=== PATIENT | male | born 1970 | race Caucasian/White ===

== ENCOUNTER 2016-06-27 06:43 | Inpatient (IN) ==
[~2016-06-27 06:43] MED LIST: AMIODARONE 450 MG/9 ML VIAL IV ONE; NOREPINEPHRINE 4 MG/4 ML VIAL IV ONE
[2016-06-27] MEDS ORDERED: AMIODARONE INJ 450 MG in DEXTROSE 5% 241 ML IV SCH (06:45)
--- NOTE | 2016-06-27 07:10 | Emergency Department Note ---
Tommy Crews Gwan, am scribing for, and in the presence of, Sheldon Gaspar MD 06:59. Chasity Crews Phillip K, MD, personally performed the services described in this documentation, ascribed by Terrell Sanders in my presence, and it is both accurate and complete . 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 Nurses noted that pt was present at gym this morning when he became unresponsive. Patient was found by a bystander at the gym to which EMS was alerted. Patient apparently had an unwitnessed arrest and was found unresponsive. Patient was taken and resuscitated. Patient had a return of circulation at 430 a.m. Air care transferred the patient here and is currently on amiodarone infusion,a levaphed infusion and insulin infusion. Patient is also on a Diprivan infusion and a bicarbonate infusion. Patient has received a total of 3 L of fluids. Patient's initial glucose at [facility] was over 900. Patient known diabetic and hypertension. Patient's initial pH was 6.97. On arrival to the ED the patient is breathing on his own. He is intubated. Patient's initial rhythm was V-fib. And he was countershocked several times and given amiodarone with return of pulse. Accu-Chek on arrival to the ED was 297. We will stop the insulin infusion. We also stopped the levaphed infusion. Onset (ago): hour(s) Consistency: constant Severity: severe Allergies/Adverse Reactions: Allergies Allergy/AdvReac Type Severity Reaction Status Date / Time No Known Allergies Allergy Verified 06/27/16 06:44 Home Medications: Home Medications Medication Instructions Recorded Confirmed Type Unable To Obtain [Unable to Obtain] 06/27/16 06/27/16 History Review of System - Review of System ROS unobtainable: due to endotracheal tube, due to mental status Medical,Surgical,& Family Hx - Medical History Cardio: History of: Hypertension Endocrine: History of: Diabetes Mellitus (IDDM) Exam Vital Signs: Vital Signs Temperature 97.7 F 06/27/16 06:43 Pulse Rate 118 H 06/27/16 06:43 Respiratory Rate 18 06/27/16 06:50 Blood Pressure 197/100 06/27/16 06:43 O2 Sat by Pulse Oximetry 91 L 06/27/16 06:43 - General Exam limited due to: level of distress (severe) General appearance: other (patient is intubated) - Head Head exam: Present: atraumatic - Eye Eye exam: Absent: PERRL (pupils are mid position and nonreactive to light.) - ENT ENT exam: Present: normal exam - Chest Chest inspection: Present: normal inspection - Respiratory Respiratory exam: Present: rales - Cardiovascular Cardiovascular exam: Present: normal rhythm, tachycardia. Absent: murmur, rubs - Abdominal Exam Abdominal exam: Present: soft, tenderness, normal bowel sounds. Absent: distention - Rectal Exam Rectal exam: Present: deferred - Extremities Exam Extremities exam: Present: normal inspection - Back Exam Back exam: Present: normal inspection - Neurological Exam Neurological exam: Present: other (patient intubated) - Skin Skin exam: Present: warm, dry Course Course Narrative: Patient discussed with the hospitalist. Results - Labs CBC & BMP: 06/27/16 07:02 06/27/16 Unknown Lab Results: I have reviewed the patients labs Labs: Laboratory Tests 06/27/16 06/27/16 06/27/16 07:00 07:26 Unknown ABG pH 7.333 L ABG pCO2 43.6 ABG pO2 243.0 H ABG HCO3 22.0 ABG Total CO2 20.2 L ABG O2 Saturation 99.2 ABG Base Excess -2.9 L POC Glucose 297 H Lactic Acid 7.2 H Laboratory Tests 06/27/16 07:02 WBC 23.7 H RBC 4.28 Hgb 13.1 L Hct 39.4 L Plt Count 249 Neut % (Auto) 86.9 H Lymph % (Auto) 6.3 L Neut # (Auto) 20.6 H Har[place] # (Auto) 0.9 H Lymphocytes 9 L - EKG EKG results: interpreted by ZOILA (sinus tachycardia with an old septal PR.) - Diagnostic Findings Procedure: Chest x-ray: report reviewed by me (1. Tubes and lines as above. 2. The interstitial markings are slightly prominent bilaterally. This could represents minimal pulmonary edema. ) Disposition Clinical Impression: status post cardiopulmonary arrest Disposition: Still a Patient
[2016-06-27 07:19] LABS: Basophils # 0.1 10*3/uL (0.0-0.2); Basophils % 0.3 % (0.0-0.8); Eosinophils # 0.1 10*3/uL (0.0-0.87); Eosinophils % 0.5 % (0.00-10.9); Hematocrit 39.4 VOL% (42.0-52.0); Hemoglobin 13.1 GM/DL (14.0-18.0); Immature Granulocytes % 2.3 %; Immature Granulocytes Absolute 0.54 #; Lymphocytes # 1.5 10*3/uL (1.4-4.0); Lymphocytes % 6.3 % (21.2-54.2); Mean Corpuscular HGB Conc 33.2 GM/DL (32-36); Mean Corpuscular Hemoglobin 31 PG (27-34); Mean Corpuscular Volume 92.1 FL (87-102); Mean Platelet Volume 10.6 FL (9.6-12.0); Monocytes # 0.9 10*3/uL (0.11-0.8); Monocytes % 3.7 % (1.7-12.7); Neutrophils # 20.6 10*3/uL (1.4-7.4); Neutrophils % 86.9 % (38.7-73.9); Platelet Count 249 T/CUMM (130-400); Red Blood Count 4.28 MC/CUMM (3.8-5.5); Red Cell Distribution Width 13.1 % (9.3-17.3); White Blood Count 23.7 T/CUMM (4-12)
--- NOTE | 2016-06-27 07:25 | XRay Report ---
Referring Physician: Sheldon Gaspar Exam: XR chest 1V portable Date: June 27, 2016 at 7:08 AM Reason: Post intubation Comparison: None Findings: An endotracheal tube is in place with its distal tip projecting above the aortic arch, approximately 4.5 cm above the idalia. A feeding tube is seen extending into the stomach and beyond the [id number]. The cardiac silhouette is normal in size. The interstitial markings are slightly prominent bilaterally, which may reflect minimal pulmonary edema. No pneumothorax or pleural effusion is identified. No acute osseous process is seen. Impression: 1. Tubes and lines as above. 2. The interstitial markings are slightly prominent bilaterally. This could represent minimal pulmonary edema. PROCEDURE INTERPRETED AT [facility] OF RADIOLOG[facility] Final Report Signed by: Dr. Zlueyma Beard
[2016-06-27] MEDS ORDERED: METOPROLOL TARTRATE 5 MG/5 ML VIAL IV ONE ×2 (07:31→07:35)
[2016-06-27 07:32] LABS: ABG Base Excess -2.9 MMOL/L (-2.5-2.5); ABG Oxygen Saturation 99.2 % (95-100); ABG PCO2 43.6 MM HG (35-48); ABG PH 7.333 (7.35-7.45); ABG TCO2 20.2 MMOL/L (23-27)
[2016-06-27 07:38] LABS: Band Neutrophils 2 % (0-10); Hypochromasia 1+; Lymphocytes 9 % (20-55); Platelet Estimate Adequate; Segmented Neutrophils 85 % (50-85); Total Cells Counted 100
[2016-06-27 07:43] LABS: Albumin 3.6 G/DL (3.4-5.0); Bilirubin,Total 0.4 MG/DL (0.2-1.0); Calcium 7.9 MG/DL (8.5-10.1); Potassium 3.6 MMOL/L (3.5-5.1); Total Protein 6.8 G/DL (6.4-8.3)
[2016-06-27] MEDS ORDERED: ALBUTEROL 2.5 MG/3 ML NEB RESP TX PRN (08:01)
--- NOTE | 2016-06-27 08:07 | CT Report ---
Referring physician: Chente Lopez Exam: CT brain without contrast Date: June 27, 2016 Comparison: None Reason: Status post code, found unresponsive, altered level of consciousness The patient is an inpatient who was admitted on June 27, 2016. Technique: Axial images of the head were obtained without the use of contrast. Total DLP was 1033.0 mGy*cm. Findings: The sulci are effaced, and there is poor moreira-white matter differentiation. This is concerning for diffuse cerebral edema. No hydrocephalus or midline shift is present. There is no evidence of recent intracranial hemorrhage or a focal acute infarction. No acute osseous process is seen. There is mild scattered mucosal thickening within the bilateral ethmoid air cells and sphenoid sinuses. The mastoid air cells are clear. Impression: The sulci are effaced, and there is poor moreira-white matter differentiation bilaterally. This is concerning for diffuse cerebral edema. Please correlate with clinical findings. Findings were discussed with Dr. Lopez on June 27, 2016 at 8:00 AM. This is a critical test. The CT exam was performed using one or more of the following dose reduction techniques: Automated exposure control and adjustment of the mA and/or kV according to patient size. PROCEDURE INTERPRETED AT [facility] DEPARTMENT OF RADIOLOGY Final Report Signed by: Dr. Zuleyma Beard
[2016-06-27 08:11] LABS: Troponin I Only 15.2 NG/ML (0.00-0.045)
[2016-06-27] MEDS ORDERED: ACETAMINOPHEN 325 MG TABLET PO PRN (08:13)
[2016-06-27] MEDS ORDERED: ONDANSETRON 4 MG/2 ML VIAL IV PRN (08:13)
[2016-06-27] MEDS ORDERED: PROPOFOL 1,000 MG/100 ML BOTTLE IV SCH (08:30)
[2016-06-27] MEDS ORDERED: fentaNYL 100 MCG/2 ML VIAL IV ONE (08:52)
[2016-06-27] MEDS ORDERED: CISATRACURIUM 10 MG/5 ML VIAL IV ONE (08:53)
[2016-06-27] MEDS: ENOXAPARIN 40 MG/0.4 ML SYRINGE SUBCUT SCH (08:57)
[2016-06-27] MEDS: FAMOTIDINE 20 MG/2 ML VIAL IV SCH ×2 (08:57→21:33)
[2016-06-27] MEDS: cefTRIAXone 1,000 MG in SODIUM CHLORIDE 0.9% 100 ML IV SCH (08:57)
[2016-06-27] MEDS: SODIUM CHLORIDE 0.9% 1,000 ML IV SCH ×2 (08:58→18:03)
[2016-06-27] MEDS ORDERED: GLUCAGON 1 MG VIAL IM PRN (09:00)
[2016-06-27] MEDS ORDERED: DEXAMETHASONE 4 MG/1 ML VIAL IV ONE (09:00)
[2016-06-27] MEDS ORDERED: DEXTROSE 50% 25 GM/50 ML VIAL IV PRN (09:00)
[2016-06-27] MEDS ORDERED: MIDAZOLAM 2 MG/2 ML VIAL IV ONE (09:00)
--- NOTE | 2016-06-27 09:00 | Hospitalist History & Physical ---
Assessment and Plan - Time spent with patient Time spent with patient: Greater than 30 minutes (1) s/p cardiac arrest Status: Acute Assessment and plan: 46 year old white male s/p an unwitnessed cardiac arrest. Unresponsive at the scene. Resuscitated at [facility]. Intubated and transferred to [facility]. Admitted to ICU on diprovan and amiodarone. Arrived on levophed and was severely hypertensive. 5mg of Lopressor normalized BP 121/90. Patient in critical condition with guarded prognosis. Will continue mechanical ventilation , trending labs, consult cardiology, neurology and pulmonology. Current Visit: Yes (2) Cerebral edema due to anoxia Status: Acute Assessment and plan: Head CT showed effaced sulci, and poor moreira-white matter differentiation bilaterally. Pulmonology has been consulted to assist in hyperventilating the patient. Hypothermia protocol has been initiated. Will repeat CT. Current Visit: Yes (3) Leukocytosis Status: Acute Assessment and plan: WBC 23.7. Empirically started Rocephin for broad spectrum coverage. Current Visit: Yes History of Present Illness Chief complaint: s/p cardiac arrest History of present illness: Mr. Nuñez is a 46 year old male with a history significant for hypertension and NIDDM who presented to the [facility] ED via airlift EMS from [facility] for further evaluation s/p unwitnessed cardiac arrest at around 4am this morning. Per [facility] report, the patient was found unresponsive this morning at [employer] gym in [place]. Timestamped video from the gym showed the patient passed out after a set of arm curls at "1752". There was someone else working out alongside him who immediately began BLS chest compressions after finding the patient unresponsive. EMS arrived on the scene at "1610", and the patient was taken to the [facility] ED where he was resusitated and intubated. Pulse was noted to return at 0430. On exam in the [facility] ED, the patient is intubated, breathing on his own, unresponsive to painful stimuli in upper and lower extremities with fixed, nonreactive pupils. While in the ED, the patient became severely hypertensive but responded quickly to 5mg of Lopressor. History was taken from the family who notes he has hypertension and is diabetic. The patient recently started a workout routine and would go to the gym at 3:30 every morning. They noted he had begun tapering off of his HTN meds d/t his exercising. Family denies a history of tobacco use, alcohol, CAD, HLD, lung disorders. Lab: WBC 23.7, H&H 13.1 and 39.4, pH 7.33, pcO2 43.6, pO2 243.0, HCO3 22, total CO2 20.2, BUN 34, cr 2.00, Glu 266, Lactic Acid 7.2, Trop 15.2 The patient's condition is critical with guarded prognosis. He will be admitted to the ICU for further evaluation and management. He is listed as a full code. This case has been discussed with Dr. Gaspar and Dr. Lopez. Home Medications Medication Instructions Recorded Confirmed Type Unable To Obtain [Unable to Obtain] 06/27/16 06/27/16 History Allergies Allergy/AdvReac Type Severity Reaction Status Date / Time No Known Allergies Allergy Verified 06/27/16 06:44 Medical,Surgical,& Family Hx - Medical History Cardio: History of: Hypertension Endocrine: History of: Diabetes Mellitus (NIDDM) - Social History Smoking Status: Unknown if ever smoked Frequency of Alcohol Use: Unknown Type of Drug Use: Unknown Marital Status: Lives With:: Spouse Functional capacity: independent ambulation ROS unobtainable: due to endotracheal tube (patient intubated and unresponsive to painful stimuli) Exam - Constitutional General appearance: over weight, other (intubated, unresponsive) - Head Head exam: Present: normal inspection, normocephalic - Eye Eye exam: Absent: conjunctival injection, nystagmus, scleral icterus, laceration to eyelids Pupils: Present: fixed (nonreactive to light) - ENT ENT exam: Present: normal exam, normal external ear exam - Neck Neck exam: Present: normal inspection. Absent: lymphadenopathy - Respiratory Respiratory exam: Present: accessory muscle use, other (mechanical ventilation) . Absent: rales, rhonchi, wheezes - Cardiovascular Cardiovascular exam: Present: tachycardia. Absent: bradycardia, carotid bruit, JVD - GI/Abdominal GI/Abdominal exam: Present: normal bowel sounds, soft. Absent: ascites, distended, mass, tenderness - Extremities Exam Extremities exam: Present: normal inspection, normal capillary refill. Absent: edema - Neurological Exam Neurological exam: Present: other (intubated and sedated). Absent: reflexes normal (unresponsive to painful stimuli) - Skin Skin exam: Present: normal color, warm, dry, intact. Absent: abrasion, erythema Results - Labs CBC & BMP: 06/27/16 07:02 06/27/16 Unknown Lab Results: I have reviewed the past 24 hour labs - EKG EKG results: interpreted by ERMD - Diagnostic Findings Procedure: Chest x-ray: image reviewed by me, report reviewed by me ( unremarkable), CT: image reviewed by me, report reviewed by me (suggestive of cerebral edema)
[2016-06-27] MEDS ORDERED: POTASSIUM CHLORIDE RIDER 20 MEQ in PREMIX 1 EACH IV PRN (09:14)
[2016-06-27] MEDS ORDERED: POTASSIUM CHLORIDE RIDER 10 MEQ in PREMIX 1 EACH IV PRN ×2 (09:14→11:22)
[2016-06-27] MEDS ORDERED: MAGNESIUM SULF RIDER 4 GM in PREMIX 1 EACH IV PRN (09:15)
[2016-06-27] MEDS ORDERED: MAGNESIUM SULF RIDER 2 GM in PREMIX 1 EACH IV PRN ×2 (09:15→11:22)
[2016-06-27 09:28] LABS: Phosphorous 4.9 MG/DL (2.5-4.9)
[2016-06-27 09:29] LABS: INR 1.1; PT Patient Result 12.2 SECS; Partial Thromboplastin Time 23.1 SECS (0-40)
[2016-06-27] MEDS ORDERED: MANNITOL 100 GM in PREMIX 1 EACH IV ONE (09:30)
--- NOTE | 2016-06-27 09:51 | EKG Report ---
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
[2016-06-27 10:19] LABS: ABG Base Excess -4.3 MMOL/L (-2.5-2.5); ABG HCO3 20.9 MMOL/L (20-26); ABG Oxygen Saturation 98.8 % (95-100); ABG PCO2 32.2 MM HG (35-48); ABG PH 7.393 (7.35-7.45); ABG TCO2 17.2 MMOL/L (23-27)
[2016-06-27] MEDS: fentaNYL INJ 1,250 MCG in SODIUM CHLORIDE 0.9% 225 ML IV SCH ×2 (10:30→21:49)
[2016-06-27] MEDS: MIDAZOLAM 100 MG in SODIUM CHLORIDE 0.9% 80 ML IV SCH (10:33)
--- NOTE | 2016-06-27 10:34 | Cardiology Consult Note ---
Assessment and Plan - Time spent with patient Time spent with patient: Greater than 30 minutes (1) s/p cardiac arrest Status: Chronic Assessment and plan: Will plan for heart cath this morning in order to definitively rule out underlying CAD. Will keep patient NPO and plan for heart cath this morning with Dr. Molina. Risk and benefit of procedure was discussed with patient's per Dr. Boss. She agrees to proceed with this procedure at this time. We will keep patient n.p.o. and plan for heart catheterization per Dr. Molina today. Current Visit: Yes (2) Hypertension Status: Chronic Assessment and plan: Blood pressure is currently well controlled. Currently per arterial line 126/ 73. We will continue with current plan of care. Current Visit: Yes (3) Diabetes Status: Chronic Assessment and plan: Management per hospital medicine. Current Visit: Yes (4) Cerebral edema due to anoxia Status: Acute Assessment and plan: Management per hospital medicine. Current Visit: Yes History of Present Illness - Data of Consult Patient: new to practice Consult date: 06/27/16 Requesting Physician: Kapil Whitley - Consult Narrative Reason for consult: Status post cardiac arrest History of present illness: Mr. Nuñez is a 46 year old male without known history of coronary artery disease, not routinely followed by cardiology. Patient is status post cardiopulmonary arrest early this morning. He is currently divided and sedated in the CCU. No family is available at this time. Majority of information in this consult note was obtained from medical personnel and patient's medical record. Patient has a past medical history of hypertension and diabetes. Apparently, family denies a history of tobacco and alcohol use. He reports that he recently started a workout routine and has begun attending the gym at around 330 every morning. His family also reports that his been tapering off his blood pressure medicines lately since he has started his new workout routine. He has cardiac risk factors significant for obesity, diabetes, and hypertension. Patient has family history of heart disease. Of note, does report that he has been complaining of mild chest pain for the past couple of days. Patient presented to the emergency department via air care from [facility] after having a cardiopulmonary arrest approximately 2 hours prior to arrival. Patient was at the gym working out at 3:30 AM when he became unresponsive. Per [facility] report, the patient was found unresponsive this morning at [employer] gym in [place]. Timestamped video from the gym showed the patient passed out after a set of arm curls. There was someone else working out who immediately began chest compressions after finding the patient unresponsive. Patient was then taken to [facility] and resuscitated and intubated. Upon arrival to [facility], he was noted to be in the V-fib. He received several shocks and was given amiodarone. He had a return of circulation around 4:30 AM. Blood glucose was noted to be over 900 at [facility]. Subsequently, insulin infusion was started. Once in stable condition , patient was in transfer via air care to [facility]. Upon arrival to [place] [facility], her Accu-Chek was noted to be 297. Insulin infusion was then stopped at that time. He was also noted to be severely hypertensive. He responded well after receiving 5 mg of Lopressor. Patient was seen and examined in the CCU. He is currently sedated and intubated at this time. Hypothermia protocol was initiated upon arrival to [facility]. He remains extremely hypertensive and tachycardic. Troponin is noted to be 15.2. EKG does reveal poor R-wave progression. No prior EKGs available for comparison. A blood cell count is elevated at 23.7 with a left shift. Creatinine is noted to be 2.0. Lactic acid 7.2. Nitrites are stable with potassium of 3.6 and magnesium 2.5. AST and ALT are also elevated, along with Amylase and Lipase. Patient appears to be in multi-system organ failure. Head CT reveals diffuse cerebral edema. After discussing case with Dr. Boss, it was decided that patient needs a heart cath in order to definitively rule out underlying CAD. Will keep patient NPO and plan for heart cath this morning with Dr. Molina. CC: Chente Lopez MD - Home Medications and Allergies Home Medications: Home Medications Medication Instructions Recorded Confirmed Type Unable To Obtain [Unable to Obtain] 06/27/16 06/27/16 History Allergies/Adverse Reactions: Allergies Allergy/AdvReac Type Severity Reaction Status Date / Time No Known Allergies Allergy Verified 06/27/16 06:44 ROS unobtainable: due to endotracheal tube Medical,Surgical,& Family Hx - Medical History Cardio: History of: Hypertension Endocrine: History of: Diabetes Mellitus (NIDDM) - Surgical History Surgical History: noncontributory - Family History Family History: noncontributory - Social History Smoking Status: Unknown if ever smoked Frequency of Alcohol Use: Unknown Type of Drug Use: Unknown Physical Examination Vital Signs Temp Pulse Resp BP Pulse Ox 97.1 F L 118 H 30 H 197/100 91 L 06/27/16 06:43 06/27/16 06:43 06/27/16 06:43 06/27/16 06:43 06/27/16 06:43 General: Present: Other (Patient is sedated and ventilated in the CCU.) Neck: Present: Supple Neck Cardiac: Present: Reg Rate and Rhythm, Regular Rate, Regular Rhythm Lungs: Present: Clear Ascult./Percussion, Other (Ventilator breath sounds.) Abdomen: Present: Active Bowel Sounds, Other (Soft). Absent: Firm, Distended Extremities: Present: Normal Gait, No Clubbing, No Cyanosis, No Edema Result/EKG - Labs CBC & BMP: 06/27/16 07:02 06/27/16 Unknown Lab Results: I have reviewed the past 24 hour labs Labs: Laboratory Results - last 24 hr 06/27/16 06/27/16 06/27/16 07:25 07:26 07:39 ABG pH 7.333 L ABG pCO2 43.6 ABG pO2 243.0 H ABG HCO3 22.0 ABG Total CO2 20.2 L ABG O2 Saturation 99.2 ABG Base Excess -2.9 L Sodium Potassium Chloride Carbon Dioxide Anion Gap BUN Creatinine GFR Calculation BUN/Creatinine Ratio Glucose Calculated Osmolality Lactic Acid Calcium Magnesium 2.5 H Total Bilirubin AST ALT Alkaline Phosphatase Total Creatine Kinase CK-MB (CK-2) CK and CKMB Interp Troponin I B-Natriuretic Peptide < 2 L Total Protein Albumin Globulin Albumin/Globulin Ratio 06/27/16 06/27/16 06/27/16 09:36 10:00 Unknown ABG pH 7.393 ABG pCO2 32.2 L ABG pO2 139.0 H ABG HCO3 20.9 ABG Total CO2 17.2 L ABG O2 Saturation 98.8 ABG Base Excess -4.3 L Sodium Potassium Chloride Carbon Dioxide Anion Gap BUN Creatinine GFR Calculation BUN/Creatinine Ratio Glucose Calculated Osmolality Lactic Acid 4.7 H 7.2 H Calcium Magnesium Total Bilirubin AST ALT Alkaline Phosphatase Total Creatine Kinase CK-MB (CK-2) CK and CKMB Interp Troponin I B-Natriuretic Peptide Total Protein Albumin Globulin Albumin/Globulin Ratio 06/27/16 06/27/16 Unknown Unknown ABG pH ABG pCO2 ABG pO2 ABG HCO3 ABG Total CO2 ABG O2 Saturation ABG Base Excess Sodium 143 Potassium 3.6 Chloride 106 Carbon Dioxide 24 Anion Gap 16.6 H BUN 34 H Creatinine 2.00 H GFR Calculation 51 BUN/Creatinine Ratio 17.00 Glucose 266 H Calculated Osmolality 301.0 Lactic Acid Calcium 7.9 L Magnesium Total Bilirubin 0.40 AST 774 H ALT 886 H Alkaline Phosphatase 63 Total Creatine Kinase 2316 H CK-MB (CK-2) 114.9 H CK and CKMB Interp 5.0 Troponin I 15.200 H B-Natriuretic Peptide Total Protein 6.8 Albumin 3.6 Globulin 3.2 Albumin/Globulin Ratio 1.1
[2016-06-27] MEDS: CISATRACURIUM 200 MG in SODIUM CHLORIDE 0.9% 100 ML IV SCH (10:37)
[2016-06-27 10:58] LABS: Barbiturates Screen,Urine Negative (Negative); Benzodiazepines Screen,Urine Negative (Negative); Cannabinoid Screen,Urine Negative (Negative); Opiate Screen,Urine Negative (Negative); Phencyclidine Screen,Urine Negative (Negative)
--- NOTE | 2016-06-27 11:07 | Pulmonology Consult Note ---
History of Present Illness Chief complaint: Acute cardiac arrest. Mechanical ventilation. Arctic sun. History of present illness: Mr. Nuñez is a 46 year old white male from [place]. He was found at 4 PM unresponsive in the gym that he worked out and in the mornings. He was taken to [place] emergency room and resuscitative measures were begun. At the present time he has evidence of acute myocardial infarction. He is on mechanical ventilation. He will be treated with Arctic sun. I have discussed this with his . He has a history of diabetes and high blood pressure. 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 He has a very strong family history of early myocardial infarctions. I told her at some point the patient will need fiberoptic bronchoscopy as she likely aspirated. I have told her tomorrow the next day depending upon his stability. She is agreeable. Elton Spann nurse practitioner was present. Ventilator changes have been made. Patient will be on weaning protocols and physical therapy protocols as soon as she is off of Arctic sun. CT of the brain shows cerebral edema. Patient will be treated with Decadron for cerebral edema and hopefully this will help prevent the onset of adult respiratory distress syndrome. I will alveolar hyperventilating and keep his PCO2 is about 30 to help with cerebral edema. Home Medications Medication Instructions Recorded Confirmed Type Unable To Obtain [Unable to Obtain] 06/27/16 06/27/16 History Allergies Allergy/AdvReac Type Severity Reaction Status Date / Time No Known Allergies Allergy Verified 06/27/16 06:44 Exam (Pulmonay) H&P - Constitutional Vitals: Period Temp Pulse Resp BP Sys/Elias Pulse Ox Last 24 Hr 22 95 Medical,Surgical,& Family Hx - Medical History Cardio: History of: Hypertension HEENT: History of: Dental Problems (missing front tooth) Endocrine: History of: Diabetes Mellitus (IDDM), Diabetes Mellitus (NIDDM) - Family History Family History: Reports;: Family Diabetes (father/brother), Family Heart Disease (father/brother), Family Hypertension (mother) - Social History Smoking Status: Unknown if ever smoked Frequency of Alcohol Use: Unknown Type of Drug Use: Unknown Results - Labs CBC & BMP: 06/27/16 07:02 06/27/16 Unknown
--- NOTE | 2016-06-27 12:01 | Event Note ---
I personally interviewed and examined the patient, reviewed the chart and discussed medical decision-making with practitioner Guanako. I have read her note and agree with the findings documented therein. I'm unable to axis is noted inside via computer currently. The patient is status post cardiac arrest with ventricular fibrillation. We will proceed with left heart catheterization. I have discussed the role, risks and benefits with the patient 's . I have also discussed this case with Dr. Molina will be performing the procedure.
[2016-06-27] MEDS ORDERED: LIDOCAINE 1% 20 ML VIAL ONE (12:03)
[2016-06-27] MEDS ORDERED: HEPARIN 5,000 UNIT/1 ML VIAL ONE (12:42)
[2016-06-27] MEDS ORDERED: TIROFIBAN 5,000 MCG/100 ML PREMIX IV ONE (12:43)
[2016-06-27] MEDS ORDERED: TICAGRELOR 90 MG TABLET ONE (12:46)
[2016-06-27] MEDS ORDERED: ASPIRIN CHEW 81 MG TABLET PO ONE ×2 (12:46→12:48)
[2016-06-27] MEDS ORDERED: TIROFIBAN 5,000 MCG/100 ML PREMIX IV SCH (12:50)
[2016-06-27] MEDS ORDERED: ASPIRIN 300 MG SUPP RECTAL ONE (13:37)
--- NOTE | 2016-06-27 13:42 | Operative Note ---
Date of procedure: 06/27/16 Procedure Preformed: Left heart cath Coronary angiography no Left ventriculography--because creatinine is 2.0 and LVEDP is high and the patient is getting an echo/Doppler Aggrastat bolus and infusion-for ACS/PCI Status post successful stenting of the proximal LAD-2.25 x 18 mm Zions Alpine, after pre-dilating with a 2.0 x 12 mm NC trek Angiogram of the left femoral artery Aspirin 325 mg was given per the NG tube-it could not be determined whether he had had aspirin since his admit or not Loading with Brilinta, 180 mg p.o.--per NG tube Angio-Seal of the right femoral artery-successful Surgeon / Physician: Misael Molina Filler Operator: Magaly Jeong Post-op diagnosis: same (46-year-old man who presents with a cardiopulmonary arrest after exercising at a fitness center. He did not have ST elevation in his EKG. His troponin is elevated. The concern is that CAD may be has caused the cardiopulmonary arrest. 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 He will have the usual medications post [place] since his beta-roscoe, etc., if he can tolerate them. The patient is in the midst of his therapeutic hypothermia. Hopefully, after this is done he will wake up and is my will be clear. If the patient survives, the patient will be on antiplatelet medications to include aspirin indefinitely and Plavix or Brilinta for at least a year. Follow-up will be scheduled. My post-cath check to Addenda: I saw the patient post-cath. the groin puncture site and distal pulse are stable. vital signs are stable and the patient will be observed closely overnight. Specimens: none sent Estimated blood loss: minimal Condition: critical Anesthesia: local Disposition: ICU
--- NOTE | 2016-06-27 13:53 | Cardiology Operative Report ---
Date of Procedure:: 06/27/16 Post-op diagnosis: same (46-year-old man who presents with a cardiopulmonary arrest after exercising at a fitness center. He did not have ST elevation in his EKG. His troponin is elevated. The concern is that CAD may be has caused the cardiopulmonary arrest. He is referred for diagnostic catheterization and possible intervention.) Procedure: Date of procedure: 06/27/16 Procedure Preformed: Left heart cath Coronary angiography no Left ventriculography--because creatinine is 2.0 and LVEDP is high and the patient is getting an echo/Doppler Aggrastat bolus and infusion-for ACS/PCI Status post successful stenting of the proximal LAD-2.25 x 18 mm Zions Alpine, after pre-dilating with a 2.0 x 12 mm NC trek Angiogram of the left femoral artery Aspirin 325 mg was given per the NG tube-it could not be determined whether he had had aspirin since his admit or not Loading with Brilinta, 180 mg p.o.--per NG tube Angio-Seal of the right femoral artery-successful Surgeon / Physician: Misael Molina Sewer Tapper: Magaly Jeong Post-op diagnosis: same (46-year-old man who presents with a cardiopulmonary arrest after exercising at a fitness center. He did not have ST elevation in his EKG. His troponin is elevated. The concern is that CAD may be has caused the cardiopulmonary arrest. He is referred for diagnostic catheterization and possible intervention.) procedure: The patient was prepped and draped in usual manner. Entered the right femoral artery via the Seldinger technique. I used a sheath and then used a JL4 and engaged left coronary. Multiple views were taken. I then exchanged for a JR4. Multiple views of the right coronary were taken. I then used a JR4 to measure and LVEDP. No left ventriculography was done. Coronary intervention was done-see below. The catheters were then removed from the patient. Please see the data sheets for the details of catheters used. Intervention: Cardiovascular surgery was available for any complications. The coronary intervention was done using a JL4 guiding catheter, 0.014 run through wire. After predilatation with a 2.0 x 12 mm NC trek, then placed a 2.25 x 18 mm Zions Alpine coronary stent across the lesion. It was deployed. Afterwards, there was a good result.. Angiogram of the right femoral artery was done, either at that time or as a follow-through from the aortogram/left ventriculogram. Angio-Seal was done. Patient was transferred to her room on telemetry in satisfactory condition. Please see the cath report for details of the pressures and times. Complications: none Hemodynamic data: LVEDP was 36 mmHg. Angiographic data: The left main coronary was large and had minimal luminal irregularities. The left anterior descending artery was small to moderate in size. There is one major diagonal. There was a proximal 99% narrowing in addition BRCYE grade II flow to the distal vessel. Otherwise, there are minimal luminal irregularities. The left circumflex system was moderate to large. It was 1 major obtuse marginal and 1 posterior lateral branches. The small posterolateral branch, 1 mm diameter, had 80% or more narrowing, but it was too small to intervene upon. Otherwise there are minimal luminal irregularities in the circumflex The right coronary artery was large in size, dominant vessel with the PDA. There was a moderate sized post lateral branch. there were minimal luminal irregularities of the right coronary. No left ventriculography was done to minimize contrast exposure After intervention of the proximal LAD there was a 0% residual. There is a slight stepup and stepdown. There is BRYCE grade III flow distally. . Angiogram of the left femoral artery revealed the puncture site to be in a large vessel, above the bifurcation. It was suitable for Angio-Seal. 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 He will have the usual medications post [place] since his beta-roscoe, etc., if he can tolerate them. The patient is in the midst of his therapeutic hypothermia. Hopefully, after this is done he will wake up and is my will be clear. If the patient survives, the patient will be on antiplatelet medications to include aspirin indefinitely and Plavix or Brilinta for at least a year. Follow-up will be scheduled. My post-cath check to Addenda: I saw the patient post-cath. the groin puncture site and distal pulse are stable. vital signs are stable and the patient will be observed closely overnight. Specimens: none sent Estimated blood loss: minimal Condition: critical Anesthesia: local Disposition: ICU Additional CC's: Shakir Boss Surgeon / Physician: Misael Molina Estimated blood loss: minimal Specimens: none sent Condition: critical
[2016-06-27 14:21] LABS: Basophils % 0.1 % (0.0-0.8); Hematocrit 37.4 VOL% (42.0-52.0); Hemoglobin 12.3 GM/DL (14.0-18.0); Immature Granulocytes % 0.6 %; Immature Granulocytes Absolute 0.15 #; Lymphocytes # 0.4 10*3/uL (1.4-4.0); Lymphocytes % 1.9 % (21.2-54.2); Mean Corpuscular HGB Conc 32.9 GM/DL (32-36); Mean Corpuscular Hemoglobin 30 PG (27-34); Mean Corpuscular Volume 92.1 FL (87-102); Mean Platelet Volume 10.5 FL (9.6-12.0); Monocytes # 0.8 10*3/uL (0.11-0.8); Monocytes % 3.2 % (1.7-12.7); Neutrophils % 94.2 % (38.7-73.9); Platelet Count 294 T/CUMM (130-400); Red Blood Count 4.06 MC/CUMM (3.8-5.5); Red Cell Distribution Width 13.2 % (9.3-17.3); White Blood Count 23.4 T/CUMM (4-12)
[2016-06-27 14:34] LABS: INR 1.3; PT Patient Result 13.8 SECS
[2016-06-27 14:43] LABS: Partial Thromboplastin Time 60.9 SECS (0-40)
[2016-06-27] MEDS ORDERED: AMIODARONE 450 MG/9 ML VIAL IV ONE ×2 (14:44→14:58)
[2016-06-27] MEDS: AMIODARONE INJ 450 MG in DEXTROSE 5% 241 ML IV SCH (14:55)
[2016-06-27] MEDS: MANNITOL 25 GM in PREMIX 1 EACH IV SCH ×2 (15:13→21:34)
[2016-06-27] MEDS: MINERAL OIL/PETROLATUM OPH OINT 3.5 GM TUBE BOTH EYES SCH ×2 (15:14→21:35)
[2016-06-27] MEDS: DEXAMETHASONE 4 MG/1 ML VIAL IV SCH ×2 (15:14→21:34)
[2016-06-27 15:21] LABS: Calcium 6.8 MG/DL (8.5-10.1); Magnesium 1.9 MG/DL (1.8-2.4); Osmolality,Calculated 299.7 MOS/KG (273-304)
[2016-06-27 15:32] LABS: Band Neutrophils 1 % (0-10); Lymphocytes 2 % (20-55); Platelet Estimate Adequate; Segmented Neutrophils 94 % (50-85); Total Cells Counted 100
[2016-06-27 15:33] LABS: Potassium 6.4 MMOL/L (3.5-5.1)
[2016-06-27] MEDS: INSULIN REGULAR 100 UNIT/ML IV SCH ×2 (15:43→18:05)
[2016-06-27 17:23] LABS: Calcium 6.5 MG/DL (8.5-10.1); Osmolality,Calculated 305.5 MOS/KG (273-304); Potassium 5.4 MMOL/L (3.5-5.1)
[2016-06-27] MEDS ORDERED: INSULIN REGULAR 100 UNIT/ML IV ONE (17:46)
[2016-06-27] MEDS: INSULIN REGULAR DRIP 100 ML IV SCH (18:08)
[2016-06-27] MEDS ORDERED: CALCIUM GLUCONATE 2,000 MG in SODIUM CHLORIDE 0.9% 100 ML IV ONE (19:09)
[2016-06-27 19:19] LABS: ABG Base Excess -8.2 MMOL/L (-2.5-2.5); ABG HCO3 17.9 MMOL/L (20-26); ABG Oxygen Saturation 99.6 % (95-100); ABG PCO2 22.8 MM HG (35-48); ABG PH 7.415 (7.35-7.45); ABG TCO2 12.8 MMOL/L (23-27)
[2016-06-27] MEDS: SODIUM BICARB INJ 150 MEQ in DEXTROSE 5% 850 ML IV SCH (19:41)
[2016-06-27 19:49] LABS: Calcium 6.6 MG/DL (8.5-10.1); Osmolality,Calculated 313.1 MOS/KG (273-304); Potassium 5.1 MMOL/L (3.5-5.1)
[2016-06-27 20:29] LABS: Basophils % 0.1 % (0.0-0.8); Eosinophils % 0.1 % (0.00-10.9); Hematocrit 36.5 VOL% (42.0-52.0); Immature Granulocytes % 0.6 %; Immature Granulocytes Absolute 0.11 #; Lymphocytes # 0.7 10*3/uL (1.4-4.0); Lymphocytes % 3.6 % (21.2-54.2); Mean Corpuscular HGB Conc 32.9 GM/DL (32-36); Mean Corpuscular Hemoglobin 30 PG (27-34); Mean Corpuscular Volume 92.2 FL (87-102); Mean Platelet Volume 10.7 FL (9.6-12.0); Monocytes # 0.5 10*3/uL (0.11-0.8); Monocytes % 2.7 % (1.7-12.7); Neutrophils # 16.9 10*3/uL (1.4-7.4); Neutrophils % 92.9 % (38.7-73.9); Platelet Count 242 T/CUMM (130-400); Red Blood Count 3.96 MC/CUMM (3.8-5.5); Red Cell Distribution Width 13.4 % (9.3-17.3); White Blood Count 18.2 T/CUMM (4-12)
[2016-06-27 20:41] LABS: INR 1.2; PT Patient Result 12.4 SECS; Partial Thromboplastin Time 31.8 SECS (0-40)
--- NOTE | 2016-06-27 20:52 | Event Note ---
We discussed the case marisol with Dr. Boss with cardiology. She has offered to take the patient as a transfer onto her service.
[2016-06-27 20:58] LABS: Band Neutrophils 1 % (0-10); Lymphocytes 5 % (20-55); Segmented Neutrophils 93 % (50-85); Total Cells Counted 100
[2016-06-27 20:59] LABS: Platelet Estimate Adequate
[2016-06-27] MEDS: NOREPINEPHRINE 8 MG in SODIUM CHLORIDE 0.9% 242 ML IV SCH (21:23)
[2016-06-27 21:30] LABS: Apearance,Urine Slightly Hazy (Clear); Bilirubin,Urine Negative (Negative); Blood, Urine Large mg/dL (Negative); Glucose,Urine (UA) >=500 mg/dL (Negative); Ketones,Urine Negative (Negative); Mucus,Urine Occasional /LPF (Occasional); Nitrite,Urine Negative (Negative); Protein,Urine Negative; RBC,Urine 13 /HPF (0-4); Squamous Epithelial Cell,Urine Occasional /HPF (0-10); Urine Color Yellow (Yellow); Urine Specific Gravity 1.028 (1.001-1.035); Urine Urobilinogen < 2.0 EU/DL (0.2-1.0); WBC,Urine 5 /HPF (0-6)
[2016-06-27] MEDS: TICAGRELOR 90 MG TABLET PO SCH (21:55)
[2016-06-28] MEDS: CISATRACURIUM 200 MG in SODIUM CHLORIDE 0.9% 100 ML IV SCH ×2 (00:08→17:58)
[2016-06-28] MEDS: SODIUM CHLORIDE 0.9% 1,000 ML IV SCH ×5 (00:44→20:56)
[2016-06-28 02:33] LABS: Basophils % 0.1 % (0.0-0.8); Hematocrit 34.6 VOL% (42.0-52.0); Hemoglobin 11.8 GM/DL (14.0-18.0); Immature Granulocytes % 0.6 %; Immature Granulocytes Absolute 0.12 #; Lymphocytes # 0.7 10*3/uL (1.4-4.0); Lymphocytes % 3.5 % (21.2-54.2); Mean Corpuscular HGB Conc 34.1 GM/DL (32-36); Mean Corpuscular Hemoglobin 30 PG (27-34); Mean Corpuscular Volume 88.9 FL (87-102); Mean Platelet Volume 10.7 FL (9.6-12.0); Monocytes # 0.9 10*3/uL (0.11-0.8); Monocytes % 4.3 % (1.7-12.7); Neutrophils # 18.7 10*3/uL (1.4-7.4); Neutrophils % 91.5 % (38.7-73.9); Platelet Count 221 T/CUMM (130-400); Red Blood Count 3.89 MC/CUMM (3.8-5.5); Red Cell Distribution Width 13.5 % (9.3-17.3); White Blood Count 20.4 T/CUMM (4-12)
[2016-06-28 03:00] LABS: INR 1.1; Partial Thromboplastin Time 30.1 SECS (0-40)
[2016-06-28 03:04] LABS: Calcium 7.2 MG/DL (8.5-10.1); Potassium 4.2 MMOL/L (3.5-5.1)
[2016-06-28 03:15] LABS: Lymphocytes 4 % (20-55); Segmented Neutrophils 92 % (50-85); Total Cells Counted 100
[2016-06-28 03:16] LABS: Burr Cells 3+; Platelet Estimate Normal
[2016-06-28] MEDS: DEXAMETHASONE 4 MG/1 ML VIAL IV SCH ×4 (03:54→21:34)
[2016-06-28] MEDS: MANNITOL 25 GM in PREMIX 1 EACH IV SCH ×4 (03:54→22:34)
[2016-06-28 04:09] LABS: ABG HCO3 15.1 MMOL/L (20-26); ABG Oxygen Saturation 98.9 % (95-100); ABG PH 7.497 (7.35-7.45); ABG PO2 356.5 MM HG (80-95); ABG TCO2 15.7 MMOL/L (23-27)
[2016-06-28 04:46] LABS: ABG PCO2 19.9 MM HG (35-48)
[2016-06-28 05:05] LABS: Albumin 2.9 G/DL (3.4-5.0); Bilirubin,Total 0.4 MG/DL (0.2-1.0); Calcium 7.1 MG/DL (8.5-10.1); Magnesium 2.1 MG/DL (1.8-2.4); Osmolality,Calculated 306.8 MOS/KG (273-304); Potassium 4.1 MMOL/L (3.5-5.1); Total Protein 5.3 G/DL (6.4-8.3)
--- NOTE | 2016-06-28 05:32 | EKG Report ---
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
[2016-06-28] MEDS: SODIUM BICARB INJ 150 MEQ in DEXTROSE 5% 850 ML IV SCH (05:34)
--- NOTE | 2016-06-28 06:01 | EKG Report ---
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
[2016-06-28 06:38] LABS: Calcium 7.3 MG/DL (8.5-10.1); Osmolality,Calculated 304.8 MOS/KG (273-304)
[2016-06-28] MEDS: AMIODARONE INJ 450 MG in DEXTROSE 5% 241 ML IV SCH (06:52)
[2016-06-28 07:05] LABS: Basophils % 0.1 % (0.0-0.8); Hemoglobin 11.7 GM/DL (14.0-18.0); Immature Granulocytes % 0.5 %; Immature Granulocytes Absolute 0.12 #; Lymphocytes # 0.8 10*3/uL (1.4-4.0); Lymphocytes % 3.3 % (21.2-54.2); Mean Corpuscular HGB Conc 34.4 GM/DL (32-36); Mean Corpuscular Hemoglobin 31 PG (27-34); Mean Corpuscular Volume 88.8 FL (87-102); Mean Platelet Volume 10.9 FL (9.6-12.0); Monocytes # 0.7 10*3/uL (0.11-0.8); Monocytes % 2.9 % (1.7-12.7); Neutrophils # 21.2 10*3/uL (1.4-7.4); Neutrophils % 93.2 % (38.7-73.9); Platelet Count 232 T/CUMM (130-400); Red Blood Count 3.83 MC/CUMM (3.8-5.5); Red Cell Distribution Width 13.6 % (9.3-17.3); White Blood Count 22.8 T/CUMM (4-12)
[2016-06-28 07:14] LABS: INR 1.2; PT Patient Result 12.3 SECS
[2016-06-28 07:27] LABS: Band Neutrophils 1 % (0-10); Hypochromasia Slight; Lymphocytes 4 % (20-55); Microcytosis 1+; Segmented Neutrophils 93 % (50-85); Total Cells Counted 100
[2016-06-28 07:28] LABS: Platelet Estimate Normal
[2016-06-28 07:28] LABS: INR 1.2; PT Patient Result 12.3 SECS; Partial Thromboplastin Time 30.6 SECS (0-40)
--- NOTE | 2016-06-28 08:12 | ECHO Report ---
Steven Nuñez Exam Date: 06/27/2016 11:29 Referring Physician: Technologist: Florina Tipton Age: 46 Ht (in): 70 Wt (lb): 250 Gender: M Exam Location: [facility] Echo Indications: Cardiac arrest, diabetic, HTN BP: 188 / 93 HR: 118 Rhythm: Sinus Technical Quality: Fair IMPRESSIONS Severely reduced LV systolic function with regional wall motion as described below. Normal diastolic function. Mild to moderate concentric left ventricular hypertrophy. Mild left atrial enlargement. Mild mitral regurgitation. Moderate tricuspid regurgitation. MEASUREMENTS (Male / Female) Normal Values 2D ECHO LV Diastolic Diameter PLAX 4.8 cm 4.2 - 5.9 / 3.9 - 5.3 cm LV Systolic Diameter PLAX 3.7 cm LV Fractional Shortening PLAX 23.8 % IVS Diastolic Thickness 1.8 cm 0.6 - 1.0 / 0.6 - 0.9 cm LVPW Diastolic Thickness 1.3 cm 0.6 - 1.0 / 0.6 - 0.9 cm RV Internal Dim ED PLAX 2.6 cm Aortic Root Diameter 2.9 cm LA Systolic Diameter LX 4.2 cm 3.0 - 4.0 / 2.7 - 3.8 cm DOPPLER TR Peak Velocity 280.0 cm/s TR Peak Gradient 31.4 mmHg FINDINGS Left Ventricle Mild to moderate left ventricular hypertrophy. Severely decreased left ventricular systolic function, left ventricular ejection fraction is estimated at 20-25%. The anterior wall, apex, and anterior septum are severely hypokinetic if not akinetic. Right Ventricle Normal right ventricular size. Right Atrium Normal right atrial size. Left Atrium Mildly increased left atrial diameter. Mitral Valve Mild mitral valve sclerosis. Mild mitral valve regurgitation. Aortic Valve Mild aortic valve sclerosis. Tricuspid Valve Morphologically normal tricuspid valve. Moderate tricuspid valve regurgitation. Tricuspid regurgitation velocities suggest a PAP of 31.4 mmHg + RAP. Pulmonic Valve Morphologically normal pulmonic valve. Pericardium No pericardial effusion. Aorta Normal size aortic root and proximal ascending aorta. Silvia Boss MD (Electronically Signed) Final Date: 28 June 2016 08:11
--- NOTE | 2016-06-28 08:40 | Physician Query Form ---
CLICK EDIT DOCUMENT TO SELECT QUERY ANSWER --> OK --> SIGN Missy Caraballo RN, CCDS Certified Clinical Assembly Cleaner W) [phone] (f) [phone] [email or web address] PROVIDERS: Make your selection(s) from the choices in EACH section by typing an "x" and enter comments in the comment section. Please use your independent medical judgment in providing your response. This request does not imply that any particular answer is desired or expected. CLINICAL INDICATORS: (Providers should not edit this section) "AST and ALT are also elevated, along with Amylase and Lipase. Patient appears to be in multi-system organ failure" AST of 774# and ALT of 886# Based on the above, could you clarify the appropriate diagnosis, if significant , that supports the above abnormalities and additional evaluation, monitoring, and/or treatment rendered: ( x) Patient was treated or monitored for acute liver failure ( ) Patient was not treated or monitored for acute liver failure ( ) Other, please specify: ( ) Clinically unable to determine COMMENTS: Use of terms such as suspected, likely, or probable (associated with a specific diagnosis that is being evaluated, monitored, or treated as if it exists) are acceptable and can be restated in the discharge summary if not ruled out. MTDD
[2016-06-28] MEDS: cefTRIAXone 1,000 MG in SODIUM CHLORIDE 0.9% 100 ML IV SCH (08:51)
[2016-06-28] MEDS: FAMOTIDINE 20 MG/2 ML VIAL IV SCH (08:51)
[2016-06-28] MEDS: TICAGRELOR 90 MG TABLET PO SCH ×2 (08:52→20:57)
[2016-06-28] MEDS: ASPIRIN CHEW 81 MG TABLET PO SCH (08:52)
[2016-06-28] MEDS: MINERAL OIL/PETROLATUM OPH OINT 3.5 GM TUBE BOTH EYES SCH ×3 (08:53→21:36)
[2016-06-28] MEDS: ENOXAPARIN 40 MG/0.4 ML SYRINGE SUBCUT SCH (08:53)
--- NOTE | 2016-06-28 09:23 | XRay Report ---
XR chest 1V portable Indication: "Arctic sun 194" Comparison: Chest x-ray 06/27/2016 Technique: Portable AP chest was performed. Findings: Haziness right lung base may reflect a component of atelectasis or dependent fluid. Chest is otherwise stable. Impression: 1. Findings as detailed 06/28/2016 9:19 AM PROCEDURE INTERPRETED AT [facility] Final Report Signed by: Dr. Juan M Caraballo
[2016-06-28] MEDS: INSULIN REGULAR DRIP 100 ML IV SCH ×2 (09:42→17:41)
[2016-06-28] MEDS ORDERED: hydrALAZINE 20 MG/1 ML VIAL IV PRN (10:02)
--- NOTE | 2016-06-28 11:31 | Pulmonology Progress Note ---
<Elton Spann - Last Filed: 06/28/16 11:31> Pulmonary - PN: Subj Interval history: Elton Spann, ANP-BC, GNP-BC, acting as scribe for Dr. Steven Lopez Mr. Nuñez is a 46-year-old white male who we saw in initial pulmonary consultation on 06/27/2016. At that time, our impressions were: Exam (Progress Note) - Constitutional Vitals: Period Temp Pulse Resp BP Sys/Elias Pulse Ox Last 24 Hr 90.9 F-91.9 F 58-89 14- 112-194/62-96 100-100 Results - Labs CBC & BMP: 06/28/16 06:45 06/28/16 07:48 <Steven Lopez - Last Filed: 06/29/16 10:20> Pulmonary - PN: Subj Interval history: 1. Acute cardiac arrest requiring resuscitation, intubation and mechanical ventilation, pressor agents. 2. Acute myocardial infarction 3. Respiratory arrest secondary to cardiac arrest. 4. History of high blood pressure 5. History of diabetes mellitus 6. Strong family history of heart disease 7. Possible aspiration. 8. Cerebral edema secondary to #1 Physical exam. Vital signs. See below Chest. Slightly coarse large airway congestion little more prominent on the left as compared to the right Heart. Regular. Abdomen. Nondistended. I do not hear any bowel sounds Extremities. Nothing to suggest deep venous thrombophlebitis Neck. Symmetrical with no meningismus. Lymphatics. No submandibular cervical supraclavicular or epitrochlear adenopathy Neurologic. Obtunded. Additional exam is impossible The remainder of the physical exam is noncontributory. Plan. 1. Continue present medicines. 2. Fiberoptic bronchoscopy in the morning if the patient remains to Exam (Progress Note) - Constitutional Vitals: Period Temp Pulse Resp BP Sys/Elias Pulse Ox Last 24 Hr 91.6 F-98.8 F 64-112 - 118-196/56-95 100-100 Results - Labs CBC & BMP: 06/29/16 00:15 06/29/16 00:15
[2016-06-28] MEDS: fentaNYL INJ 1,250 MCG in SODIUM CHLORIDE 0.9% 225 ML IV SCH ×2 (11:36→23:52)
[2016-06-28] MEDS: ISOSORBIDE MONONITRATE 30 MG TABLET PO SCH (12:01)
--- NOTE | 2016-06-28 14:29 | Cardiology Progress Note ---
<Clotilde Mujica - Last Filed: 06/28/16 14:06> Assessment and Plan (1) Coronary artery disease Status: Acute Assessment and plan: Patient underwent left heart catheterization yesterday per Dr. Molina with successful PCI placement to proximal LAD. Patient is doing well postoperatively. He is currently on the hypothermia protocol. -Continue aspirin -Continue Brilinta -Coreg 6.25 mg twice daily added -We will hold off on adding statin at this time until patient's liver enzymes stabilized. Further plan and addendum to follow per Dr. Boss. Current Visit: Yes (2) s/p cardiac arrest Status: Chronic Assessment and plan: Patient is now status post left heart catheterization with successful PCI to proximal LAD. He is currently on hypothermia protocol and sedated and intubated in the CCU. Patient has had no further arrhythmias since being admitted to [facility]. After revascularization, I feel that it is reasonable to discontinue patient's amiodarone at this time. We will continue to monitor closely in the CCU. Current Visit: Yes (3) Hypertension Status: Chronic Assessment and plan: Patient's blood pressure is suboptimally controlled. I have added a beta- rosoce and increased his hydralazine. We will further adjust his medications as needed this hospitalization. Current Visit: Yes (4) Diabetes Status: Chronic Assessment and plan: Management per hospital medicine. Current Visit: Yes (5) Cerebral edema due to anoxia Status: Acute Assessment and plan: Management per hospital medicine. Current Visit: Yes (6) Acute kidney injury Status: Acute Assessment and plan: Management per hospital medicine. Current Visit: Yes (7) Elevated liver enzymes Status: Acute Assessment and plan: Management per hospital medicine. Current Visit: Yes Cardiology - PN: Subj Interval history: Splunk Architect: None Mr. Nuñez, 46-year-old male patient was emergently transferred to [facility] after having cardiopulmonary arrest while working out at the gym. Upon arrival to [facility] patient was placed on hypothermia protocol. He underwent left heart catheterization yesterday per Dr. 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 He will have the usual medications post OR since his beta-roscoe, etc., if he can tolerate them. The patient is in the midst of his therapeutic hypothermia. Hopefully, after this is done he will wake up and is my will be clear. If the patient survives, the patient will be on antiplatelet medications to include aspirin indefinitely and Plavix or Brilinta for at least a year. Post cardiac catheterization patient was transported back to the CCU in stable condition. Patient continues to be sedated on the ventilator. Rewarming phase was started today. Per nurse's report, he will be completely rewarmed in approximately 12 hours. Right groin is soft without bleeding, hematoma and bruit. Distal pulses present. Patient has been hypertensive. We will adjust his medications. Liver enzymes and creatinine remain elevated. Creatinine 2.5. Lactic acid is 2.7. Patient has had no further arrhythmias. Patient remains on amiodarone drip at 0.5 mg/h. Further plan an addendum to follow per Dr. Boss. Exam (Progress Note) - Constitutional Vitals: Period Temp Pulse Resp BP Sys/Elias Pulse Ox Last 24 Hr 90.9 F-92.1 F 58-89 14-22 112-194/62-96 100-100 General appearance: other (Patient is sedated and intubated in the CCU.) - Head Head exam: Present: normal inspection, normocephalic, atraumatic - ENT ENT exam: Present: other (ET tube noted.) - Neck Neck exam: Present: normal inspection - Respiratory Respiratory exam: Present: other (Coarse ventilator breath sounds throughout). Absent: rales, rhonchi, stridor, wheezes - Cardiovascular Cardiovascular exam: Present: regular rate and rhythm. Absent: gallop, rubs, systolic murmur - GI/Abdominal GI/Abdominal exam: Present: hypoactive bowel sounds, soft. Absent: distended, firm, mass - Extremities Exam Extremities exam: Present: normal inspection. Absent: edema - Neurological Exam Neurological exam: Present: other (Patient is sedated on the ventilator in the CCU) - Psychiatric Psychiatric exam: Present: normal affect, normal mood - Skin Skin exam: Present: normal color, warm, dry Result/EKG - Labs CBC & BMP: 06/28/16 06:45 06/28/16 07:48 Lab Results: I have reviewed the past 24 hour labs Labs: Laboratory Results - last 24 hr 06/27/16 06/27/16 06/27/16 14:10 14:10 14:10 WBC 23.4 H RBC 4.06 Hgb 12.3 L Hct 37.4 L MCV 92.1 MCH 30 MCHC 32.9 RDW 13.2 Plt Count 294 MPV 10.5 Neut % (Auto) 94.2 H Lymph % (Auto) 1.9 L Cro[place] % (Auto) 3.2 Eos % (Auto) 0.0 Baso % (Auto) 0.1 Neut # (Auto) 22.0 H Lymph # (Auto) 0.4 L [place] # (Auto) 0.8 Eos # (Auto) 0.0 Baso # (Auto) 0.0 Total Counted 100 Immature Gran % 0.6 Nucleated RBC % 0.0 Immature Gran # 0.15 Segmented Neutrophils 94 H Band Neutrophils 1 Lymphocytes 2 L Monocytes 3 Basophils Nucleated RBCs # 0.00 Platelet Estimate Adequate Hypochromasia Microcytosis Víctor Cells Morphology Comment INR 1.3 PT Patient/Control Mix 13.8 Circ Anticoag PTT 60.9 H D ABG pH ABG pCO2 ABG pO2 ABG HCO3 ABG Total CO2 ABG O2 Saturation ABG Base Excess Sodium 131 L Potassium 6.4 H* D Chloride 97 L Carbon Dioxide 18 L Anion Gap 22.4 H BUN 42 H Creatinine 2.30 H GFR Calculation 42 BUN/Creatinine Ratio 18.00 Glucose 588 H* POC Glucose Hemoglobin A1c Calculated Osmolality 299.7 Lactic Acid Calcium 6.8 L Magnesium 1.9 Total Bilirubin AST ALT Alkaline Phosphatase Ammonia Total Protein Albumin Globulin Albumin/Globulin Ratio Urine Color Urine Appearance Urine pH Ur Specific [place] Urine Protein Urine Glucose (UA) Urine Ketones Urine Blood Urine Nitrate Urine Bilirubin Urine Urobilinogen Urine Leukocytes Urine RBC Urine WBC Ur Squamous Epith Cells Urine Mucus Ur Culture Indicated? 06/27/16 06/27/16 06/27/16 15:35 16:24 18:52 WBC RBC Hgb Hct MCV MCH MCHC RDW Plt Count MPV Neut % (Auto) Lymph % (Auto) [place] % (Auto) Eos % (Auto) Baso % (Auto) Neut # (Auto) Lymph # (Auto) [place] # (Auto) Eos # (Auto) Baso # (Auto) Total Counted Immature Gran % Nucleated RBC % Immature Gran # Segmented Neutrophils Band Neutrophils Lymphocytes Monocytes Basophils Nucleated RBCs # Platelet Estimate Hypochromasia Microcytosis [place] Cells Morphology Comment INR PT Patient/Control Mix Circ Anticoag PTT ABG pH ABG pCO2 ABG pO2 ABG HCO3 ABG Total CO2 ABG O2 Saturation ABG Base Excess Sodium 132 L 135 L Potassium 5.4 H 5.1 Chloride 98 100 Carbon Dioxide 17 L 19 L Anion Gap 22.4 H 21.1 H BUN 43 H 45 H Creatinine 2.60 H 2.70 H GFR Calculation 37 35 BUN/Creatinine Ratio 16.00 16.00 Glucose 661 H* 668 H* POC Glucose Hemoglobin A1c Calculated Osmolality 305.5 H 313.1 H Lactic Acid 6.2 H Calcium 6.5 L 6.6 L Magnesium 2.0 Total Bilirubin AST ALT Alkaline Phosphatase Ammonia Total Protein Albumin Globulin Albumin/Globulin Ratio Urine Color Urine Appearance Urine pH Ur Specific [place] Urine Protein Urine Glucose (UA) Urine Ketones Urine Blood Urine Nitrate Urine Bilirubin Urine Urobilinogen Urine Leukocytes Urine RBC Urine WBC Ur Squamous Epith Cells Urine Mucus Ur Culture Indicated? 06/27/16 06/27/16 06/27/16 19:08 20:05 20:17 WBC 18.2 H RBC 3.96 Hgb 12.0 L Hct 36.5 L MCV 92.2 MCH 30 MCHC 32.9 RDW 13.4 Plt Count 242 MPV 10.7 Neut % (Auto) 92.9 H Lymph % (Auto) 3.6 L [place] % (Auto) 2.7 Eos % (Auto) 0.1 Baso % (Auto) 0.1 Neut # (Auto) 16.9 H Lymph # (Auto) 0.7 L [place] # (Auto) 0.5 Eos # (Auto) 0.0 Baso # (Auto) 0.0 Total Counted 100 Immature Gran % 0.6 Nucleated RBC % 0.0 Immature Gran # 0.11 Segmented Neutrophils 93 H Band Neutrophils 1 Lymphocytes 5 L Monocytes 1 L Basophils Nucleated RBCs # 0.00 Platelet Estimate Adequate Hypochromasia Microcytosis Víctor Cells Morphology Comment INR PT Patient/Control Mix Circ Anticoag PTT ABG pH 7.415 ABG pCO2 22.8 L ABG pO2 322.0 H ABG HCO3 17.9 L ABG Total CO2 12.8 L ABG O2 Saturation 99.6 ABG Base Excess -8.2 L Sodium Potassium Chloride Carbon Dioxide Anion Gap BUN Creatinine GFR Calculation BUN/Creatinine Ratio Glucose 629 H* POC Glucose Hemoglobin A1c Calculated Osmolality Lactic Acid Calcium Magnesium Total Bilirubin AST ALT Alkaline Phosphatase Ammonia Total Protein Albumin Globulin Albumin/Globulin Ratio Urine Color Urine Appearance Urine pH Ur Specific [place] Urine Protein Urine Glucose (UA) Urine Ketones Urine Blood Urine Nitrate Urine Bilirubin Urine Urobilinogen Urine Leukocytes Urine RBC Urine WBC Ur Squamous Epith Cells Urine Mucus Ur Culture Indicated? 06/27/16 06/27/16 06/27/16 20:17 20:17 21:07 WBC RBC Hgb Hct MCV MCH MCHC RDW Plt Count MPV Neut % (Auto) Lymph % (Auto) [place] % (Auto) Eos % (Auto) Baso % (Auto) Neut # (Auto) Lymph # (Auto) [place] # (Auto) Eos # (Auto) Baso # (Auto) Total Counted Immature Gran % Nucleated RBC % Immature Gran # Segmented Neutrophils Band Neutrophils Lymphocytes Monocytes Basophils Nucleated RBCs # Platelet Estimate Hypochromasia Microcytosis [place] Cells Morphology Comment INR 1.2 PT Patient/Control Mix 12.4 Circ Anticoag PTT 31.8 D ABG pH ABG pCO2 ABG pO2 ABG HCO3 ABG Total CO2 ABG O2 Saturation ABG Base Excess Sodium Potassium Chloride Carbon Dioxide Anion Gap BUN Creatinine GFR Calculation BUN/Creatinine Ratio Glucose 622 H* POC Glucose Hemoglobin A1c Calculated Osmolality Lactic Acid 6.5 H Calcium Magnesium Total Bilirubin AST ALT Alkaline Phosphatase Ammonia Total Protein Albumin Globulin Albumin/Globulin Ratio Urine Color Urine Appearance Urine pH Ur Specific [place] Urine Protein Urine Glucose (UA) Urine Ketones Urine Blood Urine Nitrate Urine Bilirubin Urine Urobilinogen Urine Leukocytes Urine RBC Urine WBC Ur Squamous Epith Cells Urine Mucus Ur Culture Indicated? 06/27/16 06/27/16 06/27/16 21:07 22:11 23:01 WBC RBC Hgb Hct MCV MCH MCHC RDW Plt Count MPV Neut % (Auto) Lymph % (Auto) [place] % (Auto) Eos % (Auto) Baso % (Auto) Neut # (Auto) Lymph # (Auto) [place] # (Auto) Eos # (Auto) Baso # (Auto) Total Counted Immature Gran % Nucleated RBC % Immature Gran # Segmented Neutrophils Band Neutrophils Lymphocytes Monocytes Basophils Nucleated RBCs # Platelet Estimate Hypochromasia Microcytosis Víctor Cells Morphology Comment INR PT Patient/Control Mix Circ Anticoag PTT ABG pH ABG pCO2 ABG pO2 ABG HCO3 ABG Total CO2 ABG O2 Saturation ABG Base Excess Sodium Potassium Chloride Carbon Dioxide Anion Gap BUN Creatinine GFR Calculation BUN/Creatinine Ratio Glucose 828 H* 568 H* POC Glucose Hemoglobin A1c Calculated Osmolality Lactic Acid Calcium Magnesium Total Bilirubin AST ALT Alkaline Phosphatase Ammonia Total Protein Albumin Globulin Albumin/Globulin Ratio Urine Color Yellow Urine Appearance Slightly hazy Urine pH 5.0 Ur Specific [place] 1.028 Urine Protein Negative Urine Glucose (UA) >=500 Urine Ketones Negative Urine Blood Large Urine Nitrate Negative Urine Bilirubin Negative Urine Urobilinogen < 2.0 H Urine Leukocytes Negative Urine RBC 13 Urine WBC 5 Ur Squamous Epith Cells Occasional Urine Mucus Occasional Ur Culture Indicated? Not indicated 06/27/16 06/28/16 06/28/16 Unknown 00:50 02:00 WBC RBC Hgb Hct MCV MCH MCHC RDW Plt Count MPV Neut % (Auto) Lymph % (Auto) [place] % (Auto) Eos % (Auto) Baso % (Auto) Neut # (Auto) Lymph # (Auto) [place] # (Auto) Eos # (Auto) Baso # (Auto) Total Counted Immature Gran % Nucleated RBC % Immature Gran # Segmented Neutrophils Band Neutrophils Lymphocytes Monocytes Basophils Nucleated RBCs # Platelet Estimate Hypochromasia Microcytosis Víctor Cells Morphology Comment INR PT Patient/Control Mix Circ Anticoag PTT ABG pH ABG pCO2 ABG pO2 ABG HCO3 ABG Total CO2 ABG O2 Saturation ABG Base Excess Sodium 136 Potassium 4.2 Chloride 107 Carbon Dioxide 18 L Anion Gap 15.2 H BUN 47 H Creatinine 2.46 H GFR Calculation 39 BUN/Creatinine Ratio 19.00 Glucose 534 H* 512 H* POC Glucose Hemoglobin A1c Calculated Osmolality 306.0 H Lactic Acid Calcium 7.2 L Magnesium 2.2 Total Bilirubin AST ALT Alkaline Phosphatase Ammonia Total Protein Albumin Globulin Albumin/Globulin Ratio Urine Color Urine Appearance Urine pH Ur Specific [place] Urine Protein Urine Glucose (UA) Urine Ketones Urine Blood Urine Nitrate Urine Bilirubin Urine Urobilinogen Urine Leukocytes Urine RBC Urine WBC Ur Squamous Epith Cells Urine Mucus Ur Culture Indicated? 06/28/16 06/28/16 06/28/16 02:15 02:15 02:15 WBC 20.4 H RBC 3.89 Hgb 11.8 L Hct 34.6 L MCV 88.9 MCH 30 MCHC 34.1 RDW 13.5 Plt Count 221 MPV 10.7 Neut % (Auto) 91.5 H Lymph % (Auto) 3.5 L [place] % (Auto) 4.3 Eos % (Auto) 0.0 Baso % (Auto) 0.1 Neut # (Auto) 18.7 H Lymph # (Auto) 0.7 L [place] # (Auto) 0.9 H Eos # (Auto) 0.0 Baso # (Auto) 0.0 Total Counted 100 Immature Gran % 0.6 Nucleated RBC % 0.0 Immature Gran # 0.12 Segmented Neutrophils 92 H Band Neutrophils Lymphocytes 4 L Monocytes 3 Basophils 1.0 H Nucleated RBCs # 0.00 Platelet Estimate Normal Hypochromasia Microcytosis Víctor Cells 3+ Morphology Comment INR 1.1 PT Patient/Control Mix 12.0 Circ Anticoag PTT 30.1 ABG pH ABG pCO2 ABG pO2 ABG HCO3 ABG Total CO2 ABG O2 Saturation ABG Base Excess Sodium Potassium Chloride Carbon Dioxide Anion Gap BUN Creatinine GFR Calculation BUN/Creatinine Ratio Glucose POC Glucose Hemoglobin A1c Calculated Osmolality Lactic Acid Calcium Magnesium 2.2 Total Bilirubin AST ALT Alkaline Phosphatase Ammonia Total Protein Albumin Globulin Albumin/Globulin Ratio Urine Color Urine Appearance Urine pH Ur Specific [place] Urine Protein Urine Glucose (UA) Urine Ketones Urine Blood Urine Nitrate Urine Bilirubin Urine Urobilinogen Urine Leukocytes Urine RBC Urine WBC Ur Squamous Epith Cells Urine Mucus Ur Culture Indicated? 06/28/16 06/28/16 06/28/16 02:15 04:00 04:00 WBC RBC Hgb Hct MCV MCH MCHC RDW Plt Count MPV Neut % (Auto) Lymph % (Auto) [place] % (Auto) Eos % (Auto) Baso % (Auto) Neut # (Auto) Lymph # (Auto) [place] # (Auto) Eos # (Auto) Baso # (Auto) Total Counted Immature Gran % Nucleated RBC % Immature Gran # Segmented Neutrophils Band Neutrophils Lymphocytes Monocytes Basophils Nucleated RBCs # Platelet Estimate Hypochromasia Microcytosis Víctor Cells Morphology Comment INR PT Patient/Control Mix Circ Anticoag PTT ABG pH ABG pCO2 ABG pO2 ABG HCO3 ABG Total CO2 ABG O2 Saturation ABG Base Excess Sodium 137 Potassium 4.1 Chloride 108 H Carbon Dioxide 15 L Anion Gap 18.1 H BUN 49 H Creatinine 2.50 H GFR Calculation 38 BUN/Creatinine Ratio 19.00 Glucose 479 H POC Glucose Hemoglobin A1c 7.3 H Calculated Osmolality 306.8 H Lactic Acid 3.1 H Calcium 7.1 L Magnesium 2.1 Total Bilirubin 0.40 AST 397 H ALT 578 H Alkaline Phosphatase 46 Ammonia 28 Total Protein 5.3 L Albumin 2.9 L Globulin 2.4 Albumin/Globulin Ratio 1.2 Urine Color Urine Appearance Urine pH Ur Specific [place] Urine Protein Urine Glucose (UA) Urine Ketones Urine Blood Urine Nitrate Urine Bilirubin Urine Urobilinogen Urine Leukocytes Urine RBC Urine WBC Ur Squamous Epith Cells Urine Mucus Ur Culture Indicated? 06/28/16 06/28/16 06/28/16 04:00 05:00 06:00 WBC RBC Hgb Hct MCV MCH MCHC RDW Plt Count MPV Neut % (Auto) Lymph % (Auto) [place] % (Auto) Eos % (Auto) Baso % (Auto) Neut # (Auto) Lymph # (Auto) [place] # (Auto) Eos # (Auto) Baso # (Auto) Total Counted Immature Gran % Nucleated RBC % Immature Gran # Segmented Neutrophils Band Neutrophils Lymphocytes Monocytes Basophils Nucleated RBCs # Platelet Estimate Hypochromasia Microcytosis [place] Cells Morphology Comment INR PT Patient/Control Mix Circ Anticoag PTT ABG pH 7.497 H ABG pCO2 19.9 L* ABG pO2 356.5 H ABG HCO3 15.1 L ABG Total CO2 15.7 L ABG O2 Saturation 98.9 ABG Base Excess -6.0 L Sodium 137 Potassium 4.0 Chloride 108 H Carbon Dioxide 15 L Anion Gap 18.0 H BUN 48 H Creatinine 2.50 H GFR Calculation 39 BUN/Creatinine Ratio 19.00 Glucose 445 H 438 H POC Glucose Hemoglobin A1c Calculated Osmolality 304.8 H Lactic Acid Calcium 7.3 L Magnesium Total Bilirubin AST ALT Alkaline Phosphatase Ammonia Total Protein Albumin Globulin Albumin/Globulin Ratio Urine Color Urine Appearance Urine pH Ur Specific [place] Urine Protein Urine Glucose (UA) Urine Ketones Urine Blood Urine Nitrate Urine Bilirubin Urine Urobilinogen Urine Leukocytes Urine RBC Urine WBC Ur Squamous Epith Cells Urine Mucus Ur Culture Indicated? 06/28/16 06/28/16 06/28/16 06:45 06:45 06:45 WBC 22.8 H RBC 3.83 Hgb 11.7 L Hct 34.0 L MCV 88.8 MCH 31 MCHC 34.4 RDW 13.6 Plt Count 232 MPV 10.9 Neut % (Auto) 93.2 H Lymph % (Auto) 3.3 L [place] % (Auto) 2.9 Eos % (Auto) 0.0 Baso % (Auto) 0.1 Neut # (Auto) 21.2 H Lymph # (Auto) 0.8 L [place] # (Auto) 0.7 Eos # (Auto) 0.0 Baso # (Auto) 0.0 Total Counted 100 Immature Gran % 0.5 Nucleated RBC % 0.0 Immature Gran # 0.12 Segmented Neutrophils 93 H Band Neutrophils 1 Lymphocytes 4 L Monocytes 2 Basophils Nucleated RBCs # 0.00 Platelet Estimate Normal Hypochromasia Slight Microcytosis 1+ Víctor Cells Morphology Comment INR 1.2 PT Patient/Control Mix 12.3 Circ Anticoag PTT ABG pH ABG pCO2 ABG pO2 ABG HCO3 ABG Total CO2 ABG O2 Saturation ABG Base Excess Sodium Potassium Chloride Carbon Dioxide Anion Gap BUN Creatinine GFR Calculation BUN/Creatinine Ratio Glucose POC Glucose Hemoglobin A1c Calculated Osmolality Lactic Acid Calcium Magnesium 2.2 Total Bilirubin AST ALT Alkaline Phosphatase Ammonia Total Protein Albumin Globulin Albumin/Globulin Ratio Urine Color Urine Appearance Urine pH Ur Specific [place] Urine Protein Urine Glucose (UA) Urine Ketones Urine Blood Urine Nitrate Urine Bilirubin Urine Urobilinogen Urine Leukocytes Urine RBC Urine WBC Ur Squamous Epith Cells Urine Mucus Ur Culture Indicated? 06/28/16 06/28/16 06/28/16 06:45 07:21 07:48 WBC RBC Hgb Hct MCV MCH MCHC RDW Plt Count MPV Neut % (Auto) Lymph % (Auto) [place] % (Auto) Eos % (Auto) Baso % (Auto) Neut # (Auto) Lymph # (Auto) [place] # (Auto) Eos # (Auto) Baso # (Auto) Total Counted Immature Gran % Nucleated RBC % Immature Gran # Segmented Neutrophils Band Neutrophils Lymphocytes Monocytes Basophils Nucleated RBCs # Platelet Estimate Hypochromasia Microcytosis [place] Cells Morphology Comment INR 1.2 PT Patient/Control Mix 12.3 Circ Anticoag PTT 30.6 ABG pH ABG pCO2 ABG pO2 ABG HCO3 ABG Total CO2 ABG O2 Saturation ABG Base Excess Sodium Potassium Chloride Carbon Dioxide Anion Gap BUN Creatinine GFR Calculation BUN/Creatinine Ratio Glucose 407 H POC Glucose Hemoglobin A1c Calculated Osmolality Lactic Acid 2.7 H Calcium Magnesium Total Bilirubin AST ALT Alkaline Phosphatase Ammonia Total Protein Albumin Globulin Albumin/Globulin Ratio Urine Color Urine Appearance Urine pH Ur Specific [place] Urine Protein Urine Glucose (UA) Urine Ketones Urine Blood Urine Nitrate Urine Bilirubin Urine Urobilinogen Urine Leukocytes Urine RBC Urine WBC Ur Squamous Epith Cells Urine Mucus Ur Culture Indicated? 06/28/16 06/28/16 06/28/16 08:25 09:21 09:51 WBC RBC Hgb Hct MCV MCH MCHC RDW Plt Count MPV Neut % (Auto) Lymph % (Auto) [place] % (Auto) Eos % (Auto) Baso % (Auto) Neut # (Auto) Lymph # (Auto) [place] # (Auto) Eos # (Auto) Baso # (Auto) Total Counted Immature Gran % Nucleated RBC % Immature Gran # Segmented Neutrophils Band Neutrophils Lymphocytes Monocytes Basophils Nucleated RBCs # Platelet Estimate Hypochromasia Microcytosis Víctor Cells Morphology Comment INR PT Patient/Control Mix Circ Anticoag PTT ABG pH ABG pCO2 ABG pO2 ABG HCO3 ABG Total CO2 ABG O2 Saturation ABG Base Excess Sodium Potassium Chloride Carbon Dioxide Anion Gap BUN Creatinine GFR Calculation BUN/Creatinine Ratio Glucose POC Glucose 282 H 306 H 328 H Hemoglobin A1c Calculated Osmolality Lactic Acid Calcium Magnesium Total Bilirubin AST ALT Alkaline Phosphatase Ammonia Total Protein Albumin Globulin Albumin/Globulin Ratio Urine Color Urine Appearance Urine pH Ur Specific [place] Urine Protein Urine Glucose (UA) Urine Ketones Urine Blood Urine Nitrate Urine Bilirubin Urine Urobilinogen Urine Leukocytes Urine RBC Urine WBC Ur Squamous Epith Cells Urine Mucus Ur Culture Indicated? 06/28/16 06/28/16 06/28/16 11:14 12:25 13:28 WBC RBC Hgb Hct MCV MCH MCHC RDW Plt Count MPV Neut % (Auto) Lymph % (Auto) [place] % (Auto) Eos % (Auto) Baso % (Auto) Neut # (Auto) Lymph # (Auto) [place] # (Auto) Eos # (Auto) Baso # (Auto) Total Counted Immature Gran % Nucleated RBC % Immature Gran # Segmented Neutrophils Band Neutrophils Lymphocytes Monocytes Basophils Nucleated RBCs # Platelet Estimate Hypochromasia Microcytosis Víctor Cells Morphology Comment INR PT Patient/Control Mix Circ Anticoag PTT ABG pH ABG pCO2 ABG pO2 ABG HCO3 ABG Total CO2 ABG O2 Saturation ABG Base Excess Sodium Potassium Chloride Carbon Dioxide Anion Gap BUN Creatinine GFR Calculation BUN/Creatinine Ratio Glucose POC Glucose 291 H 252 H 251 H Hemoglobin A1c Calculated Osmolality Lactic Acid Calcium Magnesium Total Bilirubin AST ALT Alkaline Phosphatase Ammonia Total Protein Albumin Globulin Albumin/Globulin Ratio Urine Color Urine Appearance Urine pH Ur Specific [place] Urine Protein Urine Glucose (UA) Urine Ketones Urine Blood Urine Nitrate Urine Bilirubin Urine Urobilinogen Urine Leukocytes Urine RBC Urine WBC Ur Squamous Epith Cells Urine Mucus Ur Culture Indicated? Quality Measures - VTE Contraindication to Pharmacological VTE Prophylaxis: High Risk of Bleeding <Silvia Boss - Last Filed: 06/28/16 17:16> Cardiology - PN: Subj Interval history: I have personally interviewed and examined the patient, reviewed the chart and discussed medical decision-making with practitioner Guanako. I have read this note and agree with the documentation herein. His hemodynamics are good, he is now hypertensive and we will add beta-roscoe. The critical clinical issue right now is neurologic recovery, and we will evaluate this when he has completed the rewarming protocol. I am going to stop his amiodarone drip because he has not had recurrent arrhythmias and has been revascularized. Exam (Progress Note) - Constitutional Vitals: Period Temp Pulse Resp BP Sys/Elias Pulse Ox Last 24 Hr 90.9 F-94.1 F 58-89 14-22 138-194/78-96 100-100 Result/EKG - Labs CBC & BMP: 06/28/16 06:45 06/28/16 07:48 Labs: Laboratory Results - last 24 hr 06/27/16 06/27/16 06/27/16 16:24 18:52 19:08 WBC RBC Hgb Hct MCV MCH MCHC RDW Plt Count MPV Neut % (Auto) Lymph % (Auto) [place] % (Auto) Eos % (Auto) Baso % (Auto) Neut # (Auto) Lymph # (Auto) [place] # (Auto) Eos # (Auto) Baso # (Auto) Total Counted Immature Gran % Nucleated RBC % Immature Gran # Segmented Neutrophils Band Neutrophils Lymphocytes Monocytes Basophils Nucleated RBCs # Platelet Estimate Hypochromasia Microcytosis Víctor Cells Morphology Comment INR PT Patient/Control Mix Circ Anticoag PTT ABG pH 7.415 ABG pCO2 22.8 L ABG pO2 322.0 H ABG HCO3 17.9 L ABG Total CO2 12.8 L ABG O2 Saturation 99.6 ABG Base Excess -8.2 L Sodium 132 L 135 L Potassium 5.4 H 5.1 Chloride 98 100 Carbon Dioxide 17 L 19 L Anion Gap 22.4 H 21.1 H BUN 43 H 45 H Creatinine 2.60 H 2.70 H GFR Calculation 37 35 BUN/Creatinine Ratio 16.00 16.00 Glucose 661 H* 668 H* POC Glucose Hemoglobin A1c Calculated Osmolality 305.5 H 313.1 H Lactic Acid Calcium 6.5 L 6.6 L Magnesium 2.0 Total Bilirubin AST ALT Alkaline Phosphatase Ammonia Total Protein Albumin Globulin Albumin/Globulin Ratio Urine Color Urine Appearance Urine pH Ur Specific [place] Urine Protein Urine Glucose (UA) Urine Ketones Urine Blood Urine Nitrate Urine Bilirubin Urine Urobilinogen Urine Leukocytes Urine RBC Urine WBC Ur Squamous Epith Cells Urine Mucus Ur Culture Indicated? 06/27/16 06/27/16 06/27/16 20:05 20:17 20:17 WBC 18.2 H RBC 3.96 Hgb 12.0 L Hct 36.5 L MCV 92.2 MCH 30 MCHC 32.9 RDW 13.4 Plt Count 242 MPV 10.7 Neut % (Auto) 92.9 H Lymph % (Auto) 3.6 L [place] % (Auto) 2.7 Eos % (Auto) 0.1 Baso % (Auto) 0.1 Neut # (Auto) 16.9 H Lymph # (Auto) 0.7 L [place] # (Auto) 0.5 Eos # (Auto) 0.0 Baso # (Auto) 0.0 Total Counted 100 Immature Gran % 0.6 Nucleated RBC % 0.0 Immature Gran # 0.11 Segmented Neutrophils 93 H Band Neutrophils 1 Lymphocytes 5 L Monocytes 1 L Basophils Nucleated RBCs # 0.00 Platelet Estimate Adequate Hypochromasia Microcytosis Víctor Cells Morphology Comment INR 1.2 PT Patient/Control Mix 12.4 Circ Anticoag PTT 31.8 D ABG pH ABG pCO2 ABG pO2 ABG HCO3 ABG Total CO2 ABG O2 Saturation ABG Base Excess Sodium Potassium Chloride Carbon Dioxide Anion Gap BUN Creatinine GFR Calculation BUN/Creatinine Ratio Glucose 629 H* POC Glucose Hemoglobin A1c Calculated Osmolality Lactic Acid Calcium Magnesium Total Bilirubin AST ALT Alkaline Phosphatase Ammonia Total Protein Albumin Globulin Albumin/Globulin Ratio Urine Color Urine Appearance Urine pH Ur Specific [place] Urine Protein Urine Glucose (UA) Urine Ketones Urine Blood Urine Nitrate Urine Bilirubin Urine Urobilinogen Urine Leukocytes Urine RBC Urine WBC Ur Squamous Epith Cells Urine Mucus Ur Culture Indicated? 06/27/16 06/27/16 06/27/16 20:17 21:07 21:07 WBC RBC Hgb Hct MCV MCH MCHC RDW Plt Count MPV Neut % (Auto) Lymph % (Auto) Cro[place] % (Auto) Eos % (Auto) Baso % (Auto) Neut # (Auto) Lymph # (Auto) Cro[place] # (Auto) Eos # (Auto) Baso # (Auto) Total Counted Immature Gran % Nucleated RBC % Immature Gran # Segmented Neutrophils Band Neutrophils Lymphocytes Monocytes Basophils Nucleated RBCs # Platelet Estimate Hypochromasia Microcytosis [place] Cells Morphology Comment INR PT Patient/Control Mix Circ Anticoag PTT ABG pH ABG pCO2 ABG pO2 ABG HCO3 ABG Total CO2 ABG O2 Saturation ABG Base Excess Sodium Potassium Chloride Carbon Dioxide Anion Gap BUN Creatinine GFR Calculation BUN/Creatinine Ratio Glucose 622 H* POC Glucose Hemoglobin A1c Calculated Osmolality Lactic Acid 6.5 H Calcium Magnesium Total Bilirubin AST ALT Alkaline Phosphatase Ammonia Total Protein Albumin Globulin Albumin/Globulin Ratio Urine Color Yellow Urine Appearance Slightly hazy Urine pH 5.0 Ur Specific [place] 1.028 Urine Protein Negative Urine Glucose (UA) >=500 Urine Ketones Negative Urine Blood Large Urine Nitrate Negative Urine Bilirubin Negative Urine Urobilinogen < 2.0 H Urine Leukocytes Negative Urine RBC 13 Urine WBC 5 Ur Squamous Epith Cells Occasional Urine Mucus Occasional Ur Culture Indicated? Not indicated 06/27/16 06/27/16 06/27/16 22:11 23:01 Unknown WBC RBC Hgb Hct MCV MCH MCHC RDW Plt Count MPV Neut % (Auto) Lymph % (Auto) [place] % (Auto) Eos % (Auto) Baso % (Auto) Neut # (Auto) Lymph # (Auto) [place] # (Auto) Eos # (Auto) Baso # (Auto) Total Counted Immature Gran % Nucleated RBC % Immature Gran # Segmented Neutrophils Band Neutrophils Lymphocytes Monocytes Basophils Nucleated RBCs # Platelet Estimate Hypochromasia Microcytosis Víctor Cells Morphology Comment INR PT Patient/Control Mix Circ Anticoag PTT ABG pH ABG pCO2 ABG pO2 ABG HCO3 ABG Total CO2 ABG O2 Saturation ABG Base Excess Sodium Potassium Chloride Carbon Dioxide Anion Gap BUN Creatinine GFR Calculation BUN/Creatinine Ratio Glucose 828 H* 568 H* POC Glucose Hemoglobin A1c Calculated Osmolality Lactic Acid Calcium Magnesium 2.2 Total Bilirubin AST ALT Alkaline Phosphatase Ammonia Total Protein Albumin Globulin Albumin/Globulin Ratio Urine Color Urine Appearance Urine pH Ur Specific [place] Urine Protein Urine Glucose (UA) Urine Ketones Urine Blood Urine Nitrate Urine Bilirubin Urine Urobilinogen Urine Leukocytes Urine RBC Urine WBC Ur Squamous Epith Cells Urine Mucus Ur Culture Indicated? 06/28/16 06/28/16 06/28/16 00:50 02:00 02:15 WBC 20.4 H RBC 3.89 Hgb 11.8 L Hct 34.6 L MCV 88.9 MCH 30 MCHC 34.1 RDW 13.5 Plt Count 221 MPV 10.7 Neut % (Auto) 91.5 H Lymph % (Auto) 3.5 L [place] % (Auto) 4.3 Eos % (Auto) 0.0 Baso % (Auto) 0.1 Neut # (Auto) 18.7 H Lymph # (Auto) 0.7 L [place] # (Auto) 0.9 H Eos # (Auto) 0.0 Baso # (Auto) 0.0 Total Counted 100 Immature Gran % 0.6 Nucleated RBC % 0.0 Immature Gran # 0.12 Segmented Neutrophils 92 H Band Neutrophils Lymphocytes 4 L Monocytes 3 Basophils 1.0 H Nucleated RBCs # 0.00 Platelet Estimate Normal Hypochromasia Microcytosis [place] Cells 3+ Morphology Comment INR PT Patient/Control Mix Circ Anticoag PTT ABG pH ABG pCO2 ABG pO2 ABG HCO3 ABG Total CO2 ABG O2 Saturation ABG Base Excess Sodium 136 Potassium 4.2 Chloride 107 Carbon Dioxide 18 L Anion Gap 15.2 H BUN 47 H Creatinine 2.46 H GFR Calculation 39 BUN/Creatinine Ratio 19.00 Glucose 534 H* 512 H* POC Glucose Hemoglobin A1c Calculated Osmolality 306.0 H Lactic Acid Calcium 7.2 L Magnesium Total Bilirubin AST ALT Alkaline Phosphatase Ammonia Total Protein Albumin Globulin Albumin/Globulin Ratio Urine Color Urine Appearance Urine pH Ur Specific [place] Urine Protein Urine Glucose (UA) Urine Ketones Urine Blood Urine Nitrate Urine Bilirubin Urine Urobilinogen Urine Leukocytes Urine RBC Urine WBC Ur Squamous Epith Cells Urine Mucus Ur Culture Indicated? 06/28/16 06/28/16 06/28/16 02:15 02:15 02:15 WBC RBC Hgb Hct MCV MCH MCHC RDW Plt Count MPV Neut % (Auto) Lymph % (Auto) [place] % (Auto) Eos % (Auto) Baso % (Auto) Neut # (Auto) Lymph # (Auto) [place] # (Auto) Eos # (Auto) Baso # (Auto) Total Counted Immature Gran % Nucleated RBC % Immature Gran # Segmented Neutrophils Band Neutrophils Lymphocytes Monocytes Basophils Nucleated RBCs # Platelet Estimate Hypochromasia Microcytosis [place] Cells Morphology Comment INR 1.1 PT Patient/Control Mix 12.0 Circ Anticoag PTT 30.1 ABG pH ABG pCO2 ABG pO2 ABG HCO3 ABG Total CO2 ABG O2 Saturation ABG Base Excess Sodium Potassium Chloride Carbon Dioxide Anion Gap BUN Creatinine GFR Calculation BUN/Creatinine Ratio Glucose POC Glucose Hemoglobin A1c Calculated Osmolality Lactic Acid 3.1 H Calcium Magnesium 2.2 Total Bilirubin AST ALT Alkaline Phosphatase Ammonia Total Protein Albumin Globulin Albumin/Globulin Ratio Urine Color Urine Appearance Urine pH Ur Specific [place] Urine Protein Urine Glucose (UA) Urine Ketones Urine Blood Urine Nitrate Urine Bilirubin Urine Urobilinogen Urine Leukocytes Urine RBC Urine WBC Ur Squamous Epith Cells Urine Mucus Ur Culture Indicated? 06/28/16 06/28/16 06/28/16 04:00 04:00 04:00 WBC RBC Hgb Hct MCV MCH MCHC RDW Plt Count MPV Neut % (Auto) Lymph % (Auto) [place] % (Auto) Eos % (Auto) Baso % (Auto) Neut # (Auto) Lymph # (Auto) [place] # (Auto) Eos # (Auto) Baso # (Auto) Total Counted Immature Gran % Nucleated RBC % Immature Gran # Segmented Neutrophils Band Neutrophils Lymphocytes Monocytes Basophils Nucleated RBCs # Platelet Estimate Hypochromasia Microcytosis Víctor Cells Morphology Comment INR PT Patient/Control Mix Circ Anticoag PTT ABG pH 7.497 H ABG pCO2 19.9 L* ABG pO2 356.5 H ABG HCO3 15.1 L ABG Total CO2 15.7 L ABG O2 Saturation 98.9 ABG Base Excess -6.0 L Sodium 137 Potassium 4.1 Chloride 108 H Carbon Dioxide 15 L Anion Gap 18.1 H BUN 49 H Creatinine 2.50 H GFR Calculation 38 BUN/Creatinine Ratio 19.00 Glucose 479 H POC Glucose Hemoglobin A1c 7.3 H Calculated Osmolality 306.8 H Lactic Acid Calcium 7.1 L Magnesium 2.1 Total Bilirubin 0.40 AST 397 H ALT 578 H Alkaline Phosphatase 46 Ammonia 28 Total Protein 5.3 L Albumin 2.9 L Globulin 2.4 Albumin/Globulin Ratio 1.2 Urine Color Urine Appearance Urine pH Ur Specific [place] Urine Protein Urine Glucose (UA) Urine Ketones Urine Blood Urine Nitrate Urine Bilirubin Urine Urobilinogen Urine Leukocytes Urine RBC Urine WBC Ur Squamous Epith Cells Urine Mucus Ur Culture Indicated? 06/28/16 06/28/16 06/28/16 05:00 06:00 06:45 WBC RBC Hgb Hct MCV MCH MCHC RDW Plt Count MPV Neut % (Auto) Lymph % (Auto) [place] % (Auto) Eos % (Auto) Baso % (Auto) Neut # (Auto) Lymph # (Auto) [place] # (Auto) Eos # (Auto) Baso # (Auto) Total Counted Immature Gran % Nucleated RBC % Immature Gran # Segmented Neutrophils Band Neutrophils Lymphocytes Monocytes Basophils Nucleated RBCs # Platelet Estimate Hypochromasia Microcytosis Víctor Cells Morphology Comment INR 1.2 PT Patient/Control Mix 12.3 Circ Anticoag PTT ABG pH ABG pCO2 ABG pO2 ABG HCO3 ABG Total CO2 ABG O2 Saturation ABG Base Excess Sodium 137 Potassium 4.0 Chloride 108 H Carbon Dioxide 15 L Anion Gap 18.0 H BUN 48 H Creatinine 2.50 H GFR Calculation 39 BUN/Creatinine Ratio 19.00 Glucose 445 H 438 H POC Glucose Hemoglobin A1c Calculated Osmolality 304.8 H Lactic Acid Calcium 7.3 L Magnesium Total Bilirubin AST ALT Alkaline Phosphatase Ammonia Total Protein Albumin Globulin Albumin/Globulin Ratio Urine Color Urine Appearance Urine pH Ur Specific [place] Urine Protein Urine Glucose (UA) Urine Ketones Urine Blood Urine Nitrate Urine Bilirubin Urine Urobilinogen Urine Leukocytes Urine RBC Urine WBC Ur Squamous Epith Cells Urine Mucus Ur Culture Indicated? 06/28/16 06/28/16 06/28/16 06:45 06:45 06:45 WBC 22.8 H RBC 3.83 Hgb 11.7 L Hct 34.0 L MCV 88.8 MCH 31 MCHC 34.4 RDW 13.6 Plt Count 232 MPV 10.9 Neut % (Auto) 93.2 H Lymph % (Auto) 3.3 L [place] % (Auto) 2.9 Eos % (Auto) 0.0 Baso % (Auto) 0.1 Neut # (Auto) 21.2 H Lymph # (Auto) 0.8 L [place] # (Auto) 0.7 Eos # (Auto) 0.0 Baso # (Auto) 0.0 Total Counted 100 Immature Gran % 0.5 Nucleated RBC % 0.0 Immature Gran # 0.12 Segmented Neutrophils 93 H Band Neutrophils 1 Lymphocytes 4 L Monocytes 2 Basophils Nucleated RBCs # 0.00 Platelet Estimate Normal Hypochromasia Slight Microcytosis 1+ [place] Cells Morphology Comment INR PT Patient/Control Mix Circ Anticoag PTT ABG pH ABG pCO2 ABG pO2 ABG HCO3 ABG Total CO2 ABG O2 Saturation ABG Base Excess Sodium Potassium Chloride Carbon Dioxide Anion Gap BUN Creatinine GFR Calculation BUN/Creatinine Ratio Glucose POC Glucose Hemoglobin A1c Calculated Osmolality Lactic Acid 2.7 H Calcium Magnesium 2.2 Total Bilirubin AST ALT Alkaline Phosphatase Ammonia Total Protein Albumin Globulin Albumin/Globulin Ratio Urine Color Urine Appearance Urine pH Ur Specific [place] Urine Protein Urine Glucose (UA) Urine Ketones Urine Blood Urine Nitrate Urine Bilirubin Urine Urobilinogen Urine Leukocytes Urine RBC Urine WBC Ur Squamous Epith Cells Urine Mucus Ur Culture Indicated? 06/28/16 06/28/16 06/28/16 07:21 07:48 08:25 WBC RBC Hgb Hct MCV MCH MCHC RDW Plt Count MPV Neut % (Auto) Lymph % (Auto) [place] % (Auto) Eos % (Auto) Baso % (Auto) Neut # (Auto) Lymph # (Auto) [place] # (Auto) Eos # (Auto) Baso # (Auto) Total Counted Immature Gran % Nucleated RBC % Immature Gran # Segmented Neutrophils Band Neutrophils Lymphocytes Monocytes Basophils Nucleated RBCs # Platelet Estimate Hypochromasia Microcytosis Víctor Cells Morphology Comment INR 1.2 PT Patient/Control Mix 12.3 Circ Anticoag PTT 30.6 ABG pH ABG pCO2 ABG pO2 ABG HCO3 ABG Total CO2 ABG O2 Saturation ABG Base Excess Sodium Potassium Chloride Carbon Dioxide Anion Gap BUN Creatinine GFR Calculation BUN/Creatinine Ratio Glucose 407 H POC Glucose 282 H Hemoglobin A1c Calculated Osmolality Lactic Acid Calcium Magnesium Total Bilirubin AST ALT Alkaline Phosphatase Ammonia Total Protein Albumin Globulin Albumin/Globulin Ratio Urine Color Urine Appearance Urine pH Ur Specific [place] Urine Protein Urine Glucose (UA) Urine Ketones Urine Blood Urine Nitrate Urine Bilirubin Urine Urobilinogen Urine Leukocytes Urine RBC Urine WBC Ur Squamous Epith Cells Urine Mucus Ur Culture Indicated? 06/28/16 06/28/16 06/28/16 09:21 09:51 11:14 WBC RBC Hgb Hct MCV MCH MCHC RDW Plt Count MPV Neut % (Auto) Lymph % (Auto) [place] % (Auto) Eos % (Auto) Baso % (Auto) Neut # (Auto) Lymph # (Auto) [place] # (Auto) Eos # (Auto) Baso # (Auto) Total Counted Immature Gran % Nucleated RBC % Immature Gran # Segmented Neutrophils Band Neutrophils Lymphocytes Monocytes Basophils Nucleated RBCs # Platelet Estimate Hypochromasia Microcytosis [place] Cells Morphology Comment INR PT Patient/Control Mix Circ Anticoag PTT ABG pH ABG pCO2 ABG pO2 ABG HCO3 ABG Total CO2 ABG O2 Saturation ABG Base Excess Sodium Potassium Chloride Carbon Dioxide Anion Gap BUN Creatinine GFR Calculation BUN/Creatinine Ratio Glucose POC Glucose 306 H 328 H 291 H Hemoglobin A1c Calculated Osmolality Lactic Acid Calcium Magnesium Total Bilirubin AST ALT Alkaline Phosphatase Ammonia Total Protein Albumin Globulin Albumin/Globulin Ratio Urine Color Urine Appearance Urine pH Ur Specific [place] Urine Protein Urine Glucose (UA) Urine Ketones Urine Blood Urine Nitrate Urine Bilirubin Urine Urobilinogen Urine Leukocytes Urine RBC Urine WBC Ur Squamous Epith Cells Urine Mucus Ur Culture Indicated? 06/28/16 06/28/16 06/28/16 12:25 13:28 14:21 WBC RBC Hgb Hct MCV MCH MCHC RDW Plt Count MPV Neut % (Auto) Lymph % (Auto) [place] % (Auto) Eos % (Auto) Baso % (Auto) Neut # (Auto) Lymph # (Auto) [place] # (Auto) Eos # (Auto) Baso # (Auto) Total Counted Immature Gran % Nucleated RBC % Immature Gran # Segmented Neutrophils Band Neutrophils Lymphocytes Monocytes Basophils Nucleated RBCs # Platelet Estimate Hypochromasia Microcytosis [place] Cells Morphology Comment INR PT Patient/Control Mix Circ Anticoag PTT ABG pH ABG pCO2 ABG pO2 ABG HCO3 ABG Total CO2 ABG O2 Saturation ABG Base Excess Sodium Potassium Chloride Carbon Dioxide Anion Gap BUN Creatinine GFR Calculation BUN/Creatinine Ratio Glucose POC Glucose 252 H 251 H 227 H Hemoglobin A1c Calculated Osmolality Lactic Acid Calcium Magnesium Total Bilirubin AST ALT Alkaline Phosphatase Ammonia Total Protein Albumin Globulin Albumin/Globulin Ratio Urine Color Urine Appearance Urine pH Ur Specific [place] Urine Protein Urine Glucose (UA) Urine Ketones Urine Blood Urine Nitrate Urine Bilirubin Urine Urobilinogen Urine Leukocytes Urine RBC Urine WBC Ur Squamous Epith Cells Urine Mucus Ur Culture Indicated? 06/28/16 06/28/16 15:22 16:30 WBC RBC Hgb Hct MCV MCH MCHC RDW Plt Count MPV Neut % (Auto) Lymph % (Auto) [place] % (Auto) Eos % (Auto) Baso % (Auto) Neut # (Auto) Lymph # (Auto) [place] # (Auto) Eos # (Auto) Baso # (Auto) Total Counted Immature Gran % Nucleated RBC % Immature Gran # Segmented Neutrophils Band Neutrophils Lymphocytes Monocytes Basophils Nucleated RBCs # Platelet Estimate Hypochromasia Microcytosis Víctor Cells Morphology Comment INR PT Patient/Control Mix Circ Anticoag PTT ABG pH ABG pCO2 ABG pO2 ABG HCO3 ABG Total CO2 ABG O2 Saturation ABG Base Excess Sodium Potassium Chloride Carbon Dioxide Anion Gap BUN Creatinine GFR Calculation BUN/Creatinine Ratio Glucose POC Glucose 197 H 160 H Hemoglobin A1c Calculated Osmolality Lactic Acid Calcium Magnesium Total Bilirubin AST ALT Alkaline Phosphatase Ammonia Total Protein Albumin Globulin Albumin/Globulin Ratio Urine Color Urine Appearance Urine pH Ur Specific [place] Urine Protein Urine Glucose (UA) Urine Ketones Urine Blood Urine Nitrate Urine Bilirubin Urine Urobilinogen Urine Leukocytes Urine RBC Urine WBC Ur Squamous Epith Cells Urine Mucus Ur Culture Indicated?
[2016-06-28] MEDS ORDERED: hydrALAZINE 25 MG TABLET PO SCH (15:00)
[2016-06-28] MEDS: hydrALAZINE 25 MG TABLET PO SCH ×2 (15:03→20:57)
[2016-06-28] MEDS: CARVEDILOL 6.25 MG TABLET PO SCH ×2 (15:04→20:58)
--- NOTE | 2016-06-28 17:00 | Nephrology Consult Note ---
History of Present Illness Chief complaint: Acute renal failure History of present illness: Mr. Nuñez is a 46 year old male hypertension diabetes is status post a cardiac arrest at an outside workout facility. The gentleman was working out at the time of his cardiac event. The patient was airlifted to the [facility] for further care and has been on hypothermic therapy. He also underwent cardiac cath and did have stent placed. His CT scan showed evidence of cerebral edema. He has been unresponsive. Serum creatinine was noted to be 2.5 nephrology is been consulted for acute renal failure. Home Medications Medication Instructions Recorded Confirmed Type Unable To Obtain [Unable to Obtain] 06/27/16 06/27/16 History Allergies Allergy/AdvReac Type Severity Reaction Status Date / Time No Known Allergies Allergy Verified 06/27/16 06:44 Medical,Surgical,& Family Hx - Medical History Cardio: History of: Hypertension HEENT: History of: Dental Problems (missing front tooth) Endocrine: History of: Diabetes Mellitus (IDDM), Diabetes Mellitus (NIDDM) - Family History Family History: Reports;: Family Diabetes (father/brother), Family Heart Disease (father/brother), Family Hypertension (mother) - Social History Smoking Status: Unknown if ever smoked Frequency of Alcohol Use: Unknown Type of Drug Use: Unknown Exam - Vital Signs Vital signs: Period Temp Pulse Resp BP Sys/Elias Pulse Ox Last 24 Hr 90.9 F-93.6 F 58-89 14-22 135-194/77-96 100-100 - General Appearance General appearance: intubated Neck: supple Respiratory: clear Cardiology: regular rate, regular rhythm Gastrointestinal: normoactive bowel sounds, no tenderness Musculoskeletal: no clubbing Results - Labs CBC & BMP: 06/28/16 06:45 06/28/16 07:48 Assessment and Plan (1) s/p cardiac arrest Status: Acute Assessment and plan: Has undergone hypothermic therapy Current Visit: Yes (2) Cerebral edema due to anoxia Status: Acute Current Visit: Yes (3) Hypertension Status: Chronic Current Visit: Yes Qualifiers: Hypertension type: essential hypertension Qualified Code(s): I10 - Essential (primary) hypertension (4) Diabetes Status: Chronic Current Visit: Yes Qualifiers: Diabetes mellitus type: type 2
[2016-06-28] MEDS: NOREPINEPHRINE 8 MG in SODIUM CHLORIDE 0.9% 242 ML IV SCH (17:59)
[2016-06-28] MEDS: MIDAZOLAM 100 MG in SODIUM CHLORIDE 0.9% 80 ML IV SCH (18:02)
[2016-06-28] MEDS: hydrALAZINE 20 MG/1 ML VIAL IV PRN ×2 (19:06→23:01)
[2016-06-28] MEDS ORDERED: CARVEDILOL 6.25 MG TABLET PO SCH (21:00)
[2016-06-29 00:31] LABS: ABG Base Excess -4.8 MMOL/L (-2.5-2.5); ABG HCO3 20.4 MMOL/L (20-26); ABG Oxygen Saturation 97.8 % (95-100); ABG PCO2 21.8 MM HG (35-48); ABG PH 7.494 (7.35-7.45); ABG TCO2 14.7 MMOL/L (23-27)
[2016-06-29 00:47] LABS: INR 1.1; PT Patient Result 12.2 SECS; Partial Thromboplastin Time 29.7 SECS (0-40)
[2016-06-29 00:51] LABS: Basophils % 0.1 % (0.0-0.8); Hematocrit 34.3 VOL% (42.0-52.0); Hemoglobin 11.7 GM/DL (14.0-18.0); Immature Granulocytes % 1.6 %; Immature Granulocytes Absolute 0.54 #; Lymphocytes # 0.8 10*3/uL (1.4-4.0); Lymphocytes % 2.2 % (21.2-54.2); Mean Corpuscular HGB Conc 34.1 GM/DL (32-36); Mean Corpuscular Hemoglobin 30 PG (27-34); Mean Corpuscular Volume 89.1 FL (87-102); Mean Platelet Volume 10.7 FL (9.6-12.0); Monocytes # 1.7 10*3/uL (0.11-0.8); Neutrophils # 30.4 10*3/uL (1.4-7.4); Neutrophils % 91.1 % (38.7-73.9); Platelet Count 277 T/CUMM (130-400); Red Blood Count 3.85 MC/CUMM (3.8-5.5); Red Cell Distribution Width 14.3 % (9.3-17.3); White Blood Count 33.4 T/CUMM (4-12)
[2016-06-29 01:13] LABS: Albumin 2.9 G/DL (3.4-5.0); Bilirubin,Total 0.4 MG/DL (0.2-1.0); CKMB % 5.3 %; Calcium 7.4 MG/DL (8.5-10.1); Magnesium 1.9 MG/DL (1.8-2.4); Osmolality,Calculated 295.8 MOS/KG (273-304); Total Protein 5.4 G/DL (6.4-8.3)
[2016-06-29 01:14] LABS: Troponin I Only 30.3 NG/ML (0.00-0.045)
[2016-06-29] MEDS ORDERED: ACETAMINOPHEN 325 MG/10.15 ML UDCUP NG PRN (01:19)
[2016-06-29 02:49] LABS: Band Neutrophils 4 % (0-10); Lymphocytes 3 % (20-55); Platelet Estimate Normal; Segmented Neutrophils 89 % (50-85); Total Cells Counted 100
[2016-06-29] MEDS: SODIUM CHLORIDE 0.9% 1,000 ML IV SCH ×3 (03:30→17:36)
[2016-06-29] MEDS: MANNITOL 25 GM in PREMIX 1 EACH IV SCH ×4 (03:30→21:19)
[2016-06-29] MEDS: hydrALAZINE 20 MG/1 ML VIAL IV PRN (03:31)
[2016-06-29] MEDS: DEXAMETHASONE 4 MG/1 ML VIAL IV SCH ×4 (03:31→21:19)
[2016-06-29] MEDS: INSULIN REGULAR 100 UNIT/ML SUBCUT SCH ×5 (04:37→21:22)
[2016-06-29] MEDS: INSULIN REGULAR 100 UNIT/ML IV SCH ×2 (04:38→05:54)
--- NOTE | 2016-06-29 06:04 | XRay Report ---
XR chest 1V portable Indication: Intubation. Comparison: None. Technique: Portable AP chest was performed. Findings: Endotracheal tube terminates at the sternoclavicular junction. NG tube is present. This appears to extend into the stomach but is not well visualized below the hemidiaphragms. Lung parenchyma is stable haziness right lung base suggests little interval change. Impression: 1. Endotracheal tube placement as detailed. 2. No adverse interval change in chest. 06/29/2016 6:01 AM PROCEDURE INTERPRETED AT [facility] DEPARTMENT OF RADIOLOGY Final Report Signed by: Dr. Juan M Caraballo
--- NOTE | 2016-06-29 07:00 | EKG Report ---
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
[2016-06-29] MEDS: FAMOTIDINE 20 MG/2 ML VIAL IV SCH (09:24)
[2016-06-29] MEDS: CARVEDILOL 6.25 MG TABLET PO SCH ×3 (09:27→21:22)
[2016-06-29] MEDS: ASPIRIN CHEW 81 MG TABLET PO SCH (09:27)
[2016-06-29] MEDS: TICAGRELOR 90 MG TABLET PO SCH ×2 (09:27→21:20)
[2016-06-29] MEDS: hydrALAZINE 25 MG TABLET PO SCH ×3 (09:27→21:21)
[2016-06-29] MEDS: NOREPINEPHRINE 8 MG in SODIUM CHLORIDE 0.9% 242 ML IV SCH (09:28)
[2016-06-29] MEDS: ENOXAPARIN 40 MG/0.4 ML SYRINGE SUBCUT SCH (09:28)
[2016-06-29] MEDS: HEPARIN 5,000 UNIT/1 ML VIAL SUBCUT SCH ×2 (09:39→10:55)
[2016-06-29] MEDS: cefTRIAXone 1,000 MG in SODIUM CHLORIDE 0.9% 100 ML IV SCH (09:41)
[2016-06-29] MEDS: ISOSORBIDE MONONITRATE 30 MG TABLET PO SCH (09:47)
--- NOTE | 2016-06-29 10:08 | Event Note ---
In hospital therapeutic and diagnostic fiberoptic bronchoscopy. Right lower lung and left lower lung (bilateral) lavages were sent for Gram stain, bacterial culture, fungal stains and culture This 46-year-old white male had an observed cardiac arrest. He was resuscitated and this took a long time. There was a possibility of aspiration. He arrived here on mechanical ventilator. He has had a cardiac catheterization and stents in the proximal LAD. He has been treated with Arctic sun. He has stabilized somewhat and today he is evaluated with fiberoptic bronchoscopy to clear his secretions. And to look for evidence of aspiration. He is on mechanical ventilation. He has retention of secretions. His cough is ineffective. The endotracheal tube is in good position. Distal trachea and idalia were normal Right mainstem bronchus contained a tremendous amount of thick tenacious clear secretions these extended somewhat into the right upper lung and right middle lung and were copious in the right lower lung which was lavaged until clear. There was some minor erosive bronchitis in the right lower lung but no clear- cut evidence of aspiration injury was seen. I did not see any food particles. There were no endobronchial lesions to suggest cancer. Specimens were sent for the studies listed above The left mainstem bronchus was full of thick tenacious secretions that spared the left upper lung but were significantly severe in the left lower lung this area was lavaged until clear. There was underlying erosive friable bronchitis that had the appearance of an aspiration injury. I saw no bruit food particles. There were no endobronchial lesions to suggest cancer. Specimens were sent for the studies mentioned above. The patient tolerated procedure well. There were no complications. Impression. 1. Mechanical ventilation 2. Retained secretions 3. Ineffective cough 4. Left lower lung aspiration injury Plan. 1. Follow-up chest x-ray 2. Check bronchoscopy spelled
--- NOTE | 2016-06-29 10:09 | Pulmonology Progress Note ---
Exam (Progress Note) - Constitutional Vitals: Period Temp Pulse Resp BP Sys/Elias Pulse Ox Last 24 Hr 91.6 F-98.8 F 64-112 19-26 118-196/56-95 100-100 Results - Labs CBC & BMP: 06/29/16 00:15 06/29/16 00:15
--- NOTE | 2016-06-29 10:25 | Pulmonology Progress Note ---
Pulmonary - PN: Subj Interval history: This is a 46-year-old white male had acute observed cardiac arrest while exercising around 4 AM in the morning. Resuscitative measures were started immediately. I saw him in pulmonary consultation 06/27/2016. My impressions were. 1. Acute cardiac arrest requiring resuscitation, intubation and mechanical ventilation, pressor agents. 2. Acute myocardial infarction. On cardiac catheterization 06/27/2016 the patient had a proximal LAD lesion which was stented and he had a muscular bridge. 3. Respiratory arrest secondary to cardiac arrest. 4. History of high blood pressure 5. History of diabetes mellitus 6. Strong family history of heart disease 7. Possible aspiration. 8. Cerebral edema secondary to #1 06/29/2016. Earlier today I evaluated the patient with fiberoptic bronchoscopy. Had a tremendous amount of retained secretions bilaterally. These were removed. He had an aspiration injury and left lower lung. Specimens were sent for bacterial and fungal studies. This patient was treated with Arctic sun and he was now off of this. He remains obtunded. He has underlying cerebral edema and he is being treated with Decadron. I have asked for weaning protocol and physical therapy protocol concerning his mechanical ventilation. Today's chest x-ray showed a minor amount of atelectasis in the right lower lung. Patient has no positive cultures. At the present time hyperventilating him to help with cerebral edema and also to help override an abnormal type of breathing pattern. Presently on mechanical ventilation his pH is 7.49, PCO2 is 22 PO2 is 196 with a bicarb of 20.4. His creatinine has gradually fallen from 1.6-1.9 with a BUN of 38. Electrolytes are normal. White blood cell count is 33,400 with 91 segs H&H is stable at 11.7/34.3. CPK was as high as 2316. Troponin reached 30.3. Proteins and albumin are low. Physical exam. Vital signs. See below Chest. Slightly coarse large airway congestion little more prominent on the left as compared to the right Heart. Regular. Abdomen. Nondistended. I do not hear any bowel sounds Extremities. Nothing to suggest deep venous thrombophlebitis Neck. Symmetrical with no meningismus. Lymphatics. No submandibular cervical supraclavicular or epitrochlear adenopathy Neurologic. Obtunded. Additional exam is impossible The remainder of the physical exam is noncontributory. Plan. 1. Continue present medicines. 2. Fiberoptic bronchoscopy, 06/29/2016. See report. 3. 06/29/2016. Ventilator weaning protocol. Physical therapy protocol. Patient remains obtunded. Exam (Progress Note) - Constitutional Vitals: Period Temp Pulse Resp BP Sys/Elias Pulse Ox Last 24 Hr 91.6 F-98.8 F 64-112 19-26 118-196/56-95 100-100 Results - Labs CBC & BMP: 06/29/16 00:15 06/29/16 00:15
[2016-06-29] MEDS: MIDAZOLAM 100 MG in SODIUM CHLORIDE 0.9% 80 ML IV SCH (10:58)
[2016-06-29] MEDS: CISATRACURIUM 200 MG in SODIUM CHLORIDE 0.9% 100 ML IV SCH (10:58)
[2016-06-29] MEDS: MINERAL OIL/PETROLATUM OPH OINT 3.5 GM TUBE BOTH EYES SCH ×3 (10:58→22:07)
[2016-06-29] MEDS ORDERED: CARVEDILOL 12.5 MG TABLET PO SCH (11:00)
[2016-06-29] MEDS: fentaNYL INJ 1,250 MCG in SODIUM CHLORIDE 0.9% 225 ML IV SCH (11:08)
--- NOTE | 2016-06-29 11:42 | Cardiology Progress Note ---
<Clotilde Mujica - Last Filed: 06/29/16 11:25> Assessment and Plan (1) Coronary artery disease Status: Acute Assessment and plan: Patient underwent left heart catheterization yesterday per Dr. Molina with successful PCI placement to proximal LAD. Patient is doing well postoperatively. He is now completely rewarmed. Troponin is noted to be 30 this morning we will check serial cardiac biomarkers to ensure that these are in fact trending down. -Continue aspirin -Continue Brilinta -Continue beta-roscoe -We will hold off on adding statin at this time until patient's liver enzymes stabilized. Further plan and addendum to follow per Dr. Boss. Current Visit: Yes (2) s/p cardiac arrest Status: Acute Assessment and plan: Patient is now status post left heart catheterization with successful PCI to proximal LAD. He underwent hypothermia protocol. He remains obtunded and intubated in the CCU. Patient has had no further arrhythmias since being admitted to [facility]. Current Visit: Yes (3) Hypertension Status: Chronic Assessment and plan: Patient's blood pressure is much better controlled after adjusting medications yesterday. Will continue current plan of care and further adjust as needed throughout his hospital stay. Current Visit: Yes Qualifiers: Hypertension type: essential hypertension Qualified Code(s): I10 - Essential (primary) hypertension (4) Diabetes Status: Chronic Assessment and plan: Blood sugars are suboptimally controlled. I did increase patient's sliding scale insulin to the medium regimen. Will further adjust as needed. Current Visit: Yes Qualifiers: Diabetes mellitus type: type 2 (5) Cerebral edema due to anoxia Status: Acute Assessment and plan: Neurology has been consulted today. Current Visit: Yes (6) Acute kidney injury Status: Acute Assessment and plan: Nephrology is following. Current Visit: Yes (7) Elevated liver enzymes Status: Acute Assessment and plan: This is trending down. We will continue to monitor. Current Visit: Yes Cardiology - PN: Subj Interval history: [employer]: None Mr. Nuñez, 46-year-old male patient was emergently transferred to [facility] after having cardiopulmonary arrest while working out at the gym. Upon arrival to [facility] patient was placed on hypothermia protocol. He underwent left heart catheterization yesterday per Dr. Molina with successful PCI of proximal LAD. Patient was seen and examined in the CCU. He underwent hypothermia protocol. He is now completely rewarmed. He remains intubated. Nurse reports that his sedation has been held for approximately 1 hour. He remains unresponsive, pupils are nonreactive to light and he is without gag reflex. I will consult neurology this morning. Patient's head CT revealed cerebral edema. Patient is currently receiving mannitol IV. He is also being hyperventilated per pulmonary. Right groin remaines soft without hematoma, bleeding and bruit. Distal pulses present. Patient's blood pressure is much better controlled today after adjustment of his medications yesterday. Creatinine is trending down. Today it is 1.9. Nephrology is following. Liver enzymes are also trending down. Troponin is noted to be 30.3. We will order serial cardiac biomarkers to ensure that these are in fact trending down. White blood cell count is noted to be 30. This is thought to be secondary to steroid therapy. Blood, urine and sputum cultures have been negative. Patient underwent bronchoscopy this morning per Dr. Winkler. Findings were suggestive of aspiration injury. Specimens were obtained. Patient has been without any further arrhythmias this hospitalization. Vital signs are stable. Will continue to monitor closely in the CCU. Further plan and addendum to follow per Dr. Silvia Boss. Exam (Progress Note) - Constitutional Vitals: Period Temp Pulse Resp BP Sys/Elias Pulse Ox Last 24 Hr 91.7 F-98.8 F 64-112 19-26 118-196/56-95 100-100 Exam: General appearance: other (Patient is intubated in the CCU.) - Head Head exam: Present: normal inspection, normocephalic, atraumatic - ENT ENT exam: Present: other (ET tube noted.) - Neck Neck exam: Present: normal inspection - Respiratory Respiratory exam: Present: other (Coarse ventilator breath sounds throughout). Absent: rales, rhonchi, stridor, wheezes - Cardiovascular Cardiovascular exam: Present: regular rate and rhythm. Absent: gallop, rubs, systolic murmur - GI/Abdominal GI/Abdominal exam: Present: hypoactive bowel sounds, soft. Absent: distended, firm, mass - Extremities Exam Extremities exam: Present: normal inspection. Absent: edema - Neurological Exam Neurological exam: Present: other (Patient obtunded on the ventilator in the CCU ) - Psychiatric Psychiatric exam: Present: normal affect, normal mood - Skin Skin exam: Present: normal color, warm, dry Result/EKG - Labs CBC & BMP: 06/29/16 00:15 06/29/16 00:15 Lab Results: I have reviewed the past 24 hour labs Labs: Laboratory Results - last 24 hr 06/28/16 06/28/16 06/28/16 12:25 13:28 14:21 WBC RBC Hgb Hct MCV MCH MCHC RDW Plt Count MPV Neut % (Auto) Lymph % (Auto) [place] % (Auto) Eos % (Auto) Baso % (Auto) Neut # (Auto) Lymph # (Auto) [place] # (Auto) Eos # (Auto) Baso # (Auto) Total Counted Immature Gran % Nucleated RBC % Immature Gran # Segmented Neutrophils Band Neutrophils Lymphocytes Monocytes Nucleated RBCs # Platelet Estimate Pappenheimer Bodies INR PT Patient/Control Mix Circ Anticoag PTT ABG pH ABG pCO2 ABG pO2 ABG HCO3 ABG Total CO2 ABG O2 Saturation ABG Base Excess Sodium Potassium Chloride Carbon Dioxide Anion Gap BUN Creatinine GFR Calculation BUN/Creatinine Ratio Glucose POC Glucose 252 H 251 H 227 H Calculated Osmolality Calcium Phosphorus Magnesium Total Bilirubin AST ALT Alkaline Phosphatase Total Creatine Kinase CK-MB (CK-2) CK and CKMB Interp Troponin I Total Protein Albumin Globulin Albumin/Globulin Ratio 06/28/16 06/28/16 06/28/16 15:22 16:30 17:23 WBC RBC Hgb Hct MCV MCH MCHC RDW Plt Count MPV Neut % (Auto) Lymph % (Auto) [place] % (Auto) Eos % (Auto) Baso % (Auto) Neut # (Auto) Lymph # (Auto) [place] # (Auto) Eos # (Auto) Baso # (Auto) Total Counted Immature Gran % Nucleated RBC % Immature Gran # Segmented Neutrophils Band Neutrophils Lymphocytes Monocytes Nucleated RBCs # Platelet Estimate Pappenheimer Bodies INR PT Patient/Control Mix Circ Anticoag PTT ABG pH ABG pCO2 ABG pO2 ABG HCO3 ABG Total CO2 ABG O2 Saturation ABG Base Excess Sodium Potassium Chloride Carbon Dioxide Anion Gap BUN Creatinine GFR Calculation BUN/Creatinine Ratio Glucose POC Glucose 197 H 160 H 132 H Calculated Osmolality Calcium Phosphorus Magnesium Total Bilirubin AST ALT Alkaline Phosphatase Total Creatine Kinase CK-MB (CK-2) CK and CKMB Interp Troponin I Total Protein Albumin Globulin Albumin/Globulin Ratio 06/28/16 06/28/16 06/28/16 18:25 19:25 20:33 WBC RBC Hgb Hct MCV MCH MCHC RDW Plt Count MPV Neut % (Auto) Lymph % (Auto) [place] % (Auto) Eos % (Auto) Baso % (Auto) Neut # (Auto) Lymph # (Auto) [place] # (Auto) Eos # (Auto) Baso # (Auto) Total Counted Immature Gran % Nucleated RBC % Immature Gran # Segmented Neutrophils Band Neutrophils Lymphocytes Monocytes Nucleated RBCs # Platelet Estimate Pappenheimer Bodies INR PT Patient/Control Mix Circ Anticoag PTT ABG pH ABG pCO2 ABG pO2 ABG HCO3 ABG Total CO2 ABG O2 Saturation ABG Base Excess Sodium Potassium Chloride Carbon Dioxide Anion Gap BUN Creatinine GFR Calculation BUN/Creatinine Ratio Glucose POC Glucose 97 55 L 110 H Calculated Osmolality Calcium Phosphorus Magnesium Total Bilirubin AST ALT Alkaline Phosphatase Total Creatine Kinase CK-MB (CK-2) CK and CKMB Interp Troponin I Total Protein Albumin Globulin Albumin/Globulin Ratio 06/28/16 06/28/16 06/28/16 21:27 22:24 23:27 WBC RBC Hgb Hct MCV MCH MCHC RDW Plt Count MPV Neut % (Auto) Lymph % (Auto) [place] % (Auto) Eos % (Auto) Baso % (Auto) Neut # (Auto) Lymph # (Auto) [place] # (Auto) Eos # (Auto) Baso # (Auto) Total Counted Immature Gran % Nucleated RBC % Immature Gran # Segmented Neutrophils Band Neutrophils Lymphocytes Monocytes Nucleated RBCs # Platelet Estimate Pappenheimer Bodies INR PT Patient/Control Mix Circ Anticoag PTT ABG pH ABG pCO2 ABG pO2 ABG HCO3 ABG Total CO2 ABG O2 Saturation ABG Base Excess Sodium Potassium Chloride Carbon Dioxide Anion Gap BUN Creatinine GFR Calculation BUN/Creatinine Ratio Glucose POC Glucose 94 94 64 L Calculated Osmolality Calcium Phosphorus Magnesium Total Bilirubin AST ALT Alkaline Phosphatase Total Creatine Kinase CK-MB (CK-2) CK and CKMB Interp Troponin I Total Protein Albumin Globulin Albumin/Globulin Ratio 06/29/16 06/29/16 06/29/16 00:15 00:15 00:15 WBC 33.4 H D RBC 3.85 Hgb 11.7 L Hct 34.3 L MCV 89.1 MCH 30 MCHC 34.1 RDW 14.3 Plt Count 277 MPV 10.7 Neut % (Auto) 91.1 H Lymph % (Auto) 2.2 L [place] % (Auto) 5.0 Eos % (Auto) 0.0 Baso % (Auto) 0.1 Neut # (Auto) 30.4 H Lymph # (Auto) 0.8 L [place] # (Auto) 1.7 H Eos # (Auto) 0.0 Baso # (Auto) 0.0 Total Counted 100 Immature Gran % 1.6 Nucleated RBC % 0.0 Immature Gran # 0.54 Segmented Neutrophils 89 H Band Neutrophils 4 Lymphocytes 3 L Monocytes 4 Nucleated RBCs # 0.00 Platelet Estimate Normal Pappenheimer Bodies Air Conditioning Specialist INR 1.1 PT Patient/Control Mix 12.2 Circ Anticoag PTT 29.7 ABG pH ABG pCO2 ABG pO2 ABG HCO3 ABG Total CO2 ABG O2 Saturation ABG Base Excess Sodium 144 Potassium 4.0 Chloride 115 H Carbon Dioxide 18 L Anion Gap 15.0 BUN 38 H D Creatinine 1.90 H GFR Calculation 54 BUN/Creatinine Ratio 20.00 Glucose 121 H POC Glucose Calculated Osmolality 295.8 Calcium 7.4 L Phosphorus 3.0 Magnesium 1.9 Total Bilirubin 0.40 AST 254 H ALT 443 H Alkaline Phosphatase 53 Total Creatine Kinase 2210 H CK-MB (CK-2) 118.1 H CK and CKMB Interp 5.3 Troponin I 30.300 H D Total Protein 5.4 L Albumin 2.9 L Globulin 2.5 Albumin/Globulin Ratio 1.1 06/29/16 06/29/16 06/29/16 00:15 00:45 01:34 WBC RBC Hgb Hct MCV MCH MCHC RDW Plt Count MPV Neut % (Auto) Lymph % (Auto) [place] % (Auto) Eos % (Auto) Baso % (Auto) Neut # (Auto) Lymph # (Auto) [place] # (Auto) Eos # (Auto) Baso # (Auto) Total Counted Immature Gran % Nucleated RBC % Immature Gran # Segmented Neutrophils Band Neutrophils Lymphocytes Monocytes Nucleated RBCs # Platelet Estimate Pappenheimer Bodies INR PT Patient/Control Mix Circ Anticoag PTT ABG pH 7.494 H ABG pCO2 21.8 L ABG pO2 196.0 H ABG HCO3 20.4 ABG Total CO2 14.7 L ABG O2 Saturation 97.8 ABG Base Excess -4.8 L Sodium Potassium Chloride Carbon Dioxide Anion Gap BUN Creatinine GFR Calculation BUN/Creatinine Ratio Glucose POC Glucose 96 128 H Calculated Osmolality Calcium Phosphorus Magnesium Total Bilirubin AST ALT Alkaline Phosphatase Total Creatine Kinase CK-MB (CK-2) CK and CKMB Interp Troponin I Total Protein Albumin Globulin Albumin/Globulin Ratio 06/29/16 06/29/16 06/29/16 02:31 04:27 06:26 WBC RBC Hgb Hct MCV MCH MCHC RDW Plt Count MPV Neut % (Auto) Lymph % (Auto) [place] % (Auto) Eos % (Auto) Baso % (Auto) Neut # (Auto) Lymph # (Auto) [place] # (Auto) Eos # (Auto) Baso # (Auto) Total Counted Immature Gran % Nucleated RBC % Immature Gran # Segmented Neutrophils Band Neutrophils Lymphocytes Monocytes Nucleated RBCs # Platelet Estimate Pappenheimer Bodies INR PT Patient/Control Mix Circ Anticoag PTT ABG pH ABG pCO2 ABG pO2 ABG HCO3 ABG Total CO2 ABG O2 Saturation ABG Base Excess Sodium Potassium Chloride Carbon Dioxide Anion Gap BUN Creatinine GFR Calculation BUN/Creatinine Ratio Glucose POC Glucose 185 H 207 H 199 H Calculated Osmolality Calcium Phosphorus Magnesium Total Bilirubin AST ALT Alkaline Phosphatase Total Creatine Kinase CK-MB (CK-2) CK and CKMB Interp Troponin I Total Protein Albumin Globulin Albumin/Globulin Ratio 06/29/16 07:04 WBC RBC Hgb Hct MCV MCH MCHC RDW Plt Count MPV Neut % (Auto) Lymph % (Auto) [place] % (Auto) Eos % (Auto) Baso % (Auto) Neut # (Auto) Lymph # (Auto) [place] # (Auto) Eos # (Auto) Baso # (Auto) Total Counted Immature Gran % Nucleated RBC % Immature Gran # Segmented Neutrophils Band Neutrophils Lymphocytes Monocytes Nucleated RBCs # Platelet Estimate Pappenheimer Bodies INR PT Patient/Control Mix Circ Anticoag PTT ABG pH ABG pCO2 ABG pO2 ABG HCO3 ABG Total CO2 ABG O2 Saturation ABG Base Excess Sodium Potassium Chloride Carbon Dioxide Anion Gap BUN Creatinine GFR Calculation BUN/Creatinine Ratio Glucose POC Glucose 277 H Calculated Osmolality Calcium Phosphorus Magnesium Total Bilirubin AST ALT Alkaline Phosphatase Total Creatine Kinase CK-MB (CK-2) CK and CKMB Interp Troponin I Total Protein Albumin Globulin Albumin/Globulin Ratio Quality Measures - VTE Contraindication to Pharmacological VTE Prophylaxis: High Risk of Bleeding <Silvia Boss - Last Filed: 06/29/16 19:04> Cardiology - PN: Subj Interval history: I have personally interviewed and examined the patient, reviewed the chart and discussed medical decision-making with practitioner [place]. I have read this note and agree with the documentation herein. Exam (Progress Note) - Constitutional Vitals: Period Temp Pulse Resp BP Sys/Elias Pulse Ox Last 24 Hr 95.5 F-98.8 F 64-112 15-26 115-196/56-95 100-100 Result/EKG - Labs CBC & BMP: 06/29/16 00:15 06/29/16 00:15 Labs: Laboratory Results - last 24 hr 06/28/16 06/28/16 06/28/16 19:25 20:33 21:27 WBC RBC Hgb Hct MCV MCH MCHC RDW Plt Count MPV Neut % (Auto) Lymph % (Auto) [place] % (Auto) Eos % (Auto) Baso % (Auto) Neut # (Auto) Lymph # (Auto) [place] # (Auto) Eos # (Auto) Baso # (Auto) Total Counted Immature Gran % Nucleated RBC % Immature Gran # Segmented Neutrophils Band Neutrophils Lymphocytes Monocytes Nucleated RBCs # Platelet Estimate Pappenheimer Bodies INR PT Patient/Control Mix Circ Anticoag PTT ABG pH ABG pCO2 ABG pO2 ABG HCO3 ABG Total CO2 ABG O2 Saturation ABG Base Excess Sodium Potassium Chloride Carbon Dioxide Anion Gap BUN Creatinine GFR Calculation BUN/Creatinine Ratio Glucose POC Glucose 55 L 110 H 94 Calculated Osmolality Calcium Phosphorus Magnesium Total Bilirubin AST ALT Alkaline Phosphatase Total Creatine Kinase CK-MB (CK-2) CK and CKMB Interp Troponin I Total Protein Albumin Globulin Albumin/Globulin Ratio 06/28/16 06/28/16 06/29/16 22:24 23:27 00:15 WBC 33.4 H D RBC 3.85 Hgb 11.7 L Hct 34.3 L MCV 89.1 MCH 30 MCHC 34.1 RDW 14.3 Plt Count 277 MPV 10.7 Neut % (Auto) 91.1 H Lymph % (Auto) 2.2 L [place] % (Auto) 5.0 Eos % (Auto) 0.0 Baso % (Auto) 0.1 Neut # (Auto) 30.4 H Lymph # (Auto) 0.8 L [place] # (Auto) 1.7 H Eos # (Auto) 0.0 Baso # (Auto) 0.0 Total Counted 100 Immature Gran % 1.6 Nucleated RBC % 0.0 Immature Gran # 0.54 Segmented Neutrophils 89 H Band Neutrophils 4 Lymphocytes 3 L Monocytes 4 Nucleated RBCs # 0.00 Platelet Estimate Normal Pappenheimer Bodies Air Conditioning Specialist INR PT Patient/Control Mix Circ Anticoag PTT ABG pH ABG pCO2 ABG pO2 ABG HCO3 ABG Total CO2 ABG O2 Saturation ABG Base Excess Sodium Potassium Chloride Carbon Dioxide Anion Gap BUN Creatinine GFR Calculation BUN/Creatinine Ratio Glucose POC Glucose 94 64 L Calculated Osmolality Calcium Phosphorus Magnesium Total Bilirubin AST ALT Alkaline Phosphatase Total Creatine Kinase CK-MB (CK-2) CK and CKMB Interp Troponin I Total Protein Albumin Globulin Albumin/Globulin Ratio 06/29/16 06/29/16 06/29/16 00:15 00:15 00:15 WBC RBC Hgb Hct MCV MCH MCHC RDW Plt Count MPV Neut % (Auto) Lymph % (Auto) [place] % (Auto) Eos % (Auto) Baso % (Auto) Neut # (Auto) Lymph # (Auto) [place] # (Auto) Eos # (Auto) Baso # (Auto) Total Counted Immature Gran % Nucleated RBC % Immature Gran # Segmented Neutrophils Band Neutrophils Lymphocytes Monocytes Nucleated RBCs # Platelet Estimate Pappenheimer Bodies INR 1.1 PT Patient/Control Mix 12.2 Circ Anticoag PTT 29.7 ABG pH 7.494 H ABG pCO2 21.8 L ABG pO2 196.0 H ABG HCO3 20.4 ABG Total CO2 14.7 L ABG O2 Saturation 97.8 ABG Base Excess -4.8 L Sodium 144 Potassium 4.0 Chloride 115 H Carbon Dioxide 18 L Anion Gap 15.0 BUN 38 H D Creatinine 1.90 H GFR Calculation 54 BUN/Creatinine Ratio 20.00 Glucose 121 H POC Glucose Calculated Osmolality 295.8 Calcium 7.4 L Phosphorus 3.0 Magnesium 1.9 Total Bilirubin 0.40 AST 254 H ALT 443 H Alkaline Phosphatase 53 Total Creatine Kinase 2210 H CK-MB (CK-2) 118.1 H CK and CKMB Interp 5.3 Troponin I 30.300 H D Total Protein 5.4 L Albumin 2.9 L Globulin 2.5 Albumin/Globulin Ratio 1.1 06/29/16 06/29/16 06/29/16 00:45 01:34 02:31 WBC RBC Hgb Hct MCV MCH MCHC RDW Plt Count MPV Neut % (Auto) Lymph % (Auto) [place] % (Auto) Eos % (Auto) Baso % (Auto) Neut # (Auto) Lymph # (Auto) [place] # (Auto) Eos # (Auto) Baso # (Auto) Total Counted Immature Gran % Nucleated RBC % Immature Gran # Segmented Neutrophils Band Neutrophils Lymphocytes Monocytes Nucleated RBCs # Platelet Estimate Pappenheimer Bodies INR PT Patient/Control Mix Circ Anticoag PTT ABG pH ABG pCO2 ABG pO2 ABG HCO3 ABG Total CO2 ABG O2 Saturation ABG Base Excess Sodium Potassium Chloride Carbon Dioxide Anion Gap BUN Creatinine GFR Calculation BUN/Creatinine Ratio Glucose POC Glucose 96 128 H 185 H Calculated Osmolality Calcium Phosphorus Magnesium Total Bilirubin AST ALT Alkaline Phosphatase Total Creatine Kinase CK-MB (CK-2) CK and CKMB Interp Troponin I Total Protein Albumin Globulin Albumin/Globulin Ratio 06/29/16 06/29/16 06/29/16 04:27 06:26 07:04 WBC RBC Hgb Hct MCV MCH MCHC RDW Plt Count MPV Neut % (Auto) Lymph % (Auto) [place] % (Auto) Eos % (Auto) Baso % (Auto) Neut # (Auto) Lymph # (Auto) [place] # (Auto) Eos # (Auto) Baso # (Auto) Total Counted Immature Gran % Nucleated RBC % Immature Gran # Segmented Neutrophils Band Neutrophils Lymphocytes Monocytes Nucleated RBCs # Platelet Estimate Pappenheimer Bodies INR PT Patient/Control Mix Circ Anticoag PTT ABG pH ABG pCO2 ABG pO2 ABG HCO3 ABG Total CO2 ABG O2 Saturation ABG Base Excess Sodium Potassium Chloride Carbon Dioxide Anion Gap BUN Creatinine GFR Calculation BUN/Creatinine Ratio Glucose POC Glucose 207 H 199 H 277 H Calculated Osmolality Calcium Phosphorus Magnesium Total Bilirubin AST ALT Alkaline Phosphatase Total Creatine Kinase CK-MB (CK-2) CK and CKMB Interp Troponin I Total Protein Albumin Globulin Albumin/Globulin Ratio 06/29/16 06/29/16 06/29/16 12:31 12:38 15:52 WBC RBC Hgb Hct MCV MCH MCHC RDW Plt Count MPV Neut % (Auto) Lymph % (Auto) [place] % (Auto) Eos % (Auto) Baso % (Auto) Neut # (Auto) Lymph # (Auto) [place] # (Auto) Eos # (Auto) Baso # (Auto) Total Counted Immature Gran % Nucleated RBC % Immature Gran # Segmented Neutrophils Band Neutrophils Lymphocytes Monocytes Nucleated RBCs # Platelet Estimate Pappenheimer Bodies INR PT Patient/Control Mix Circ Anticoag PTT ABG pH ABG pCO2 ABG pO2 ABG HCO3 ABG Total CO2 ABG O2 Saturation ABG Base Excess Sodium Potassium Chloride Carbon Dioxide Anion Gap BUN Creatinine GFR Calculation BUN/Creatinine Ratio Glucose POC Glucose 278 H 296 H Calculated Osmolality Calcium Phosphorus Magnesium Total Bilirubin AST ALT Alkaline Phosphatase Total Creatine Kinase 3780 H D CK-MB (CK-2) 48.7 H D CK and CKMB Interp 1.3 Troponin I 31.300 H Total Protein Albumin Globulin Albumin/Globulin Ratio 06/29/16 16:54 WBC RBC Hgb Hct MCV MCH MCHC RDW Plt Count MPV Neut % (Auto) Lymph % (Auto) [place] % (Auto) Eos % (Auto) Baso % (Auto) Neut # (Auto) Lymph # (Auto) [place] # (Auto) Eos # (Auto) Baso # (Auto) Total Counted Immature Gran % Nucleated RBC % Immature Gran # Segmented Neutrophils Band Neutrophils Lymphocytes Monocytes Nucleated RBCs # Platelet Estimate Pappenheimer Bodies INR PT Patient/Control Mix Circ Anticoag PTT ABG pH ABG pCO2 ABG pO2 ABG HCO3 ABG Total CO2 ABG O2 Saturation ABG Base Excess Sodium Potassium Chloride Carbon Dioxide Anion Gap BUN Creatinine GFR Calculation BUN/Creatinine Ratio Glucose POC Glucose Calculated Osmolality Calcium Phosphorus Magnesium Total Bilirubin AST ALT Alkaline Phosphatase Total Creatine Kinase 4082 H CK-MB (CK-2) 35.1 H D CK and CKMB Interp 0.9 Troponin I 25.500 H Total Protein Albumin Globulin Albumin/Globulin Ratio
--- NOTE | 2016-06-29 13:17 | Nephrology Progress Note ---
Nephrology - PN: Subj Interval history: The patient's condition at the bedside is about the same. He is now off the cooling protocol. The patient's serum creatinine continues to trend down. Exam (PN)-Nephrology - Vital Signs Vital signs: Period Temp Pulse Resp BP Sys/Elias Pulse Ox Last 24 Hr 92.1 F-98.8 F 67-112 19-26 118-196/56-95 100-100 - General Appearance General appearance: intubated EENT: ATNC Neck: supple Respiratory: clear Cardiology: regular rate, regular rhythm Gastrointestinal: normoactive bowel sounds, no tenderness Musculoskeletal: no deformities - Lab 06/29/16 00:15 06/29/16 00:15 Most recent lab results ABG pH 7.494 (7.35-7.45) H 06/29/16 00:15 ABG pCO2 21.8 MM HG (35-48) L 06/29/16 00:15 ABG pO2 196.0 MM HG (80-95) H 06/29/16 00:15 ABG HCO3 20.4 MMOL/L (20-26) 06/29/16 00:15 ABG O2 Saturation 97.8 % (95-100) 06/29/16 00:15 Calcium 7.4 MG/DL (8.5-10.1) L 06/29/16 00:15 Phosphorus 3.0 MG/DL (2.5-4.9) 06/29/16 00:15 Magnesium 1.9 MG/DL (1.8-2.4) 06/29/16 00:15 Assessment and Plan (1) s/p cardiac arrest Status: Acute Current Visit: Yes (2) Cerebral edema due to anoxia Status: Acute Current Visit: Yes (3) Hypertension Status: Chronic Current Visit: Yes Qualifiers: Hypertension type: essential hypertension Qualified Code(s): I10 - Essential (primary) hypertension (4) Diabetes Status: Chronic Current Visit: Yes Qualifiers: Diabetes mellitus type: type 2 (5) Acute kidney injury Status: Acute Assessment and plan: This is continuing to resolve. Avoid nephrotoxic agents. Current Visit: Yes
[2016-06-29 13:35] LABS: CKMB % 1.3 %
[2016-06-29 13:37] LABS: Troponin I Only 31.3 NG/ML (0.00-0.045)
[2016-06-29] MEDS: INSULIN REGULAR DRIP 100 ML IV SCH (17:39)
[2016-06-29 17:55] LABS: CKMB % 0.9 %; Troponin I Only 25.5 NG/ML (0.00-0.045)
[2016-06-30] MEDS: SODIUM CHLORIDE 0.9% 1,000 ML IV SCH (00:13)
[2016-06-30] MEDS: INSULIN REGULAR 100 UNIT/ML SUBCUT SCH ×4 (00:13→13:16)
[2016-06-30 03:33] LABS: Basophils % 0.1 % (0.0-0.8); Hematocrit 32.8 VOL% (42.0-52.0); Hemoglobin 10.4 GM/DL (14.0-18.0); Immature Granulocytes % 1.2 %; Immature Granulocytes Absolute 0.31 #; Lymphocytes # 0.6 10*3/uL (1.4-4.0); Lymphocytes % 2.3 % (21.2-54.2); Mean Corpuscular HGB Conc 31.7 GM/DL (32-36); Mean Corpuscular Hemoglobin 31 PG (27-34); Mean Corpuscular Volume 96.2 FL (87-102); Mean Platelet Volume 10.8 FL (9.6-12.0); Monocytes # 1.1 10*3/uL (0.11-0.8); Monocytes % 4.2 % (1.7-12.7); Neutrophils # 23.7 10*3/uL (1.4-7.4); Neutrophils % 92.2 % (38.7-73.9); Platelet Count 237 T/CUMM (130-400); Red Blood Count 3.41 MC/CUMM (3.8-5.5); Red Cell Distribution Width 15.2 % (9.3-17.3); White Blood Count 25.7 T/CUMM (4-12)
[2016-06-30 03:37] LABS: ABG HCO3 21.1 MMOL/L (20-26); ABG Oxygen Saturation 99.4 % (95-100); ABG PCO2 29.2 MM HG (35-48); ABG PH 7.428 (7.35-7.45); ABG TCO2 17.4 MMOL/L (23-27)
[2016-06-30] MEDS: MANNITOL 25 GM in PREMIX 1 EACH IV SCH ×3 (03:45→16:55)
[2016-06-30] MEDS: DEXAMETHASONE 4 MG/1 ML VIAL IV SCH ×4 (03:45→21:05)
[2016-06-30 03:54] LABS: Calcium 7.3 MG/DL (8.5-10.1); Magnesium 2.3 MG/DL (1.8-2.4); Osmolality,Calculated 329.6 MOS/KG (273-304); Potassium 4.8 MMOL/L (3.5-5.1)
[2016-06-30 04:01] LABS: Bilirubin,Direct 0.1 MG/DL (0.0-0.20); Bilirubin,Indirect 0.4 MG/DL (0.0-1.0); Bilirubin,Total 0.5 MG/DL (0.2-1.0); Total Protein 5.7 G/DL (6.4-8.3)
[2016-06-30 04:12] LABS: Bilirubin,Total 0.5 MG/DL (0.2-1.0); Calcium 7.1 MG/DL (8.5-10.1); Osmolality,Calculated 329.6 MOS/KG (273-304); Phosphorous 3.4 MG/DL (2.5-4.9); Potassium 4.8 MMOL/L (3.5-5.1); Total Protein 5.6 G/DL (6.4-8.3)
[2016-06-30 06:06] LABS: Band Neutrophils 2 % (0-10); Lymphocytes 4 % (20-55); Myelocytes 2 %; Segmented Neutrophils 92 % (50-85); Total Cells Counted 100
[2016-06-30 06:07] LABS: Anisocytosis 1+; Platelet Estimate Normal
--- NOTE | 2016-06-30 08:24 | Pulmonology Progress Note ---
Pulmonary - PN: Subj Interval history: This 46-year-old man had a cardiac arrest outside the hospital that was witnessed. He had CPR and was brought here. Initial brain CT 3 days ago showed diffuse brain edema. He was put on the [place] sun and is now been taken off that is body temperatures up to 98.7. He remains unresponsive. He does have some spontaneous respirations. His pupils are relatively small but nonreactive. He has had a cardiac catheterization with findings of severe LAD disease apparently had a myocardial infarction. His chest x-ray is looked all right and is been fairly easily ventilated. This point his brain function appears poor. Continue mechanical ventilation until that declares itself. Exam (Progress Note) - Constitutional Vitals: Period Temp Pulse Resp BP Sys/Elias Pulse Ox Last 24 Hr 97.4 F-98.9 F 62-104 13-26 115-176/58-90 97-100 Exam: Pupils small but not reactive. Vital signs normal. Orotracheal tube in place. Neck supple. Chest is essentially clear equal breath sounds heart normal rate and rhythm no murmurs. Abdomen soft no masses. Extremities no clubbing cyanosis trace of edema. Results - Labs CBC & BMP: 06/30/16 03:15 06/30/16 03:15 Lab Results: I have reviewed the past 24 hour labs - Diagnostic Findings Procedure: Chest x-ray: image reviewed by me (Lungs essentially clear. ET tube in good position.) Assessment and Plan (1) s/p cardiac arrest Status: Acute Assessment and plan: Patient remains on the ventilator. ABGs look good. We will can reduce his FiO2 to 50%. Current Visit: Yes (2) Cerebral edema due to anoxia Status: Acute Assessment and plan: We will repeat brain CT need to see if there is any change. Current Visit: Yes (3) Acute kidney injury Status: Acute Assessment and plan: Creatinine slightly elevated Current Visit: Yes (4) Coronary artery disease Status: Acute Assessment and plan: Apparently had a myocardial infarction as a cause for his arrest. Cardiology following. Has had cath and LAD stent. Current Visit: Yes
[2016-06-30] MEDS: MIDAZOLAM 100 MG in SODIUM CHLORIDE 0.9% 80 ML IV SCH (09:00)
[2016-06-30] MEDS ORDERED: SODIUM CHLORIDE 0.45% 1,000 ML IV SCH (09:00)
[2016-06-30] MEDS: fentaNYL INJ 1,250 MCG in SODIUM CHLORIDE 0.9% 225 ML IV SCH (09:00)
[2016-06-30] MEDS: MINERAL OIL/PETROLATUM OPH OINT 3.5 GM TUBE BOTH EYES SCH ×3 (09:15→21:06)
--- NOTE | 2016-06-30 09:42 | CT Report ---
CT head/brain wo con INDICATION: Altered mental status/confusion The total DLP is 1025 mGy*cm. COMPARISON: Noncontrast CT head dated 06/27/2016 Technique: Serial axial tomographic images of the brain were obtained without the use of intravenous contrast. Dose reduction: This CT exam was performed using one or more of the following dose reduction techniques: Automated exposure control, automated adjustment of the mA and/or KV according to patient size, or use of iterative reconstruction technique. Findings: Again, there is diffuse effacement of the typical moreira-white matter differentiation throughout the cerebral cortex. There is also slight worsening of hypodensity throughout the deep brain including the basal ganglia, thalamus and, although nonspecific, findings are concerning for diffuse cerebral edema and/or anoxic brain injury. No definite acute intracranial hemorrhage or vascular territory infarct is identified. The basilar cisterns are effaced. There is no evidence of herniation at this time. No abnormal extra-axial fluid collections or acute blood products are identified. Partial opacification of multiple bilateral ethmoidal air cells and maxillary sinuses is noted. The included orbits and their contents appear within normal limits. The visualized osseous structures and overlying soft tissues of the skull and face demonstrate no acute abnormality. IMPRESSION: Similar findings of diffuse effacement of the sulci, lack of moreira-white matter differentiation throughout the cerebral cortex and worsening of the central deep moreira matter hypodensity concerning for anoxic brain injury. No evidence of hemorrhagic transformation, hydrocephalus or midline shift/herniation at this time. Continued close clinical follow-up is recommended. PROCEDURE INTERPRETED AT [facility] DEPARTMENT OF RADIOLOGY Final Report Signed by: Luis A Danielle
--- NOTE | 2016-06-30 09:57 | EKG Report ---
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
[2016-06-30] MEDS: FAMOTIDINE 20 MG/2 ML VIAL IV SCH (10:19)
[2016-06-30] MEDS: ISOSORBIDE MONONITRATE 30 MG TABLET PO SCH (10:22)
[2016-06-30] MEDS: CARVEDILOL 6.25 MG TABLET PO SCH (10:22)
[2016-06-30] MEDS: hydrALAZINE 25 MG TABLET PO SCH ×3 (10:22→21:05)
[2016-06-30] MEDS: TICAGRELOR 90 MG TABLET PO SCH ×2 (10:22→21:05)
[2016-06-30] MEDS: ASPIRIN CHEW 81 MG TABLET PO SCH (10:22)
[2016-06-30] MEDS: ENOXAPARIN 40 MG/0.4 ML SYRINGE SUBCUT SCH ×2 (10:23→16:56)
[2016-06-30] MEDS: cefTRIAXone 1,000 MG in SODIUM CHLORIDE 0.9% 100 ML IV SCH (10:23)
[2016-06-30 10:42] LABS: ABG Base Excess -3.3 MMOL/L (-2.5-2.5); ABG HCO3 21.7 MMOL/L (20-26); ABG Oxygen Saturation 97.1 % (95-100); ABG PCO2 31.2 MM HG (35-48); ABG PH 7.421 (7.35-7.45); ABG PO2 96.2 MM HG (80-95); ABG TCO2 18.1 MMOL/L (23-27)
[2016-06-30] MEDS: SODIUM CHLORIDE 23.4% CONC INJ 38.5 MEQ in STERILE WATER INJ 1,000 ML IV SCH ×2 (13:00→22:55)
--- NOTE | 2016-06-30 14:09 | Nephrology Progress Note ---
Nephrology - PN: Subj Interval history: Unresponsive, occasional gasping spontaneous breath. Creatinine 2.2, WBC down to 25K. Exam (PN)-Nephrology - Vital Signs Vital signs: Period Temp Pulse Resp BP Sys/Elias Pulse Ox Last 24 Hr 97.4 F-98.9 F 62-86 13-26 122-176/58-88 97-100 - General Appearance General appearance: well-developed, well-nourished, intubated, comatose EENT: ATNC, PERRL, mucous membranes dry Neck: no JVD, no thyromegaly Respiratory: no kyphosis, clear Cardiology: no murmurs, no rub Gastrointestinal: hypoactive bowel sounds, no masses Integumentary: no rash, warm and dry Neurologic: obtunded Musculoskeletal: no deformities, no erythema - Lab 06/30/16 03:15 06/30/16 03:15 Most recent lab results ABG pH 7.421 (7.35-7.45) 06/30/16 10:30 ABG pCO2 31.2 MM HG (35-48) L 06/30/16 10:30 ABG pO2 96.2 MM HG (80-95) H 06/30/16 10:30 ABG HCO3 21.7 MMOL/L (20-26) 06/30/16 10:30 ABG O2 Saturation 97.1 % (95-100) 06/30/16 10:30 Calcium 7.1 MG/DL (8.5-10.1) L 06/30/16 03:15 Phosphorus 3.4 MG/DL (2.5-4.9) 06/30/16 03:15 Magnesium 2.3 MG/DL (1.8-2.4) 06/30/16 03:15 Assessment and Plan (1) Acute kidney injury Problem details: likely due to hypotensive/ischemic ATN, improving. No indication for renal replacement therapy. Poor prognosis. Status: Acute Current Visit: Yes (2) s/p cardiac arrest Status: Acute Current Visit: Yes (3) Cerebral edema due to anoxia Status: Acute Current Visit: Yes
--- NOTE | 2016-06-30 14:35 | XRay Report ---
Exam: XR chest 1V portable Indication: Intubated Comparison study: 06/29/2016 Findings: Endotracheal tube and esophagogastric tube are in similar positions. Cardiac mediastinal silhouette is within normal limits and stable from prior. Given slight differences in technique, mild interstitial opacities in the perihilar regions and medial right lung base appear similar to prior. There is no focal consolidation, pneumothorax or pleural effusion. . Impression: No definite acute cardiopulmonary process. Stable position of endotracheal and esophagogastric tubes. PROCEDURE INTERPRETED AT [facility] DEPARTMENT OF RADIOLOGY Final Report Signed by: Luis A Danielle
--- NOTE | 2016-06-30 15:55 | Cardiology Progress Note ---
Assessment and Plan (1) s/p cardiac arrest Status: Acute Assessment and plan: He is status post hypothermia protocol, has been rewarmed. He is status post PCI to his LAD. Unfortunately, his neurologic recovery has not occurred. Overall prognosis for this is very poor. Current Visit: Yes (2) Coronary artery disease Status: Acute Assessment and plan: He is status post PCI to the LAD. He is on dual antiplatelet therapy, beta- roscoe. He is not on statin due to his acute hepatic injury from a cardiopulmonary arrest. Current Visit: Yes (3) Hypertension Status: Chronic Assessment and plan: We will advance his medications as indicated. Current Visit: Yes Qualifiers: Hypertension type: essential hypertension Qualified Code(s): I10 - Essential (primary) hypertension (4) Diabetes Status: Chronic Current Visit: Yes Qualifiers: Diabetes mellitus type: type 2 (5) Acute kidney injury Problem details: likely due to hypotensive/ischemic ATN, improving. No indication for renal replacement therapy. Poor prognosis. Status: Acute Current Visit: Yes Cardiology - PN: Subj Interval history: Overall evening is uneventful. He continues to be hemodynamically stable, in fact hypertensive. Unfortunately no significant neurologic recovery has occurred although the patient does occasionally over breathe the ventilator. Exam (Progress Note) - Constitutional Vitals: Period Temp Pulse Resp BP Sys/Elias Pulse Ox Last 24 Hr 97.3 F-99.4 F 62-98 13-26 122-191/58-88 97-100 Exam: General appearance: normal weight, no acute distress, intubated, unresponsive - Head Head exam: Present: normocephalic, atraumatic,. Absent: hematoma, laceration - Eye Eye exam: Absent: conjunctival injection, periorbital swelling, scleral icterus , laceration to eyelids Pupils: Present: MAMTA. Absent: constricted, dilated, fixed, irregular, unequal - ENT ENT exam: Present: normal exam, normal external ear exam - Neck Neck exam: Present: normal inspection. Absent: lymphadenopathy, meningismus, tenderness, thyromegaly - Respiratory Respiratory exam: Present: clear to auscultation bilaterally anteriorly, there is normal rise with ventilated breaths. Absent: accessory muscle use, chest wall tenderness - Cardiovascular Cardiovascular exam: Present: regular rate and rhythm. Absent: carotid bruit, gallop, JVD, rubs - GI/Abdominal GI/Abdominal exam: Present: normal bowel sounds. Absent: distended, firm, guarding, hernia, mass, tenderness, rebound, soft - Extremities Exam Extremities exam: Present: normal inspection, normal capillary refill. Absent: calf tenderness, edema - Back Exam Back exam: Unable to assess due to patient being on the ventilator - Neurological Exam Neurological exam: Unable to fully assess due to patient being on the ventilator. He remains unresponsive. - Psychiatric Psychiatric exam: Unable to assess due to patient being on the ventilator. Patient unresponsive. - Skin Skin exam: Present: normal color, warm, dry, intact. Absent: cyanosis, diaphoretic, rash, urticaria Result/EKG - Labs CBC & BMP: 06/30/16 03:15 06/30/16 03:15 Lab Results: I have reviewed the past 24 hour labs Labs: Laboratory Results - last 24 hr 06/29/16 06/29/16 06/29/16 15:52 16:54 20:40 WBC RBC Hgb Hct MCV MCH MCHC RDW Plt Count MPV Neut % (Auto) Lymph % (Auto) Mchenry % (Auto) Eos % (Auto) Baso % (Auto) Neut # (Auto) Lymph # (Auto) Mchenry # (Auto) Eos # (Auto) Baso # (Auto) Total Counted Immature Gran % Nucleated RBC % Immature Gran # Segmented Neutrophils Band Neutrophils Lymphocytes Myelocytes Nucleated RBCs # Platelet Estimate Anisocytosis ABG pH ABG pCO2 ABG pO2 ABG HCO3 ABG Total CO2 ABG O2 Saturation ABG Base Excess Sodium Potassium Chloride Carbon Dioxide Anion Gap BUN Creatinine GFR Calculation BUN/Creatinine Ratio Glucose POC Glucose 296 H 378 H Calculated Osmolality Calcium Phosphorus Magnesium Total Bilirubin Direct Bilirubin Indirect Bilirubin AST ALT Alkaline Phosphatase Total Creatine Kinase 4082 H CK-MB (CK-2) 35.1 H D CK and CKMB Interp 0.9 Troponin I 25.500 H Total Protein Albumin Globulin Albumin/Globulin Ratio 06/29/16 06/30/16 06/30/16 23:50 03:15 03:15 WBC RBC Hgb Hct MCV MCH MCHC RDW Plt Count MPV Neut % (Auto) Lymph % (Auto) Mchenry % (Auto) Eos % (Auto) Baso % (Auto) Neut # (Auto) Lymph # (Auto) Mchenry # (Auto) Eos # (Auto) Baso # (Auto) Total Counted Immature Gran % Nucleated RBC % Immature Gran # Segmented Neutrophils Band Neutrophils Lymphocytes Myelocytes Nucleated RBCs # Platelet Estimate Anisocytosis ABG pH ABG pCO2 ABG pO2 ABG HCO3 ABG Total CO2 ABG O2 Saturation ABG Base Excess Sodium 153 H Potassium 4.8 Chloride 122 H Carbon Dioxide 20 L Anion Gap 15.8 H BUN 48 H Creatinine 2.10 H GFR Calculation 48 BUN/Creatinine Ratio 22.00 H Glucose 357 H POC Glucose 381 H Calculated Osmolality 329.6 H Calcium 7.3 L Phosphorus Magnesium 2.3 Total Bilirubin 0.50 Direct Bilirubin 0.10 Indirect Bilirubin 0.4 AST 163 H ALT 317 H Alkaline Phosphatase 69 Total Creatine Kinase CK-MB (CK-2) CK and CKMB Interp Troponin I Total Protein 5.7 L Albumin 3.0 L Globulin Albumin/Globulin Ratio 06/30/16 06/30/16 06/30/16 03:15 03:15 03:15 WBC 25.7 H RBC 3.41 L Hgb 10.4 L Hct 32.8 L MCV 96.2 MCH 31 MCHC 31.7 L RDW 15.2 Plt Count 237 MPV 10.8 Neut % (Auto) 92.2 H Lymph % (Auto) 2.3 L Mchenry % (Auto) 4.2 Eos % (Auto) 0.0 Baso % (Auto) 0.1 Neut # (Auto) 23.7 H Lymph # (Auto) 0.6 L Mchenry # (Auto) 1.1 H Eos # (Auto) 0.0 Baso # (Auto) 0.0 Total Counted 100 Immature Gran % 1.2 Nucleated RBC % 0.0 Immature Gran # 0.31 Segmented Neutrophils 92 H Band Neutrophils 2 Lymphocytes 4 L Myelocytes 2 Nucleated RBCs # 0.00 Platelet Estimate Normal Anisocytosis 1+ ABG pH 7.428 ABG pCO2 29.2 L ABG pO2 186.0 H ABG HCO3 21.1 ABG Total CO2 17.4 L ABG O2 Saturation 99.4 ABG Base Excess -4.0 L Sodium 153 H Potassium 4.8 Chloride 122 H Carbon Dioxide 21 Anion Gap 14.8 BUN 46 H Creatinine 2.20 H GFR Calculation 45 BUN/Creatinine Ratio 20.00 Glucose 361 H POC Glucose Calculated Osmolality 329.6 H Calcium 7.1 L Phosphorus 3.4 Magnesium Total Bilirubin 0.50 Direct Bilirubin Indirect Bilirubin AST 166 H ALT 315 H Alkaline Phosphatase 62 Total Creatine Kinase CK-MB (CK-2) CK and CKMB Interp Troponin I Total Protein 5.6 L Albumin 3.0 L Globulin 2.6 Albumin/Globulin Ratio 1.1 06/30/16 06/30/16 06/30/16 03:21 07:13 10:30 WBC RBC Hgb Hct MCV MCH MCHC RDW Plt Count MPV Neut % (Auto) Lymph % (Auto) Mchenry % (Auto) Eos % (Auto) Baso % (Auto) Neut # (Auto) Lymph # (Auto) Mchenry # (Auto) Eos # (Auto) Baso # (Auto) Total Counted Immature Gran % Nucleated RBC % Immature Gran # Segmented Neutrophils Band Neutrophils Lymphocytes Myelocytes Nucleated RBCs # Platelet Estimate Anisocytosis ABG pH 7.421 ABG pCO2 31.2 L ABG pO2 96.2 H ABG HCO3 21.7 ABG Total CO2 18.1 L ABG O2 Saturation 97.1 ABG Base Excess -3.3 L Sodium Potassium Chloride Carbon Dioxide Anion Gap BUN Creatinine GFR Calculation BUN/Creatinine Ratio Glucose POC Glucose 382 H 290 H Calculated Osmolality Calcium Phosphorus Magnesium Total Bilirubin Direct Bilirubin Indirect Bilirubin AST ALT Alkaline Phosphatase Total Creatine Kinase CK-MB (CK-2) CK and CKMB Interp Troponin I Total Protein Albumin Globulin Albumin/Globulin Ratio 06/30/16 11:39 WBC RBC Hgb Hct MCV MCH MCHC RDW Plt Count MPV Neut % (Auto) Lymph % (Auto) Mchenry % (Auto) Eos % (Auto) Baso % (Auto) Neut # (Auto) Lymph # (Auto) Mchenry # (Auto) Eos # (Auto) Baso # (Auto) Total Counted Immature Gran % Nucleated RBC % Immature Gran # Segmented Neutrophils Band Neutrophils Lymphocytes Myelocytes Nucleated RBCs # Platelet Estimate Anisocytosis ABG pH ABG pCO2 ABG pO2 ABG HCO3 ABG Total CO2 ABG O2 Saturation ABG Base Excess Sodium Potassium Chloride Carbon Dioxide Anion Gap BUN Creatinine GFR Calculation BUN/Creatinine Ratio Glucose POC Glucose 317 H Calculated Osmolality Calcium Phosphorus Magnesium Total Bilirubin Direct Bilirubin Indirect Bilirubin AST ALT Alkaline Phosphatase Total Creatine Kinase CK-MB (CK-2) CK and CKMB Interp Troponin I Total Protein Albumin Globulin Albumin/Globulin Ratio - Diagnostic Findings Procedure: Chest x-ray: report reviewed by me Quality Measures - VTE Contraindication to Pharmacological VTE Prophylaxis: High Risk of Bleeding
[2016-06-30] MEDS: NOREPINEPHRINE 8 MG in SODIUM CHLORIDE 0.9% 242 ML IV SCH (16:44)
[2016-06-30] MEDS: CISATRACURIUM 200 MG in SODIUM CHLORIDE 0.9% 100 ML IV SCH (16:51)
[2016-06-30 17:20] LABS: Calcium 7.6 MG/DL (8.5-10.1); Potassium 4.8 MMOL/L (3.5-5.1)
--- NOTE | 2016-06-30 17:26 | Hospitalist Progress Note ---
Assessment and Plan - Time spent with patient Time spent with patient: Greater than 30 minutes (1) s/p cardiac arrest Status: Acute Assessment and plan: 46 year old white male s/p a witnessed cardiac arrest. Unresponsive at the scene. Resuscitated at [facility]. Intubated and transferred to [facility]. Admitted to ICU on diprovan and amiodarone. Arrived on levophed and was severely hypertensive. 5mg of Lopressor normalized BP 121/90. Patient in critical condition with guarded prognosis. Will continue mechanical ventilation , trending labs, consult cardiology, neurology and pulmonology. 06/30. Patient remains intubated. s/p PCI to LAD and hypothermia protocol. Core temp 96.6. Neurologic function has not improved. However, he does occasionally breathe over the vent. Current Visit: Yes (2) Cerebral edema due to anoxia Status: Acute Assessment and plan: Head CT showed effaced sulci, and poor moreira-white matter differentiation bilaterally. Pulmonology has been consulted to assist in hyperventilating the patient. Hypothermia protocol has been initiated. Will repeat CT. 06/30. Pulmonology has been assisting with hyperventilation. Patient is s/p hypothermia protocol. Core temp 96.6. Remains intubated. Repeat CT does not show much improvement since admission. Prognosis here is poor. Continue mannitol at 25mg IV Q8H. Consult dietitian for nutrition evaluation and TPN. Current Visit: Yes (3) Leukocytosis Status: Acute Assessment and plan: WBC 23.7. Empirically started Rocephin for broad spectrum coverage. 06/30. WBC 25.7. Brochoalveolar lavage culture positive for gram negative rods. Continue Rocephin. Current Visit: Yes (4) Electrolyte imbalance Status: Acute Assessment and plan: Na 153 K 4.8 Cl 122 BUN 46 Cr 2.20 Glu 361 Osmolality 329.9. Likely secondary to mannitol and decadron. Patient on 03/07 NS 100ml/hr. Current Visit: Yes (5) Diabetes Status: Chronic Assessment and plan: Serum Glucose 361. Switched SSI to high dose Lispro Q4H. Add Lantus 10 BID. Current Visit: Yes Qualifiers: Diabetes mellitus type: type 2 (6) Hypertension Status: Chronic Assessment and plan: Followed by cardiology. Current Visit: Yes Qualifiers: Hypertension type: essential hypertension Qualified Code(s): I10 - Essential (primary) hypertension Hospitalist: Subjective Interval history: Patient was seen and examined today. He has come off the therapeutic hypothermia with a core temp of 96.6 and remains intubated, occasionally overbreathing the ventilator. He has not yet regained any significant neurologic function. Prognosis appears poor. We have been consulted by cardiology for medical management. The patient remains on 25mg Mannitol IV and Decadron 6mg IV. Subsequently, he has fluid imbalance, hyperosmolality, hyperglycemia and eletrolytes are grossly elevated. We have switched his SSI to Novolog and added Lantus 10 BID. We are also consulting the dietitian for TPN. Case has been discussed with Dr. Lopez who will follow with an addendum. Exam - Constitutional Vitals: Period Temp Pulse Resp BP Sys/Elias Pulse Ox Last 24 Hr 97.3 F-99.4 F 62-98 13-26 122-191/58-88 97-100 General appearance: normal weight, no acute distress, other (intubated) - Head Head exam: Present: normocephalic, atraumatic. Absent: abrasion, laceration - Eye Pupils: Present: fixed. Absent: MAMTA - ENT ENT exam: Present: normal exam, normal external ear exam - Neck Neck exam: Absent: lymphadenopathy, thyromegaly - Respiratory Respiratory exam: Present: clear to auscultation bilaterally. Absent: accessory muscle use, chest wall tenderness - Cardiovascular Cardiovascular exam: Present: regular rate and rhythm. Absent: carotid bruit, gallop, JVD - GI/Abdominal GI/Abdominal exam: Present: normal bowel sounds, distended. Absent: hernia, mass, organomegaly - Extremities Exam Extremities exam: Present: normal inspection, normal capillary refill. Absent: edema - Back Exam Back exam: Present: other (Patient on mechanical ventilation; unable to assess) - Neurological Exam Neurological exam: Present: other (Patient remains unresponsive) - Skin Skin exam: Present: normal color, warm, diaphoretic, intact Results - Labs CBC & BMP: 06/30/16 03:15 06/30/16 03:15 Lab Results: I have reviewed the past 24 hour labs Quality Measures - VTE Contraindication to Pharmacological VTE Prophylaxis: High Risk of Bleeding
[2016-06-30] MEDS ORDERED: MANNITOL 25 GM in PREMIX 1 EACH IV SCH (18:00)
[2016-06-30] MEDS: INSULIN REGULAR DRIP 100 ML IV SCH (18:45)
[2016-06-30] MEDS: INSULIN LISPRO 100 UNIT/ML SUBCUT SCH ×2 (18:52→22:24)
[2016-06-30] MEDS: CARVEDILOL 12.5 MG TABLET PO SCH (21:05)
[2016-06-30] MEDS: INSULIN GLARGINE 100 UNIT/ML SUBCUT SCH (21:05)
[2016-06-30 23:34] LABS: Calcium 7.6 MG/DL (8.5-10.1); Osmolality,Calculated 332.9 MOS/KG (273-304); Potassium 4.8 MMOL/L (3.5-5.1)
[2016-07-01] MEDS: INSULIN LISPRO 100 UNIT/ML SUBCUT SCH ×6 (02:08→21:05)
[2016-07-01] MEDS: DEXAMETHASONE 4 MG/1 ML VIAL IV SCH ×3 (03:20→18:28)
[2016-07-01 04:13] LABS: ABG Base Excess -1.8 MMOL/L (-2.5-2.5); ABG HCO3 22.9 MMOL/L (20-26); ABG Oxygen Saturation 98.7 % (95-100); ABG PCO2 32.2 MM HG (35-48); ABG PH 7.435 (7.35-7.45); ABG TCO2 19.2 MMOL/L (23-27)
[2016-07-01 04:41] LABS: Immature Granulocytes % 0.6 %; Mean Corpuscular Hemoglobin 30 PG (27-34); Red Cell Distribution Width 14.9 % (9.3-17.3)
[2016-07-01 04:55] LABS: Basophils % 0.1 % (0.0-0.8); Hematocrit 33.7 VOL% (42.0-52.0); Hemoglobin 10.5 GM/DL (14.0-18.0); Lymphocytes # 0.5 10*3/uL (1.4-4.0); Lymphocytes % 3.1 % (21.2-54.2); Mean Corpuscular HGB Conc 31.2 GM/DL (32-36); Mean Corpuscular Volume 96.6 FL (87-102); Mean Platelet Volume 11.1 FL (9.6-12.0); Monocytes # 0.5 10*3/uL (0.11-0.8); Monocytes % 3.3 % (1.7-12.7); Neutrophils # 14.3 10*3/uL (1.4-7.4); Neutrophils % 92.9 % (38.7-73.9); Platelet Count 222 T/CUMM (130-400); Red Blood Count 3.49 MC/CUMM (3.8-5.5); White Blood Count 15.4 T/CUMM (4-12)
[2016-07-01 05:07] LABS: Bilirubin,Total 0.7 MG/DL (0.2-1.0); Calcium 8.3 MG/DL (8.5-10.1); Magnesium 2.9 MG/DL (1.8-2.4); Phosphorous 3.1 MG/DL (2.5-4.9); Potassium 4.7 MMOL/L (3.5-5.1); Total Protein 5.9 G/DL (6.4-8.3)
[2016-07-01 06:45] LABS: Lymphocytes 1 % (20-55); Microcytosis Slight; Platelet Estimate Adequate; Segmented Neutrophils 97 % (50-85); Total Cells Counted 100
--- NOTE | 2016-07-01 08:07 | Pulmonology Progress Note ---
Pulmonary - PN: Subj Interval history: This 46-year-old man had a cardiac arrest outside the hospital that was witnessed. He had CPR and was brought here. Initial brain CT 3 days ago showed diffuse brain edema. He was put on the [place] sun and is now been taken off that is body temperatures up to 98.7. He remains unresponsive. He does have some spontaneous respirations. His pupils are relatively small but nonreactive. He has had a cardiac catheterization with findings of severe LAD disease apparently had a myocardial infarction. His chest x-ray is looked all right and is been fairly easily ventilated. This point his brain function appears poor. Continue mechanical ventilation until that declares itself. 07/01/[address] showed diffuse edema again. No changes. Patient not responsive at all. Chest x-ray minimal infiltrate left base. Growing gram- negative perlita from bronchial washings. Patient is on Rocephin at present. Urine output good. Hypernatremia persists. May have diabetes insipidus. Nephrology following Exam (Progress Note) - Constitutional Vitals: Period Temp Pulse Resp BP Sys/Elias Pulse Ox Last 24 Hr 96.3 F-99.4 F 72-98 14-24 138-191/64-86 96-100 Exam: Pupils small but not reactive. Vital signs normal. Orotracheal tube in place. Neck supple. Chest is essentially clear equal breath sounds heart normal rate and rhythm no murmurs. Abdomen soft no masses. Extremities no clubbing cyanosis trace of edema. No change from yesterday. Results - Labs CBC & BMP: 07/01/16 04:00 07/01/16 04:15 Lab Results: I have reviewed the past 24 hour labs - Diagnostic Findings Procedure: Chest x-ray: image reviewed by me (Minimal left basilar atelectasis.) Assessment and Plan (1) s/p cardiac arrest Status: Acute Assessment and plan: Patient remains on the ventilator. ABGs look good. We will can reduce his FiO2 to 50%. 07/01/2016 apparently acute brain injury with severe brain edema. Totally unresponsive. Current Visit: Yes (2) Cerebral edema due to anoxia Status: Acute Assessment and plan: We will repeat brain CT need to see if there is any change. 07/01/[address] showed no change. Diffuse edema. Current Visit: Yes (3) Acute kidney injury Problem details: likely due to hypotensive/ischemic ATN, improving. No indication for renal replacement therapy. Poor prognosis. Status: Acute Assessment and plan: Creatinine slightly elevated 07/01/2016 renal function a little better. Current Visit: Yes (4) Coronary artery disease Status: Acute Assessment and plan: Apparently had a myocardial infarction as a cause for his arrest. Cardiology following. Has had cath and LAD stent. Current Visit: Yes (5) Acute respiratory failure Status: Acute Assessment and plan: ABGs acceptable. Continuing mechanical ventilation, no reason to change settings today. Current Visit: Yes
--- NOTE | 2016-07-01 09:01 | EKG Report ---
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
--- NOTE | 2016-07-01 09:10 | Hospitalist Progress Note ---
Assessment and Plan (1) s/p cardiac arrest Status: Acute Assessment and plan: 46 year old white male s/p a witnessed cardiac arrest. Unresponsive at the scene. Resuscitated at [facility]. Intubated and transferred to [facility]. Admitted to ICU on diprovan and amiodarone. Arrived on levophed and was severely hypertensive. 5mg of Lopressor normalized BP 121/90. Patient in critical condition with guarded prognosis. Will continue mechanical ventilation , trending labs, consult cardiology, neurology and pulmonology. 06/30. Patient remains intubated. s/p PCI to LAD and hypothermia protocol. Core temp 96.6. Neurologic function has not improved. However, he does occasionally breathe over the vent. 07/01. Patient remains intubated. No change since yesterday. Current Visit: Yes (2) Cerebral edema due to anoxia Status: Acute Assessment and plan: Head CT showed effaced sulci, and poor moreira-white matter differentiation bilaterally. Pulmonology has been consulted to assist in hyperventilating the patient. Hypothermia protocol has been initiated. Will repeat CT. 06/30. Pulmonology has been assisting with hyperventilation. Patient is s/p hypothermia protocol. Core temp 96.6. Remains intubated. Repeat CT does not show much improvement since admission. Prognosis here is poor. Continue mannitol at 25mg IV Q8H. Consult dietitian for nutrition evaluation and TPN. 07/01. No change in responsiveness since yesterday. Serum osmolality greater than 330. Holding mannitol. Current Visit: Yes (3) Leukocytosis Status: Acute Assessment and plan: WBC 23.7. Empirically started Rocephin for broad spectrum coverage. 06/30. WBC 25.7. Brochoalveolar lavage culture positive for gram negative rods. Continue Rocephin. 07/01. WBC down to 15.4. CXR reveals min infiltrate in left lung base. Continue IV Rocephin. Current Visit: Yes (4) Electrolyte imbalance Status: Acute Assessment and plan: Na 153 K 4.8 Cl 122 BUN 46 Cr 2.20 Glu 361 Osmolality 329.9. Likely secondary to mannitol and decadron. Patient on 03/07 NS 100ml/hr. 07/01. Remains grossly elevated. Hold mannitol. Nephrology following. Current Visit: Yes (5) Diabetes Status: Chronic Assessment and plan: Serum Glucose 361. Switched SSI to high dose Lispro Q4H. Add Lantus 10 BID. Current Visit: Yes Qualifiers: Diabetes mellitus type: type 2 (6) Hypertension Status: Chronic Assessment and plan: Followed by cardiology. 07/01. BP down to 145/68 on exam. Cardiology following. Current Visit: Yes Qualifiers: Hypertension type: essential hypertension Qualified Code(s): I10 - Essential (primary) hypertension Hospitalist: Subjective Interval history: Patient seen and examined today. Remains intubated and nonresponsive. Electrolytes remain grossly elevated and serum osmolality is 331.0. We are holding mannitol at the present and will appreciate the assistance of neurology. CXR on today revealed minimal infiltrate of the left lung base. Bronchial lavage culture grew gram negative rods. Patient remains on IV Rocephin. Pulmonolgy, cardiology and nephrology are following. No acute events reported overnight. Exam - Constitutional Vitals: Period Temp Pulse Resp BP Sys/Elias Pulse Ox Last 24 Hr 96.3 F-99.4 F 72-98 14-24 138-191/64-86 96-100 Exam: General appearance: normal weight, no acute distress, intubated, diaphoretic - Head Head exam: Present: normocephalic, atraumatic - Eye Eye exam: Present: EOMI. Absent: conjunctival injection, nystagmus Pupils: Present: MAMTA, normal accommodation - ENT ENT exam: Present: normal exam, normal external ear exam - Neck Neck exam: Present: normal inspection. Absent: lymphadenopathy, tenderness, thyromegaly - Respiratory Respiratory exam: Present: clear to auscultation bilaterally. Absent: rales, rhonchi, wheezes - Cardiovascular Cardiovascular exam: Present: regular rate and rhythm. Absent: carotid bruit, gallop, rubs - GI/Abdominal GI/Abdominal exam: Present: normal bowel sounds. Absent: ascites, distended, mass - Extremities Exam Extremities exam: Present: normal inspection, normal capillary refill. Absent: edema - Back Exam Back exam: Unable to assess. Patient intubated and remains unresponsive. - Neurological Exam Neurological exam: Unable to assess. Patient intubated and remains unresponsive. - Psychiatric Psychiatric exam: Present: normal affect, normal mood - Skin Skin exam: Present: normal color, warm, dry Results - Labs CBC & BMP: 07/01/16 04:00 07/01/16 04:15 Lab Results: I have reviewed the past 24 hour labs - Diagnostic Findings Procedure: Chest x-ray: image reviewed by me (min infiltrate in left lower lung) Quality Measures - VTE Contraindication to Pharmacological VTE Prophylaxis: High Risk of Bleeding
[2016-07-01] MEDS: FAMOTIDINE 20 MG/2 ML VIAL IV SCH (09:35)
[2016-07-01] MEDS: cefTRIAXone 1,000 MG in SODIUM CHLORIDE 0.9% 100 ML IV SCH (09:37)
[2016-07-01] MEDS: hydrALAZINE 25 MG TABLET PO SCH ×2 (09:38→14:01)
[2016-07-01] MEDS: CARVEDILOL 12.5 MG TABLET PO SCH ×2 (09:38→21:05)
[2016-07-01] MEDS: ISOSORBIDE MONONITRATE 30 MG TABLET PO SCH (09:38)
[2016-07-01] MEDS: TICAGRELOR 90 MG TABLET PO SCH ×2 (09:38→21:05)
[2016-07-01] MEDS: ASPIRIN CHEW 81 MG TABLET PO SCH (09:38)
[2016-07-01] MEDS: SODIUM CHLORIDE 23.4% CONC INJ 38.5 MEQ in STERILE WATER INJ 1,000 ML IV SCH ×3 (09:46→20:55)
[2016-07-01] MEDS: MINERAL OIL/PETROLATUM OPH OINT 3.5 GM TUBE BOTH EYES SCH ×3 (09:53→21:28)
[2016-07-01] MEDS: INSULIN GLARGINE 100 UNIT/ML SUBCUT SCH ×2 (09:58→21:05)
[2016-07-01] MEDS ORDERED: LEVOFLOXACIN INJ 500 MG in PREMIX 1 EACH IV SCH (11:00)
--- NOTE | 2016-07-01 11:52 | Nephrology Progress Note ---
Nephrology - PN: Subj Interval history: Worsening anoxic brain by CT and GCS scale. Creatinine improved to 1.6 from 1.9 yesterday. Mannitol stopped due to worsening hypernatremia to 157. Premorbid. Not overbreathing the vent as he was yesterday. Exam (PN)-Nephrology - Vital Signs Vital signs: Period Temp Pulse Resp BP Sys/Elias Pulse Ox Last 24 Hr 95.7 F-98.7 F 72-87 14-24 127-191/64-91 92-100 - General Appearance General appearance: sedated on ventilator, intubated EENT: ATNC, PERRL, mucous membranes moist Neck: no JVD, no thyromegaly Respiratory: no kyphosis, clear Cardiology: no murmurs, no rub Gastrointestinal: normoactive bowel sounds, no masses Integumentary: no rash, warm and dry Neurologic: obtunded Musculoskeletal: no deformities, no erythema - Lab 07/01/16 04:00 07/01/16 04:15 Most recent lab results ABG pH 7.435 (7.35-7.45) 07/01/16 04:00 ABG pCO2 32.2 MM HG (35-48) L 07/01/16 04:00 ABG pO2 143.0 MM HG (80-95) H 07/01/16 04:00 ABG HCO3 22.9 MMOL/L (20-26) 07/01/16 04:00 ABG O2 Saturation 98.7 % (95-100) 07/01/16 04:00 Calcium 8.3 MG/DL (8.5-10.1) L 07/01/16 04:15 Phosphorus 3.1 MG/DL (2.5-4.9) 07/01/16 04:15 Magnesium 2.9 MG/DL (1.8-2.4) H 07/01/16 04:15 Assessment and Plan (1) Acute kidney injury Problem details: likely due to hypotensive/ischemic ATN, improving. No indication for renal replacement therapy. Premorbid. Status: Acute Current Visit: Yes (2) s/p cardiac arrest Status: Acute Current Visit: Yes (3) Cerebral edema due to anoxia Status: Acute Assessment and plan: In my opinion, resuscitation would be futile at this point. He should be a DNR. Current Visit: Yes
[2016-07-01] MEDS ORDERED: SODIUM CHLORIDE 0.45% 500 ML IV ONE (12:50)
[2016-07-01] MEDS: NOREPINEPHRINE 4 MG in SODIUM CHLORIDE 0.9% 246 ML IV SCH ×4 (13:07→22:22)
[2016-07-01] MEDS ORDERED: SODIUM CHLORIDE 0.9% 1,000 ML IV ONE (13:29)
[2016-07-01] MEDS ORDERED: NOREPINEPHRINE 4 MG/4 ML VIAL IV ONE (13:31)
[2016-07-01] MEDS: ENOXAPARIN 40 MG/0.4 ML SYRINGE SUBCUT SCH (15:05)
--- NOTE | 2016-07-01 15:38 | XRay Report ---
Exam: XR chest 1V portable Indication: Intubated Comparison study: 06/30/2016 Findings: Endotracheal tube and esophagogastric tube are in similar positions as compared to prior. Cardiac silhouette and mediastinal contours appear stable from prior. Minimal perihilar and basilar interstitial opacities are noted. There is no focal consolidation, pneumothorax or pleural effusion identified. Impression: Stable position of endotracheal and esophagogastric tubes. Minimal perihilar and basilar atelectasis is suspected. Otherwise, no significant change. PROCEDURE INTERPRETED AT [facility] DEPARTMENT OF RADIOLOGY Final Report Signed by: Luis A Danielle
--- NOTE | 2016-07-01 17:35 | Cardiology Progress Note ---
Assessment and Plan (1) s/p cardiac arrest Status: Acute Assessment and plan: He is status post hypothermia protocol, has been rewarmed. He is status post PCI to his LAD. Unfortunately, his neurologic recovery has not occurred. Overall prognosis for this is very poor. Current Visit: Yes (2) Coronary artery disease Status: Acute Assessment and plan: He is status post PCI to the LAD. He is on dual antiplatelet therapy, beta- roscoe. He is not on statin due to his acute hepatic injury from a cardiopulmonary arrest. Current Visit: Yes (3) Hypertension Status: Chronic Assessment and plan: See HPI. He is now hypotensive. Current Visit: Yes Qualifiers: Hypertension type: essential hypertension Qualified Code(s): I10 - Essential (primary) hypertension (4) Diabetes Status: Chronic Current Visit: Yes Qualifiers: Diabetes mellitus type: type 2 (5) Acute kidney injury Problem details: likely due to hypotensive/ischemic ATN, improving. No indication for renal replacement therapy. Premorbid. Status: Acute Current Visit: Yes Cardiology - PN: Subj Interval history: The patient has been seen multiple times today, I have had multiple discussions with the patient's family members as well as Dr. Lopez regarding this patient. This is a 46-year-old white male who was admitted to the hospital status post V. fib arrest while working out at the gym. On-site bystander CPR was initiated , the patient was resuscitated and transferred to our hospital. Hypothermia protocol was initiated and he was taken to [facility] where he underwent PCI with stenting to a 99% occluded proximal LAD. His hemodynamics improved, and he eventually became hypertensive. He has not demonstrated any significant neurologic recovery. Today he has become hypotensive, etiology is unclear. It may be related to his medications. Pressors have been started. There was some consideration by the family for no further resuscitative measures but they are not clear how they would like to proceed at this time. I did discuss with the family that he is already intubated, and not exactly a candidate for any kind of further invasive or surgical treatment. We will add pressors as indicated, but if he is to require increasing pressors without any response to therapy this would be an indicator that we are out of options and may need to stop any further efforts. They are going to discuss this some more with family and we can readdress this tomorrow. I am stopping his hydralazine, Imdur. The Coreg will be held unless he becomes hypertensive. Exam (Progress Note) - Constitutional Vitals: Period Temp Pulse Resp BP Sys/Elias Pulse Ox Last 24 Hr 95.7 F-97.9 F 72-117 15-24 94-189/47-91 92-100 Exam: General appearance: normal weight, no acute distress, intubated, unresponsive - Head Head exam: Present: normocephalic, atraumatic,. Absent: hematoma, laceration - Eye Eye exam: Absent: conjunctival injection, periorbital swelling, scleral icterus , laceration to eyelids Pupils: Present: MAMTA. Absent: constricted, dilated, fixed, irregular, unequal - ENT ENT exam: Present: normal exam, normal external ear exam - Neck Neck exam: Present: normal inspection. Absent: lymphadenopathy, meningismus, tenderness, thyromegaly - Respiratory Respiratory exam: Present: clear to auscultation bilaterally anteriorly, there is normal rise with ventilated breaths. Absent: accessory muscle use, chest wall tenderness - Cardiovascular Cardiovascular exam: Present: regular rate and rhythm. Absent: carotid bruit, gallop, JVD, rubs - GI/Abdominal GI/Abdominal exam: Present: normal bowel sounds. Absent: distended, firm, guarding, hernia, mass, tenderness, rebound, soft - Extremities Exam Extremities exam: Present: normal inspection, normal capillary refill. Absent: calf tenderness, edema - Back Exam Back exam: Unable to assess due to patient being on the ventilator - Neurological Exam Neurological exam: Unable to fully assess due to patient being on the ventilator. He remains unresponsive. - Psychiatric Psychiatric exam: Unable to assess due to patient being on the ventilator. Patient unresponsive. - Skin Skin exam: Present: normal color, warm, dry, intact. Absent: cyanosis, diaphoretic, rash, urticaria Result/EKG - Labs CBC & BMP: 07/01/16 04:00 07/01/16 04:15 Lab Results: I have reviewed the past 24 hour labs Labs: Laboratory Results - last 24 hr 06/30/16 06/30/16 06/30/16 20:00 22:14 22:50 WBC RBC Hgb Hct MCV MCH MCHC RDW Plt Count MPV Neut % (Auto) Lymph % (Auto) [place] % (Auto) Eos % (Auto) Baso % (Auto) Neut # (Auto) Lymph # (Auto) [place] # (Auto) Eos # (Auto) Baso # (Auto) Total Counted Immature Gran % Nucleated RBC % Immature Gran # Segmented Neutrophils Lymphocytes Monocytes Nucleated RBCs # Platelet Estimate Microcytosis ABG pH ABG pCO2 ABG pO2 ABG HCO3 ABG Total CO2 ABG O2 Saturation ABG Base Excess Sodium 158 H Potassium 4.8 Chloride 126 H Carbon Dioxide 24 Anion Gap 12.8 BUN 45 H Creatinine 1.80 H GFR Calculation 58 BUN/Creatinine Ratio 25.00 H Glucose 255 H POC Glucose 230 H 224 H Calculated Osmolality 332.9 H Calcium 7.6 L Phosphorus Magnesium Total Bilirubin AST ALT Alkaline Phosphatase Total Protein Albumin Globulin Albumin/Globulin Ratio 07/01/16 07/01/16 07/01/16 00:11 02:05 04:00 WBC 15.4 H D RBC 3.49 L Hgb 10.5 L Hct 33.7 L MCV 96.6 MCH 30 MCHC 31.2 L RDW 14.9 Plt Count 222 MPV 11.1 Neut % (Auto) 92.9 H Lymph % (Auto) 3.1 L [place] % (Auto) 3.3 Eos % (Auto) 0.0 Baso % (Auto) 0.1 Neut # (Auto) 14.3 H Lymph # (Auto) 0.5 L [place] # (Auto) 0.5 Eos # (Auto) 0.0 Baso # (Auto) 0.0 Total Counted 100 Immature Gran % 0.6 Nucleated RBC % 0.0 Immature Gran # 0.10 Segmented Neutrophils 97 H Lymphocytes 1 L Monocytes 2 Nucleated RBCs # 0.00 Platelet Estimate Adequate Microcytosis Slight ABG pH ABG pCO2 ABG pO2 ABG HCO3 ABG Total CO2 ABG O2 Saturation ABG Base Excess Sodium Potassium Chloride Carbon Dioxide Anion Gap BUN Creatinine GFR Calculation BUN/Creatinine Ratio Glucose POC Glucose 260 H 238 H Calculated Osmolality Calcium Phosphorus Magnesium Total Bilirubin AST ALT Alkaline Phosphatase Total Protein Albumin Globulin Albumin/Globulin Ratio 07/01/16 07/01/16 07/01/16 04:00 04:15 05:51 WBC RBC Hgb Hct MCV MCH MCHC RDW Plt Count MPV Neut % (Auto) Lymph % (Auto) [place] % (Auto) Eos % (Auto) Baso % (Auto) Neut # (Auto) Lymph # (Auto) [place] # (Auto) Eos # (Auto) Baso # (Auto) Total Counted Immature Gran % Nucleated RBC % Immature Gran # Segmented Neutrophils Lymphocytes Monocytes Nucleated RBCs # Platelet Estimate Microcytosis ABG pH 7.435 ABG pCO2 32.2 L ABG pO2 143.0 H ABG HCO3 22.9 ABG Total CO2 19.2 L ABG O2 Saturation 98.7 ABG Base Excess -1.8 Sodium 157 H Potassium 4.7 Chloride 126 H Carbon Dioxide 22 Anion Gap 13.7 BUN 45 H Creatinine 1.60 H GFR Calculation 66 BUN/Creatinine Ratio 28.00 H Glucose 262 H POC Glucose 246 H Calculated Osmolality 331.0 H Calcium 8.3 L Phosphorus 3.1 Magnesium 2.9 H Total Bilirubin 0.70 AST 103 H ALT 237 H Alkaline Phosphatase 68 Total Protein 5.9 L Albumin 3.0 L Globulin 2.9 Albumin/Globulin Ratio 1.0 L 07/01/16 07/01/16 07/01/16 07:29 09:37 13:40 WBC RBC Hgb Hct MCV MCH MCHC RDW Plt Count MPV Neut % (Auto) Lymph % (Auto) [place] % (Auto) Eos % (Auto) Baso % (Auto) Neut # (Auto) Lymph # (Auto) [place] # (Auto) Eos # (Auto) Baso # (Auto) Total Counted Immature Gran % Nucleated RBC % Immature Gran # Segmented Neutrophils Lymphocytes Monocytes Nucleated RBCs # Platelet Estimate Microcytosis ABG pH ABG pCO2 ABG pO2 ABG HCO3 ABG Total CO2 ABG O2 Saturation ABG Base Excess Sodium Potassium Chloride Carbon Dioxide Anion Gap BUN Creatinine GFR Calculation BUN/Creatinine Ratio Glucose POC Glucose 212 H 190 H 218 H Calculated Osmolality Calcium Phosphorus Magnesium Total Bilirubin AST ALT Alkaline Phosphatase Total Protein Albumin Globulin Albumin/Globulin Ratio 07/01/16 17:14 WBC RBC Hgb Hct MCV MCH MCHC RDW Plt Count MPV Neut % (Auto) Lymph % (Auto) [place] % (Auto) Eos % (Auto) Baso % (Auto) Neut # (Auto) Lymph # (Auto) [place] # (Auto) Eos # (Auto) Baso # (Auto) Total Counted Immature Gran % Nucleated RBC % Immature Gran # Segmented Neutrophils Lymphocytes Monocytes Nucleated RBCs # Platelet Estimate Microcytosis ABG pH ABG pCO2 ABG pO2 ABG HCO3 ABG Total CO2 ABG O2 Saturation ABG Base Excess Sodium Potassium Chloride Carbon Dioxide Anion Gap BUN Creatinine GFR Calculation BUN/Creatinine Ratio Glucose POC Glucose 268 H Calculated Osmolality Calcium Phosphorus Magnesium Total Bilirubin AST ALT Alkaline Phosphatase Total Protein Albumin Globulin Albumin/Globulin Ratio - Diagnostic Findings Procedure: Chest x-ray: report reviewed by me Quality Measures - VTE Contraindication to Pharmacological VTE Prophylaxis: High Risk of Bleeding
[2016-07-01] MEDS ORDERED: DOPamine 800 MG/250 ML PREMIX IV SCH (19:30)
[2016-07-01] MEDS ORDERED: VANCOMYCIN INJ 1,000 MG in SODIUM CHLORIDE 0.9% 250 ML IV ONE (20:17)
--- NOTE | 2016-07-01 20:20 | Event Note ---
Called about the patient regarding his drop in blood pressure: Patient admitted to the hospital area on for diffuse status post resuscitation there is evidence of brain anoxia. Patient had a heart attack and went to the cath status post stenting left anterior descending. He is maxed out on Levophed in the unit at 30 mics a minute and I was asked to see if we can add some of pressors. He is now on 7 mics per KG per minute on the left dopamine his blood pressure is 125/55 sinus control. Heart rate of 92. Examination well-developed muscular gentleman intubated sedated. Heart tones are normal no heart murmur no pericardial effusion lung sounds are okay. Peripheral tissues are warm with good peripheral perfusion. Plan: 1. Continue Levophed at 30 mics a minute with the added dopamine at 7 mics per kilogram per minute targeting mean arterial pressures above 65 mmHg 2. I noticed that the patient also is hyperosmolar with a sodium of 157 mmol/ L. He is on quarter normal saline to 100 mL/h we will continue that. Check BMP and magnesium level 12 hours 3. Broaden antibiotic treatment to include Zosyn 2.25 g IV q 6 hour. Add vancomycin 1 g now and 750 mg IV every 12 hours. Will consult pharmacy to manage pharmacokinetics and dosing of vancomycin. Discontinue the ceftriaxone. 4. Raise the quarter normal saline relates to 120 mL/h. Check BMP and magnesium every 12 hours alongside the check serum osmolality.
[2016-07-01] MEDS: PIPERACILLIN/TAZOBACTAM 3,375 MG in SODIUM CHLORIDE 0.9% 100 ML IV SCH (21:05)
[2016-07-01 22:47] LABS: Magnesium 2.8 MG/DL (1.8-2.4); Osmolality,Calculated 341.7 MOS/KG (273-304); Potassium 4.6 MMOL/L (3.5-5.1)
[2016-07-02] MEDS ORDERED: NOREPINEPHRINE 16 MG in SODIUM CHLORIDE 0.9% 234 ML IV SCH
[2016-07-02] MEDS ORDERED: VANCOMYCIN INJ 1,500 MG in SODIUM CHLORIDE 0.9% 500 ML IV SCH (01:00)
[2016-07-02] MEDS: DEXAMETHASONE 4 MG/1 ML VIAL IV SCH ×2 (01:33→11:11)
[2016-07-02] MEDS: INSULIN LISPRO 100 UNIT/ML SUBCUT SCH ×3 (02:15→11:12)
[2016-07-02 03:13] LABS: ABG Base Excess -2.5 MMOL/L (-2.5-2.5); ABG HCO3 22.4 MMOL/L (20-26); ABG Oxygen Saturation 97.8 % (95-100); ABG PCO2 30.2 MM HG (35-48); ABG PH 7.445 (7.35-7.45); ABG PO2 99.3 MM HG (80-95); ABG TCO2 18.7 MMOL/L (23-27)
[2016-07-02 03:18] LABS: Hematocrit 33.5 VOL% (42.0-52.0); Hemoglobin 10.3 GM/DL (14.0-18.0); Immature Granulocytes % 0.5 %; Immature Granulocytes Absolute 0.08 #; Lymphocytes # 0.5 10*3/uL (1.4-4.0); Mean Corpuscular HGB Conc 30.7 GM/DL (32-36); Mean Corpuscular Hemoglobin 30 PG (27-34); Mean Corpuscular Volume 97.1 FL (87-102); Mean Platelet Volume 9.9 FL (9.6-12.0); Monocytes # 0.7 10*3/uL (0.11-0.8); Monocytes % 4.3 % (1.7-12.7); Neutrophils # 14.7 10*3/uL (1.4-7.4); Neutrophils % 92.2 % (38.7-73.9); Platelet Count 238 T/CUMM (130-400); Red Blood Count 3.45 MC/CUMM (3.8-5.5); Red Cell Distribution Width 14.2 % (9.3-17.3)
[2016-07-02 04:32] LABS: Albumin 2.8 G/DL (3.4-5.0); Bilirubin,Total 0.4 MG/DL (0.2-1.0); Calcium 8.3 MG/DL (8.5-10.1); Phosphorous 2.3 MG/DL (2.5-4.9); Potassium 4.6 MMOL/L (3.5-5.1); Total Protein 5.7 G/DL (6.4-8.3)
[2016-07-02 04:33] LABS: Magnesium 3.1 MG/DL (1.8-2.4)
[2016-07-02] MEDS: PIPERACILLIN/TAZOBACTAM 3,375 MG in SODIUM CHLORIDE 0.9% 100 ML IV SCH (05:06)
[2016-07-02 05:13] LABS: Lymphocytes 4 % (20-55); Segmented Neutrophils 91 % (50-85); Total Cells Counted 100
[2016-07-02 05:14] LABS: Macrocytosis Slight; Platelet Estimate Normal
[2016-07-02] MEDS: SODIUM CHLORIDE 23.4% CONC INJ 38.5 MEQ in STERILE WATER INJ 1,000 ML IV SCH ×2 (05:58→09:11)
--- NOTE | 2016-07-02 07:29 | EKG Report ---
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
--- NOTE | 2016-07-02 08:20 | XRay Report ---
History: Patient on ventilator Date: 07/02/2016 at 3:13 AM Study: Chest x-ray AP portable Comparison exam: July 01, 2016 chest x-ray The endotracheal and nasogastric tubes are unchanged. There is a moderate sized left basilar pneumothorax as discussed with nurse Genesis by telephone at 8:12 AM. Critical test result. This pneumothorax is primarily basilar and is greater than 15%. There is no gross mediastinal shift. There is some passive atelectasis in the left lung base. The right lung is clear. The cardiomediastinal silhouette is unchanged. The pulmonary vasculature is not engorged. Osseous structures are similar. Impression: Moderate-sized left basilar pneumothorax with some passive atelectasis in the left lung base PROCEDURE INTERPRETED AT [facility] DEPARTMENT OF RADIOLOGY Final Report Signed by: Dr. Elana Michael
[2016-07-02] MEDS ORDERED: INSULIN GLARGINE 100 UNIT/ML SUBCUT SCH (08:51)
--- NOTE | 2016-07-02 09:22 | IR History and Physical Update ---
IR Pre-Procedure - History and Physical Reason for procedure:: 46 yo M intubated, cardiac arrest, spont left pneumothorax. Needs chest tube. History and Physical Changes: Left pneumo - Dictation Physical: refer to H&P completed by admitting physician - Physical Exam Vital Signs: Last Vital Signs Temp 97.0 F L 07/02/16 04:00 Pulse 87 07/02/16 06:00 Resp 18 07/02/16 06:02 BP 114/68 07/02/16 06:45 Pulse Ox 96 07/02/16 06:00 - Sedation IR anesthesia plan for sedation: none ASA Class: III - Risks Risks: Procedures explained. Risks discussed include, but not limited to, the following:[ ] All questions answered. The following alternatives were discussed:[ ] Assessment and Plan (1) Pneumothorax on left Status: Acute Assessment and plan: A: Left pneumo on vent P: Obtain consent from NOK. Place urgent left chest tube in IR. Current Visit: Yes
[2016-07-02] MEDS ORDERED: DEXTROSE 5% 1,000 ML IV SCH (09:30)
--- NOTE | 2016-07-02 09:43 | Nephrology Progress Note ---
Nephrology - PN: Subj Interval history: Patient is resting. His serum creatinine was 1.9. Serum creatinine is stable. The patient remains ventilated. Exam (PN)-Nephrology - Vital Signs Vital signs: Period Temp Pulse Resp BP Sys/Elias Pulse Ox Last 24 Hr 95.7 F-100.1 F 82-117 15-18 94-145/42-89 92-100 - General Appearance General appearance: well-developed, well-nourished Neck: supple Respiratory: clear Cardiology: regular rate, regular rhythm Gastrointestinal: normoactive bowel sounds - Lab 07/02/16 03:10 07/02/16 03:10 Most recent lab results ABG pH 7.445 (7.35-7.45) 07/02/16 03:10 ABG pCO2 30.2 MM HG (35-48) L 07/02/16 03:10 ABG pO2 99.3 MM HG (80-95) H 07/02/16 03:10 ABG HCO3 22.4 MMOL/L (20-26) 07/02/16 03:10 ABG O2 Saturation 97.8 % (95-100) 07/02/16 03:10 Calcium 8.3 MG/DL (8.5-10.1) L 07/02/16 03:10 Phosphorus 2.3 MG/DL (2.5-4.9) L 07/02/16 03:10 Magnesium 3.1 MG/DL (1.8-2.4) H 07/02/16 03:10 Assessment and Plan (1) s/p cardiac arrest Status: Acute Assessment and plan: Has undergone hypothermic therapy Current Visit: Yes (2) Cerebral edema due to anoxia Status: Acute Current Visit: Yes (3) Hypertension Status: Chronic Current Visit: Yes Qualifiers: Hypertension type: essential hypertension Qualified Code(s): I10 - Essential (primary) hypertension (4) Diabetes Status: Chronic Current Visit: Yes Qualifiers: Diabetes mellitus type: type 2 (5) Acute kidney injury Problem details: likely due to hypotensive/ischemic ATN, improving. No indication for renal replacement therapy. Premorbid. Status: Acute Assessment and plan: This is continuing to resolve. Avoid nephrotoxic agents. Current Visit: Yes
--- NOTE | 2016-07-02 09:48 | Cardiology Progress Note ---
<Clotilde Mujica - Last Filed: 07/02/16 09:45> Assessment and Plan (1) Coronary artery disease Status: Acute Assessment and plan: Patient underwent left heart catheterization per Dr. Molina with successful PCI placement to proximal LAD. Patient is doing well postoperatively. He is now completely rewarmed. -Continue aspirin -Continue Brilinta -Continue beta-roscoe -We will hold off on adding statin at this time until patient's liver enzymes stabilized. Further plan and addendum to follow per Dr. Benitez. Current Visit: Yes (2) s/p cardiac arrest Status: Acute Assessment and plan: He is status post hypothermia protocol, has been rewarmed. He is status post PCI to his LAD. Unfortunately, his neurologic recovery has not occurred. Nephrology has been consulted. Will await their recommendations. Current Visit: Yes (3) Hypertension Status: Chronic Assessment and plan: Yesterday, patient became hypotensive and vasopressors were initiated. Will attempt to wean vasopressors as patient tolerates. Current Visit: Yes Qualifiers: Hypertension type: essential hypertension Qualified Code(s): I10 - Essential (primary) hypertension (4) Diabetes Status: Chronic Assessment and plan: Management per hospital medicine. Current Visit: Yes Qualifiers: Diabetes mellitus type: type 2 (5) Cerebral edema due to anoxia Status: Acute Assessment and plan: Neurology has been consulted. Current Visit: Yes (6) Acute kidney injury Problem details: likely due to hypotensive/ischemic ATN, improving. No indication for renal replacement therapy. Premorbid. Status: Acute Assessment and plan: Nephrology is following. Current Visit: Yes (7) Elevated liver enzymes Status: Acute Assessment and plan: This is trending down. We will continue to monitor. Current Visit: Yes (8) Hypernatremia Status: Acute Assessment and plan: Agree with hospital medicine to increase patient's free water per NG tube. Bmp will be repeated later today. Current Visit: Yes (9) Pneumothorax on left Status: Acute Assessment and plan: Dr. Kwon has been consulted and patient will have a left chest tube placed today. 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 fib arrest while working out at the gym. On-site bystander CPR was initiated , the patient was resuscitated and transferred to our hospital. Hypothermia protocol was initiated and he was taken to [facility] where he underwent PCI with stenting to a 99% occluded proximal LAD. Patient's head CT revealed cerebral edema. He has not demonstrated any significant neurologic recovery. Neurology has been consulted. Yesterday, he became hypotensive, etiology is unclear. It may have possibly been related to his medications. Medications were adjusted and vasopressors were initiated. There was some consideration by the family for no further resuscitative measures but they are not clear how they would like to proceed at this time. Patient was seen and examined in the CCU this morning. He remains unresponsive and ventilated. This morning he was noted to have a spontaneous left pneumothorax. Dr. Kwon has been consulted for chest tube placement. He continues to require vasopressors. Currently receiving dopamine and Levophed. Will titrate these off as patient tolerates. Sodium of 164 noted. Hospital medicine has addressed this issue by increasing his free water per NGT. Will recheck BMP in the morning. White blood cell count continues to trend downward. Creatinine remains elevated at 1.9. Nephrology is following. Appreciate their recommendations. Liver enzymes are also trending downward. We will continue to monitor these. Vital signs are stable. Further plan and addendum to follow per Dr. Benitez. Exam (Progress Note) - Constitutional Vitals: Period Temp Pulse Resp BP Sys/Elias Pulse Ox Last 24 Hr 95.7 F-100.1 F 82-117 15-18 94-145/42-89 92-100 Exam: General appearance: normal weight, no acute distress, intubated, unresponsive - Head Head exam: Present: normocephalic, atraumatic,. Absent: hematoma, laceration - Eye Eye exam: Absent: conjunctival injection, periorbital swelling, scleral icterus , laceration to eyelids - ENT ENT exam: Present: normal exam, normal external ear exam - Neck Neck exam: Present: normal inspection. Absent: lymphadenopathy, meningismus, tenderness, thyromegaly - Respiratory Respiratory exam: Present: clear to auscultation bilaterally anteriorly, there is normal rise with ventilated breaths. Absent: accessory muscle use, chest wall tenderness - Cardiovascular Cardiovascular exam: Present: regular rate and rhythm. Absent: carotid bruit, gallop, JVD, rubs - GI/Abdominal GI/Abdominal exam: Present: normal bowel sounds. Absent: distended, firm, guarding, hernia, mass, tenderness, rebound, soft - Extremities Exam Extremities exam: Present: normal inspection, normal capillary refill. Absent: calf tenderness, edema - Back Exam Back exam: Unable to assess due to patient being on the ventilator - Neurological Exam Neurological exam: Unable to fully assess due to patient being on the ventilator. He remains unresponsive. - Psychiatric Psychiatric exam: Unable to assess due to patient being on the ventilator. Patient unresponsive. - Skin Skin exam: Present: normal color, warm, dry, intact. Absent: cyanosis, diaphoretic, rash, urticaria Result/EKG - Labs CBC & BMP: 07/02/16 03:10 07/02/16 03:10 Lab Results: I have reviewed the past 24 hour labs Labs: Laboratory Results - last 24 hr 07/01/16 07/01/16 07/01/16 09:37 13:40 17:14 WBC RBC Hgb Hct MCV MCH MCHC RDW Plt Count MPV Neut % (Auto) Lymph % (Auto) [place] % (Auto) Eos % (Auto) Baso % (Auto) Neut # (Auto) Lymph # (Auto) [place] # (Auto) Eos # (Auto) Baso # (Auto) Total Counted Immature Gran % Nucleated RBC % Immature Gran # Segmented Neutrophils Lymphocytes Monocytes Nucleated RBCs # Platelet Estimate Macrocytosis ABG pH ABG pCO2 ABG pO2 ABG HCO3 ABG Total CO2 ABG O2 Saturation ABG Base Excess Sodium Potassium Chloride Carbon Dioxide Anion Gap BUN Creatinine GFR Calculation BUN/Creatinine Ratio Glucose POC Glucose 190 H 218 H 268 H Serum Osmolality Calculated Osmolality Calcium Phosphorus Magnesium Total Bilirubin AST ALT Alkaline Phosphatase Total Protein Albumin Globulin Albumin/Globulin Ratio 07/01/16 07/01/16 07/01/16 20:01 20:25 21:28 WBC RBC Hgb Hct MCV MCH MCHC RDW Plt Count MPV Neut % (Auto) Lymph % (Auto) [place] % (Auto) Eos % (Auto) Baso % (Auto) Neut # (Auto) Lymph # (Auto) [place] # (Auto) Eos # (Auto) Baso # (Auto) Total Counted Immature Gran % Nucleated RBC % Immature Gran # Segmented Neutrophils Lymphocytes Monocytes Nucleated RBCs # Platelet Estimate Macrocytosis ABG pH ABG pCO2 ABG pO2 ABG HCO3 ABG Total CO2 ABG O2 Saturation ABG Base Excess Sodium 159 H Potassium 4.6 Chloride 131 H Carbon Dioxide 20 L Anion Gap 12.6 BUN 55 H D Creatinine 1.80 H GFR Calculation 56 BUN/Creatinine Ratio 30.00 H Glucose 328 H POC Glucose 273 H Serum Osmolality 351 H Calculated Osmolality 341.7 H Calcium 8.0 L Phosphorus Magnesium 2.8 H Total Bilirubin AST ALT Alkaline Phosphatase Total Protein Albumin Globulin Albumin/Globulin Ratio 07/02/16 07/02/16 07/02/16 02:11 03:10 03:10 WBC 16.0 H RBC 3.45 L Hgb 10.3 L Hct 33.5 L MCV 97.1 MCH 30 MCHC 30.7 L RDW 14.2 Plt Count 238 MPV 9.9 Neut % (Auto) 92.2 H Lymph % (Auto) 3.0 L [place] % (Auto) 4.3 Eos % (Auto) 0.0 Baso % (Auto) 0.0 Neut # (Auto) 14.7 H Lymph # (Auto) 0.5 L [place] # (Auto) 0.7 Eos # (Auto) 0.0 Baso # (Auto) 0.0 Total Counted 100 Immature Gran % 0.5 Nucleated RBC % 0.0 Immature Gran # 0.08 Segmented Neutrophils 91 H Lymphocytes 4 L Monocytes 5 Nucleated RBCs # 0.00 Platelet Estimate Normal Macrocytosis Slight ABG pH ABG pCO2 ABG pO2 ABG HCO3 ABG Total CO2 ABG O2 Saturation ABG Base Excess Sodium 164 H* Potassium 4.6 Chloride 137 H Carbon Dioxide 21 Anion Gap 10.6 BUN 53 H Creatinine 1.90 H GFR Calculation 53 BUN/Creatinine Ratio 27.00 H Glucose 267 H POC Glucose 402 H Serum Osmolality Calculated Osmolality 346.0 H Calcium 8.3 L Phosphorus 2.3 L Magnesium 3.1 H Total Bilirubin 0.40 AST 98 H ALT 179 H Alkaline Phosphatase 62 Total Protein 5.7 L Albumin 2.8 L Globulin 2.9 Albumin/Globulin Ratio 0.9 L 07/02/16 07/02/16 07/02/16 03:10 04:21 05:23 WBC RBC Hgb Hct MCV MCH MCHC RDW Plt Count MPV Neut % (Auto) Lymph % (Auto) [place] % (Auto) Eos % (Auto) Baso % (Auto) Neut # (Auto) Lymph # (Auto) [place] # (Auto) Eos # (Auto) Baso # (Auto) Total Counted Immature Gran % Nucleated RBC % Immature Gran # Segmented Neutrophils Lymphocytes Monocytes Nucleated RBCs # Platelet Estimate Macrocytosis ABG pH 7.445 ABG pCO2 30.2 L ABG pO2 99.3 H ABG HCO3 22.4 ABG Total CO2 18.7 L ABG O2 Saturation 97.8 ABG Base Excess -2.5 Sodium Potassium Chloride Carbon Dioxide Anion Gap BUN Creatinine GFR Calculation BUN/Creatinine Ratio Glucose POC Glucose 288 H 255 H Serum Osmolality Calculated Osmolality Calcium Phosphorus Magnesium Total Bilirubin AST ALT Alkaline Phosphatase Total Protein Albumin Globulin Albumin/Globulin Ratio Quality Measures - VTE Contraindication to Pharmacological VTE Prophylaxis: High Risk of Bleeding <Clifton Benitez - Last Filed: 07/02/16 11:04> Cardiology - PN: Subj Interval history: I have seen, interviewed, examined the patient and reviewed his chart and discussed the case with the mid-level provider and agree with the plan as outlined in the note. The patient continues to be unresponsive, and CT head shows progressive worsening. Prognosis is grim. Exam (Progress Note) - Constitutional Vitals: Period Temp Pulse Resp BP Sys/Elias Pulse Ox Last 24 Hr 96.1 F-100.1 F 82-117 18-18 94-145/42-89 94-100 Result/EKG - Labs CBC & BMP: 07/02/16 03:10 07/02/16 03:10 Labs: Laboratory Results - last 24 hr 07/01/16 07/01/16 07/01/16 13:40 17:14 20:01 WBC RBC Hgb Hct MCV MCH MCHC RDW Plt Count MPV Neut % (Auto) Lymph % (Auto) [place] % (Auto) Eos % (Auto) Baso % (Auto) Neut # (Auto) Lymph # (Auto) [place] # (Auto) Eos # (Auto) Baso # (Auto) Total Counted Immature Gran % Nucleated RBC % Immature Gran # Segmented Neutrophils Lymphocytes Monocytes Nucleated RBCs # Platelet Estimate Macrocytosis ABG pH ABG pCO2 ABG pO2 ABG HCO3 ABG Total CO2 ABG O2 Saturation ABG Base Excess Sodium Potassium Chloride Carbon Dioxide Anion Gap BUN Creatinine GFR Calculation BUN/Creatinine Ratio Glucose POC Glucose 218 H 268 H Serum Osmolality 351 H Calculated Osmolality Calcium Phosphorus Magnesium Total Bilirubin AST ALT Alkaline Phosphatase Total Protein Albumin Globulin Albumin/Globulin Ratio 07/01/16 07/01/16 07/02/16 20:25 21:28 02:11 WBC RBC Hgb Hct MCV MCH MCHC RDW Plt Count MPV Neut % (Auto) Lymph % (Auto) [place] % (Auto) Eos % (Auto) Baso % (Auto) Neut # (Auto) Lymph # (Auto) [place] # (Auto) Eos # (Auto) Baso # (Auto) Total Counted Immature Gran % Nucleated RBC % Immature Gran # Segmented Neutrophils Lymphocytes Monocytes Nucleated RBCs # Platelet Estimate Macrocytosis ABG pH ABG pCO2 ABG pO2 ABG HCO3 ABG Total CO2 ABG O2 Saturation ABG Base Excess Sodium 159 H Potassium 4.6 Chloride 131 H Carbon Dioxide 20 L Anion Gap 12.6 BUN 55 H D Creatinine 1.80 H GFR Calculation 56 BUN/Creatinine Ratio 30.00 H Glucose 328 H POC Glucose 273 H 402 H Serum Osmolality Calculated Osmolality 341.7 H Calcium 8.0 L Phosphorus Magnesium 2.8 H Total Bilirubin AST ALT Alkaline Phosphatase Total Protein Albumin Globulin Albumin/Globulin Ratio 07/02/16 07/02/16 07/02/16 03:10 03:10 03:10 WBC 16.0 H RBC 3.45 L Hgb 10.3 L Hct 33.5 L MCV 97.1 MCH 30 MCHC 30.7 L RDW 14.2 Plt Count 238 MPV 9.9 Neut % (Auto) 92.2 H Lymph % (Auto) 3.0 L [place] % (Auto) 4.3 Eos % (Auto) 0.0 Baso % (Auto) 0.0 Neut # (Auto) 14.7 H Lymph # (Auto) 0.5 L [place] # (Auto) 0.7 Eos # (Auto) 0.0 Baso # (Auto) 0.0 Total Counted 100 Immature Gran % 0.5 Nucleated RBC % 0.0 Immature Gran # 0.08 Segmented Neutrophils 91 H Lymphocytes 4 L Monocytes 5 Nucleated RBCs # 0.00 Platelet Estimate Normal Macrocytosis Slight ABG pH 7.445 ABG pCO2 30.2 L ABG pO2 99.3 H ABG HCO3 22.4 ABG Total CO2 18.7 L ABG O2 Saturation 97.8 ABG Base Excess -2.5 Sodium 164 H* Potassium 4.6 Chloride 137 H Carbon Dioxide 21 Anion Gap 10.6 BUN 53 H Creatinine 1.90 H GFR Calculation 53 BUN/Creatinine Ratio 27.00 H Glucose 267 H POC Glucose Serum Osmolality Calculated Osmolality 346.0 H Calcium 8.3 L Phosphorus 2.3 L Magnesium 3.1 H Total Bilirubin 0.40 AST 98 H ALT 179 H Alkaline Phosphatase 62 Total Protein 5.7 L Albumin 2.8 L Globulin 2.9 Albumin/Globulin Ratio 0.9 L 07/02/16 07/02/16 04:21 05:23 WBC RBC Hgb Hct MCV MCH MCHC RDW Plt Count MPV Neut % (Auto) Lymph % (Auto) [place] % (Auto) Eos % (Auto) Baso % (Auto) Neut # (Auto) Lymph # (Auto) [place] # (Auto) Eos # (Auto) Baso # (Auto) Total Counted Immature Gran % Nucleated RBC % Immature Gran # Segmented Neutrophils Lymphocytes Monocytes Nucleated RBCs # Platelet Estimate Macrocytosis ABG pH ABG pCO2 ABG pO2 ABG HCO3 ABG Total CO2 ABG O2 Saturation ABG Base Excess Sodium Potassium Chloride Carbon Dioxide Anion Gap BUN Creatinine GFR Calculation BUN/Creatinine Ratio Glucose POC Glucose 288 H 255 H Serum Osmolality Calculated Osmolality Calcium Phosphorus Magnesium Total Bilirubin AST ALT Alkaline Phosphatase Total Protein Albumin Globulin Albumin/Globulin Ratio
[2016-07-02] MEDS ORDERED: VANCOMYCIN INJ 750 MG in SODIUM CHLORIDE 0.9% 250 ML IV SCH (10:00)
[2016-07-02] MEDS ORDERED: SODIUM CHLORIDE 23.4% CONC INJ 38.5 MEQ in STERILE WATER INJ 1,000 ML IV SCH (10:00)
--- NOTE | 2016-07-02 10:20 | Pulmonology Progress Note ---
Pulmonary - PN: Subj Interval history: This is a 46-year-old white male had acute observed cardiac arrest while exercising around 4 AM in the morning. Resuscitative measures were started immediately. I saw him in pulmonary consultation 06/27/2016. My impressions were. 1. Acute cardiac arrest requiring resuscitation, intubation and mechanical ventilation, pressor agents. 2. Acute myocardial infarction. On cardiac catheterization 06/27/2016 the patient had a proximal LAD lesion which was stented and he had a muscular bridge. 3. Respiratory arrest secondary to cardiac arrest. 4. History of high blood pressure 5. History of diabetes mellitus 6. Strong family history of heart disease 7. Possible aspiration. 8. Cerebral edema secondary to #1 06/29/2016. Earlier today I evaluated the patient with fiberoptic bronchoscopy. Had a tremendous amount of retained secretions bilaterally. These were removed. He had an aspiration injury and left lower lung. Specimens were sent for bacterial and fungal studies. This patient was treated with Arctic sun and he was now off of this. He remains obtunded. He has underlying cerebral edema and he is being treated with Decadron. I have asked for weaning protocol and physical therapy protocol concerning his mechanical ventilation. Today's chest x-ray showed a minor amount of atelectasis in the right lower lung. Patient has no positive cultures. At the present time hyperventilating him to help with cerebral edema and also to help override an abnormal type of breathing pattern. Presently on mechanical ventilation his pH is 7.49, PCO2 is 22 PO2 is 196 with a bicarb of 20.4. His creatinine has gradually fallen from 1.6-1.9 with a BUN of 38. Electrolytes are normal. White blood cell count is 33,400 with 91 segs H&H is stable at 11.7/34.3. CPK was as high as 2316. Troponin reached 30.3. Proteins and albumin are low. 07/02/2016. Patient has developed a left sided pneumothorax. Dr. Archuleta and I have discussed this. Chest tube will be placed. Sodium is up to 164. Change the patient's IV fluids to D5W at 200 cc an hour. He was supposed to be seen by neurology today. He has a follow-up CT of the head ordered. He has had cerebral edema. He has been on Decadron and alveolar hyperventilation. I understand he is also to have a EEG today. Bronchoscopy specimens have grown methicillin resistant staph aureus and Acinetobacter. Antibiotics have been adjusted. Patient is now on vancomycin, Levaquin and cefepime. Creatinine and admission was 2.50. Today's value is 1.90. This patient is on 2 pressor agents. He has not woken up yet. Note that he has cerebral edema and his sodium is 164. Patient is not doing well on his weaning protocol. Physical exam. Vital signs. See below Chest. Slightly coarse large airway congestion little more prominent on the left as compared to the right Heart. Regular. Abdomen. Nondistended. I do not hear any bowel sounds Extremities. Nothing to suggest deep venous thrombophlebitis Neck. Symmetrical with no meningismus. Lymphatics. No submandibular cervical supraclavicular or epitrochlear adenopathy Neurologic. Obtunded. Additional exam is impossible The remainder of the physical exam is noncontributory. Plan. 1. Continue present medicines. 2. Fiberoptic bronchoscopy, 06/29/2016. See report. 3. 06/29/2016. Ventilator weaning protocol. Physical therapy protocol. Patient remains obtunded. 4. 07/02/2016. See today's note above Exam (Progress Note) - Constitutional Vitals: Period Temp Pulse Resp BP Sys/Elias Pulse Ox Last 24 Hr 96.1 F-100.1 F 82-117 18-18 94-145/42-89 94-100 Results - Labs CBC & BMP: 07/02/16 03:10 07/02/16 03:10
--- NOTE | 2016-07-02 10:22 | CT Report ---
Referring physician: Silvia Boss MD Exam: CT brain without contrast Date: July 02, 2016 Comparison: CT brain without contrast June 30, 2016 Reason: Cerebral edema The patient is an inpatient who was admitted on June 27, 2016. Technique: Axial images of the head were obtained without the use of contrast. Total DLP was 1073.1 mGy*cm. Findings: There is again diffuse loss of moreira-white differentiation and diffuse effacement of the sulci. There is also ill-defined low attenuation at the bilateral basal ganglia. This is again concerning for diffuse cerebral edema/anoxic brain injury. The suprasellar cistern is largely effaced today, suggesting uncal herniation. The fourth ventricle is also largely effaced, and there is increased density at the foramen magnum, which could reflect tonsillar herniation. No hydrocephalus is present. The distal tentorium is diffusely prominent compared to the adjacent brain parenchyma, but this is likely related to cerebral edema. No definite recent intracranial hemorrhage is identified. No acute osseous process is seen. There is mild fluid within the left mastoid air cells, but the right mastoid air cells are clear. There is patchy opacification of the ethmoid air cells and sphenoid sinuses bilaterally. Mild fluid is noted within the sphenoid sinuses. Impression: There is again evidence of diffuse cerebral edema/anoxic brain injury. Findings have worsened with now suggestion of uncal herniation and possibly tonsillar herniation. Findings were discussed with Dr. Nicholas on July 02, 2016 at 10:15 AM. This is a critical test. The CT exam was performed using one or more of the following dose reduction techniques: Automated exposure control and adjustment of the mA and/or kV according to patient size. PROCEDURE INTERPRETED AT [facility] DEPARTMENT OF RADIOLOGY Final Report Signed by: Dr. Zuleyma Beard
--- NOTE | 2016-07-02 10:31 | Event Note ---
Discussed CT brain findings with Dr. Archuleta. We will hold off on chest tube for now pending family meeting.
--- NOTE | 2016-07-02 10:48 | Hospitalist Progress Note ---
Assessment and Plan (1) Cerebral herniation Status: Acute Assessment and plan: DNR, comfort measures, continue current level of support. Family wants to be at bedside at this time, will address further withdrawal of care. Current Visit: Yes (2) Pneumothorax Status: Acute Current Visit: Yes (3) s/p cardiac arrest Status: Acute Current Visit: Yes (4) Cerebral edema due to anoxia Status: Acute Current Visit: Yes Hospitalist: Subjective Interval history: Mr Nuñez remained unresponsive this morning. I talked to his family and clarified with his that he is DNR if despite our efforts he does not survive. He developed a pneumothorax overnight and she did want us to proceed with chest tube while awaiting results of head CT and EEG. The head CT was obtained and showed herniation so the chest tube was cancelled. She and her children and their friends want to be with him in ICU and we can consider withdrawal of care once they have seen him. They also asked that we call the superintendent water and sewer systems. Exam - Constitutional Vitals: Period Temp Pulse Resp BP Sys/Elias Pulse Ox Last 24 Hr 96.1 F-100.1 F 82-117 18-18 94-145/42-89 94-100 General appearance: normal weight, no acute distress - Eye Eye exam: Absent: EOMI, scleral icterus Pupils: Present: dilated, fixed. Absent: MAMTA - Respiratory Respiratory exam: Present: clear to auscultation bilaterally - Cardiovascular Cardiovascular exam: Present: regular rate and rhythm, tachycardia - GI/Abdominal GI/Abdominal exam: Present: normal bowel sounds - Extremities Exam Extremities exam: Present: edema - Neurological Exam Neurological exam: Present: other (unresponive to stimuli) Results - Labs CBC & BMP: 07/02/16 03:10 07/02/16 03:10 Quality Measures - VTE Contraindication to Pharmacological VTE Prophylaxis: High Risk of Bleeding
[2016-07-02] MEDS: TICAGRELOR 90 MG TABLET PO SCH (11:11)
[2016-07-02] MEDS: MINERAL OIL/PETROLATUM OPH OINT 3.5 GM TUBE BOTH EYES SCH (11:11)
[2016-07-02] MEDS: FAMOTIDINE 20 MG/2 ML VIAL IV SCH (11:11)
[2016-07-02] MEDS: CARVEDILOL 12.5 MG TABLET PO SCH (11:11)
[2016-07-02] MEDS: ASPIRIN CHEW 81 MG TABLET PO SCH (11:11)
[2016-07-02] MEDS ORDERED: CEFEPIME 1,000 MG in SODIUM CHLORIDE 0.9% 100 ML IV SCH (11:30)
[2016-07-02] MEDS ORDERED: MUPIROCIN 2% OINT 22 GM TUBE TOP SCH (11:30)
[2016-07-02 12:30] LABS: ABG Base Excess -2.7 MMOL/L (-2.5-2.5); ABG HCO3 22.1 MMOL/L (20-26); ABG Oxygen Saturation 95.3 % (95-100); ABG PCO2 28.2 MM HG (35-48); ABG PH 7.461 (7.35-7.45); ABG PO2 75.2 MM HG (80-95)
[2016-07-02 13:25] VITALS: BP 46/22
[2016-07-02] MEDS ORDERED: ENOXAPARIN 40 MG/0.4 ML SYRINGE SUBCUT SCH (15:00)
--- NOTE | 2016-08-20 05:00 | Discharge Summary ---
DATE OF ADMISSION: 06/27/2016 DATE OF : 07/02/2016 HOSPITAL COURSE: Mr. Nuñez presented after an [id number] arrest. He was treated aggressively with resuscitation measures and when heart rhythm was restored he was treated with [facility] coolin g protocol. He was seen by Cardiology, who then became his attending. We were re-consulted several days later. His neurologic condition did not improve. On 07/02/16, I spoke with his family and clar ified with his that he was DNR. She also told me that he would not want to be sustained on life support at this point. Once her family was there, she was going to withdraw care and she also asked me to call the wagon drill operator. He developed pneumothorax that morning and a head CT after my conversation with her showed that he had herniation of uncus and possibly tonsils of the brain. After my convers ation with his family showed diffuse cerebral edema and anoxic brain injury worsening now to suggest uncal herniation and possibly tonsillar herniation. Mr. Nuñez shortly after.
== END 2016-07-02 13:11 | disposition expired | DRG 246 ==
LOC: EDBD → N.ED 06:43 → SUATTDRO 07:17 → N.EDINP 07:17 → N.CC 07:34
PROVIDERS: ADMIT Family Medicine; ATTEND Internal Medicine Cardiovascular Disease
PROC: CLCCHCL (ICD-10-PCS; 2016-06-27 12:45)